=== PATIENT | female | born 1950 | race Caucasian/White ===

== ENCOUNTER 2017-08-11 19:15 | Inpatient (IN) | payer MEDICARE, OTHER ==
[2017-08-11 20:11] LABS: BILIRUBIN,URINE NEGATIVE (NEG); CLARITY,URINE CLOUDY; GLUCOSE,URINE >=1000 mg/dL (NEG); NITRITE,URINE NEGATIVE (NEG); PROTEIN,URINE 100 mg/dL (NEG-TRACE); UROBILINOGEN,URINE 0.2 mg/dL (0.2 mg/dL)
[2017-08-11 20:22] LABS: COLOR,URINE STRAW
[2017-08-11 20:25] LABS: BACTERIA,URINE MANY /HPF (0-FEW); RBC,URINE RARE /HPF (0-2); SQUAMOUS EPITHELIAL CELL,UR MANY /LPF; WBC,URINE OCC /HPF (0-4); YEAST,URINE PRESENT /HPF
[2017-08-11 21:41] LABS: ADD MAN DIFF? NO
[2017-08-11 21:43] LABS: BASO # 0.1 x10^3/uL (0.0-0.2); BASO % 1 % (0-3); EOS % 0 % (0-3); HEMATOCRIT 42.4 % (36.0-47.0); HEMOGLOBIN 13.3 g/dL (12.0-15.5); LYMPH # 2.4 x10^3/uL (1.0-4.8); LYMPH % 17 % (24-48); MEAN CORPUSCULAR HEMOGLOBIN 26 pg (25-35); MEAN CORPUSCULAR HGB CONC 31 g/dL (31-37); MEAN CORPUSCULAR VOLUME 84 fL (79-100); MONO # 1.2 x10^3/uL (0.0-1.1); MONO % 8 % (0-9); NEUT # 10.5 x10^3uL (1.8-7.7); NEUT % 74 % (31-73); PLATELET COUNT 398 x10^3/uL (140-400); RED BLOOD COUNT 5.07 x10^6/uL (3.50-5.40); RED CELL DISTRIBUTION WIDTH 17.2 % (11.5-14.5); WHITE BLOOD COUNT 14.2 x10^3/uL (4.0-11.0)
[2017-08-11 21:52] LABS: INR 1.1 (0.8-1.1); PARTIAL THROMBOPLASTIN TIME 29 SEC (24-38); PROTHROMBIN TIME PATIENT 13.3 SEC (11.7-14.0)
[2017-08-11] MEDS: NYSTATIN 100,000 UNIT/GM TOPICAL OINTMENT 15GM TUBE. TP (21:56)
[2017-08-11] MEDS ORDERED: ONDANSETRON PF 4 MG/2 ML VIAL. IV (22:00)
[2017-08-11] MEDS ORDERED: DEXTROSE 50% 25 GM / 50ML DISP.SYRIN. IV (22:00)
[2017-08-11] MEDS ORDERED: ACETAMINOPHEN 325 MG TABLET. PO (22:00)
[2017-08-11] MEDS ORDERED: MORPHINE SULFATE 2 MG/ML DISP.SYRIN. IV (22:00)
[2017-08-11 22:02] LABS: ANION GAP 16 (6-14); BLOOD UREA NITROGEN 23 mg/dL (7-20); BUN/CREATININE RATIO 23 (6-20); CALCIUM 10.2 mg/dL (8.5-10.1); CARBON DIOXIDE 23 mmol/L (21-32); CHLORIDE 101 mmol/L (98-107); GFR 55.5; GLUCOSE 389 mg/dL (70-99); POTASSIUM 3.7 mmol/L (3.5-5.1); SODIUM 140 mmol/L (136-145)
[2017-08-11 22:07] LABS: ALBUMIN 3.3 g/dL (3.4-5.0); ALBUMIN/GLOBULIN RATIO 0.6 (1.0-1.7); ALK PHOS 136 U/L (46-116); ALT (SGPT) 26 U/L (14-59); AST (SGOT) 21 U/L (15-37); MAGNESIUM 2.2 mg/dL (1.8-2.4); TOTAL BILIRUBIN 0.6 mg/dL (0.2-1.0); TOTAL PROTEIN 8.6 g/dL (6.4-8.2)
[2017-08-11 22:09] LABS: TROPONINI 0.558 ng/mL (0.000-0.055)
[2017-08-11 22:10] LABS: NT-PRO BNP 1517 pg/mL (0-124)
[2017-08-11] MEDS: ERYTHROMYCIN 0.5% OPHTH OINTMENT 1GM TUBE. OU (22:15)
[2017-08-11] MEDS: IV NORMAL SALINE 1000ML BAG 1,000 ML IV (22:19)
[2017-08-12] MEDS: ASPIRIN ENTERIC COATED 325 MG TABLET.DR. PO (02:19)
[2017-08-12 05:55] LABS: ADD MAN DIFF? NO
[2017-08-12 06:02] LABS: BASO # 0.2 x10^3/uL (0.0-0.2); BASO % 1 % (0-3); EOS % 0 % (0-3); LYMPH # 2.2 x10^3/uL (1.0-4.8); LYMPH % 19 % (24-48); MEAN CORPUSCULAR HEMOGLOBIN 26 pg (25-35); MEAN CORPUSCULAR HGB CONC 32 g/dL (31-37); MEAN CORPUSCULAR VOLUME 83 fL (79-100); MONO # 1.2 x10^3/uL (0.0-1.1); MONO % 10 % (0-9); NEUT # 8.5 x10^3uL (1.8-7.7); NEUT % 70 % (31-73); PLATELET COUNT 343 x10^3/uL (140-400); RED BLOOD COUNT 4.56 x10^6/uL (3.50-5.40); RED CELL DISTRIBUTION WIDTH 16.3 % (11.5-14.5); WHITE BLOOD COUNT 12.1 x10^3/uL (4.0-11.0)
[2017-08-12 06:34] LABS: TROPONINI 0.582 ng/mL (0.000-0.055)
[2017-08-12 06:43] LABS: ANION GAP 14 (6-14); BLOOD UREA NITROGEN 18 mg/dL (7-20); CARBON DIOXIDE 21 mmol/L (21-32); CHLORIDE 103 mmol/L (98-107); CREATININE 0.8 mg/dL (0.6-1.0); GFR 71.8; GLUCOSE 323 mg/dL (70-99); POTASSIUM 3.9 mmol/L (3.5-5.1); SODIUM 138 mmol/L (136-145)
[2017-08-12] MEDS ORDERED: HYDROcodone/APAP 5/325MG 1 TAB TABLET PO (08:00)
[2017-08-12] MEDS ORDERED: DEXTROSE 50% 25 GM / 50ML DISP.SYRIN. IV (08:00)
[2017-08-12] MEDS: INSULIN ASPART 300 UNITS/3 ML INSULN.PEN SQ ×7 (08:00→18:14)
[2017-08-12] MEDS ORDERED: INSULIN ASPART 300 UNITS/3 ML INSULN.PEN SQ (08:00)
[2017-08-12] MEDS ORDERED: CALCIUM CARBONATE 500 MG TAB.CHEW PO (08:00)
[2017-08-12] MEDS ORDERED: ONDANSETRON PF 4 MG/2 ML VIAL. IV (08:00)
[2017-08-12 08:28] LABS: POC GLUCOSE 295 mg/dL (70-99)
[2017-08-12] MEDS: INSULIN DETEMIR 300 UNITS/3 ML INSULN.PEN. SQ (09:00)
[2017-08-12] MEDS: NYSTATIN 100,000 UNIT/GM TOPICAL OINTMENT 15GM TUBE. TP (09:00)
[2017-08-12] MEDS: LISINOPRIL 10 MG TABLET PO (09:30)
[2017-08-12] MEDS: METOPROLOL TART IMMED RELEASE 25 MG TABLET. PO ×2 (09:30→21:05)
[2017-08-12] MEDS: EYE-STREAM OPHTH SOLUTION 120 ML BOTTLE. OU (09:30)
[2017-08-12] MEDS: CITALOPRAM 20 MG TABLET. PO (09:30)
[2017-08-12 11:58] LABS: POC GLUCOSE 239 mg/dL (70-99)
[2017-08-12 12:00] LABS: TROPONINI 0.408 ng/mL (0.000-0.055)
[2017-08-12 13:02] LABS: CREATINE KINASE 256 U/L (26-192)
[2017-08-12 13:02] LABS: CHOLESTEROL 227 mg/dL (0-200); HDLC 67 mg/dL (40-60); LDLC 135 mg/dL (0-100); NON-HDL CHOLESTEROL 160 mg/dL (0-129); TRIGLYCERIDES 123 mg/dL (0-150); VLDLC 25 mg/dL (0-40)
[2017-08-12 13:05] LABS: CHOLESTEROL/HDL RATIO 3.4
[2017-08-12 13:10] LABS: THYROID STIM HORMONE (TSH) 0.881 uIU/mL (0.358-3.74)
[2017-08-12 16:49] LABS: POC GLUCOSE 345 mg/dL (70-99)
[2017-08-12 20:28] LABS: POC GLUCOSE 199 mg/dL (70-99)
[2017-08-12] MEDS: ATORVASTATIN CALCIUM 20 MG TABLET PO (21:04)
[2017-08-12] MEDS: NYSTATIN TOPICAL POWDER 15GM BOTTLE. TP (21:05)
[2017-08-13] MEDS: LABETALOL 20 MG/4 ML DISP.SYRIN. IVP ×3 (03:21→23:43)
[2017-08-13 07:57] LABS: POC GLUCOSE 256 mg/dL (70-99)
[2017-08-13] MEDS: INSULIN ASPART 300 UNITS/3 ML INSULN.PEN SQ ×5 (08:00→17:37)
[2017-08-13] MEDS: INSULIN DETEMIR 300 UNITS/3 ML INSULN.PEN. SQ (09:00)
[2017-08-13] MEDS: ASPIRIN ENTERIC COATED 81 MG TABLET.DR. PO (09:49)
[2017-08-13] MEDS: METOPROLOL TART IMMED RELEASE 25 MG TABLET. PO ×3 (09:50→21:16)
[2017-08-13] MEDS: NYSTATIN TOPICAL POWDER 15GM BOTTLE. TP ×3 (09:50→21:20)
[2017-08-13] MEDS: CITALOPRAM 20 MG TABLET. PO (09:50)
[2017-08-13] MEDS: LISINOPRIL 10 MG TABLET PO (09:50)
[2017-08-13 12:16] LABS: POC GLUCOSE 327 mg/dL (70-99)
[2017-08-13] MEDS: UREA 40% TOPICAL CREAM 28.3GM TUBE. TP (12:44)
[2017-08-13 17:13] LABS: POC GLUCOSE 237 mg/dL (70-99)
[2017-08-13] MEDS: ATORVASTATIN CALCIUM 20 MG TABLET PO (21:14)
[2017-08-13 21:22] LABS: POC GLUCOSE 224 mg/dL (70-99)
[2017-08-14 08:19] LABS: POC GLUCOSE 261 mg/dL (70-99)
[2017-08-14] MEDS: CITALOPRAM 20 MG TABLET. PO (09:29)
[2017-08-14] MEDS: ASPIRIN ENTERIC COATED 81 MG TABLET.DR. PO (09:29)
[2017-08-14] MEDS: METOPROLOL TART IMMED RELEASE 25 MG TABLET. PO (09:29)
[2017-08-14] MEDS: NYSTATIN TOPICAL POWDER 15GM BOTTLE. TP (09:30)
[2017-08-14] MEDS: LISINOPRIL 10 MG TABLET PO (09:30)
[2017-08-14] MEDS: UREA 40% TOPICAL CREAM 28.3GM TUBE. TP (09:31)
[2017-08-14] MEDS: INSULIN ASPART 300 UNITS/3 ML INSULN.PEN SQ ×4 (10:47→12:10)
[2017-08-14] MEDS: INSULIN DETEMIR 300 UNITS/3 ML INSULN.PEN. SQ (10:47)
[2017-08-14 11:54] LABS: POC GLUCOSE 393 mg/dL (70-99)
== END 2017-08-14 13:00 | DRG 280 ==
LOC: ER 19:15 → 2 SOUTH 20:33
DX: I21.4 Non-ST elevation (NSTEMI) myocardial infarction (principal); E43 Unspecified severe protein-calorie malnutrition; E11.22 Type 2 diabetes mellitus with diabetic chronic kidney disease; E11.42 Type 2 diabetes mellitus with diabetic polyneuropathy; E11.65 Type 2 diabetes mellitus with hyperglycemia; I48.91 Unspecified atrial fibrillation; Q21.1 Atrial septal defect; B35.1 Tinea unguium; S02.2XXA Fracture of nasal bones, initial encounter for closed fracture; D72.828 Other elevated white blood cell count; E86.0 Dehydration; B30.9 Viral conjunctivitis, unspecified; B37.9 Candidiasis, unspecified; I16.0 Hypertensive urgency; E66.9 Obesity, unspecified; E78.5 Hyperlipidemia, unspecified; F20.9 Schizophrenia, unspecified; F31.9 Bipolar disorder, unspecified; H93.19 Tinnitus, unspecified ear; M20.40 Other hammer toe(s) (acquired), unspecified foot; I12.9 Hypertensive chronic kidney disease with stage 1 through stage 4 chronic kidney disease, or unspecified chronic kidney disease; N18.9 Chronic kidney disease, unspecified; W19.XXXA Unspecified fall, initial encounter; F41.9 Anxiety disorder, unspecified; M19.90 Unspecified osteoarthritis, unspecified site; I89.0 Lymphedema, not elsewhere classified; Z68.32 Body mass index [BMI] 32.0-32.9, adult; Z86.73 Personal history of transient ischemic attack (TIA), and cerebral infarction without residual deficits; Z90.710 Acquired absence of both cervix and uterus; Z91.81 History of falling; Y93.89 Activity, other specified; Y92.098 Other place in other non-institutional residence as the place of occurrence of the external cause; Z90.49 Acquired absence of other specified parts of digestive tract; Y99.8 Other external cause status
CPT/HCPCS: 36415; 70450; 70486; 72125; 80048; 80053; 80061; 81001; 82550; 82962; 83036; 83735; 83880; 84443; 84484; 85025; 85610; 85730; 87086; 93005; 93306; 93880; 96360; 97110-GP; 97116-GP; 97162-GP; 97530-GP; 99285; 99285-25; J0690; J1815; J3490; J7030

== ENCOUNTER 2019-10-21 12:10 | Emergency (ER) | payer MEDICARE, MEDICAID ==
[~2019-10-21 12:10] MED LIST: AMLO10TA4 PO; AMLO5TAB10 PO; ASPI325T8 PO; ATOR20TA PO; ATOR20TA58 PO; BUME2TAB3 PO; CEPH-263 PO; CETI10TA24 PO; CITA20TA9 PO; DIVA250T PO; ENOX40DI SQ; HYDR-2868 PO; HYDR12.58 PO; INSU100I17 SQ; INSU100I27 SQ; INSU100V13 SQ; LEXAPRO10 MG PO; LISI10TA2 PO; LORA10TA68 PO; METO-239 PO; METO25TA4 PO; NYST15PO9 TP; SIMV20TA PO
[2019-10-21 13:00] VITALS: BP 148/69
--- NOTE | 2019-10-21 13:49 | RAD ---
EXAM: CT Head without IV contrast CLINICAL HISTORY: Trauma, head injury COMPARISON: CT head 10/03/2019 TECHNIQUE: Routine CT of the head without contrast. Soft tissues and bone windows were reviewed. RS compliance statement - One or more of the following individualized dose reduction techniques were utilized for this study: 1. Automated exposure control 2. Adjustment of the mA and/or kV according to patient size 3. Use of iterative reconstruction technique FINDINGS: The previously described left parafalcine hematoma is less conspicuous on today's examination. There is no evidence of new hemorrhage, mass or extra-axial fluid collection. Vila-white differentiation is maintained with no evidence of edema. Encephalomalacia left occipital and bilateral frontal regions are essentially unchanged. Subcortical, periventricular and deep white matter hypoattenuation likely changes of chronic white matter disease. There is no mass effect or shift of the intracranial structures. The ventricles, basilar cisterns and cortical sulci are normal in size and configuration for the patients stated age. The cerebellum and brainstem are unremarkable. The calvarium demonstrates no evidence of fracture or focal lesion. There is normal aeration of the visualized paranasal sinuses and mastoid air cells. The visualized portions of the orbits are normal. Prominent subcutaneous soft tissue swelling overlying the right frontal region with scalp hematoma. IMPRESSION: 1. Patency described left parafalcine subdural hematoma is less conspicuous on today's examination. 2. White matter hypoattenuation likely changes of chronic small vessel disease. 3. 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 4. Subcutaneous soft tissue swelling and scalp hematoma right frontal region. Electronically signed by: Carrington Molina MD (10/21/2019 1:46 PM) [email or web address]
--- NOTE | 2019-10-21 13:49 | RAD ---
EXAM: Right knee, 3 views. HISTORY: Fall. Pain. COMPARISON: None. FINDINGS: 3 views of the right knee are obtained. There is no fracture, dislocation or subluxation. There is no joint effusion. There is a small bone island within the proximal tibial metaphysis. There may be an infrapatellar soft tissue contusion. IMPRESSION: No acute osseous finding. Electronically signed by: Julianna Caro MD (10/21/2019 1:46 PM) [email or web address]
[2019-10-21 14:57] LABS: BILIRUBIN,URINE NEGATIVE (NEG); CLARITY,URINE CLEAR; COLOR,URINE YELLOW; NITRITE,URINE NEGATIVE (NEG); PROTEIN,URINE NEGATIVE (NEG-TRACE); UROBILINOGEN,URINE 0.2 mg/dL (0.2 mg/dL)
[2019-10-21 15:08] LABS: RBC,URINE OCC /HPF (0-2)
[2019-10-21 15:09] LABS: BACTERIA,URINE MANY /HPF (0-FEW); HYALINE CASTS, URINE OCCASIONAL /HPF; SQUAMOUS EPITHELIAL CELL,UR MANY /LPF
--- NOTE | 2019-10-21 15:10 | PHYS DOC ---
Past Medical History Past Medical History: Bipolar, Diabetes-Type II, Hypertension, Stroke Additional Past Medical Histor: MULTIPLE FALLS, EDEMA, COGNITIVE COMMUNICATION DEFICIT Past Surgical History: Other Additional Past Surgical Histo: UNKNOWN Smoking Status: Former Smoker Alcohol Use: None Drug Use: None Adult General Chief Complaint Chief Complaint: MECHANICAL FALL HPI HPI Patient is a 69 year old f with cc of fall [facility] she had a subdural to earlier in this month she tripped she was carrying 2 cups of water she could not catch her self she landed on her right knee and the top of her head denies any neck pain at all no numbness or tingling. No loss of consciousness symptoms are moderate in nature Review of Systems Review of Systems Constitutional: Denies fever or chills [] Eyes: Denies change in visual acuity, redness, or eye pain [] HENT: Denies nasal congestion or sore throat [] Respiratory: Denies cough or shortness of breath [] Cardiovascular: No additional information not addressed in HPI [] GI: Denies abdominal pain, nausea, vomiting, bloody stools or diarrhea [] All other systems were reviewed and found to be within normal limits, except as documented in this note. Allergies Allergies Allergies Coded Allergies Type Severity Reaction Last Updated Verified No Known Drug Allergies 07/04/14 No Physical Exam Physical Exam Constitutional: Well developed, well nourished, no acute distress, non-toxic appearance. [] HENT: Normocephalic, there is a contusion to the forehead there is no laceration there is no neck tenderness full range of motion of the neck specifically detailed neurologic examination of the hands revealed normal sensation normal strength no numbness or tingling Eyes: PERRLA, EOMI, conjunctiva normal, no discharge. [] Neck: Normal range of motion, no tenderness, supple, no stridor. [] Cardiovascular:Heart rate regular rhythm, no murmur [] Lungs & Thorax: Bilateral breath sounds clear to auscultation [] Abdomen: Bowel sounds normal, soft, no tenderness, no masses, no pulsatile masses. [] Skin: Warm, dry, no erythema, no rash. [] Back: No tenderness, no CVA tenderness. [] Extremities: There is a contusion to the right knee mild swelling mild ecchymosis Neurologic: Alert and oriented X 3, normal motor function, normal sensory functi on, no focal deficits noted. [] Psychologic: Affect normal, judgement normal, mood normal. [] EKG EKG [] Radiology/Procedures Radiology/Procedures []IMPRESSION: 1. Patency described left parafalcine subdural hematoma is less conspicuous on today's examination. 2. White matter hypoattenuation likely changes of chronic small vessel disease. 3. 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 4. Subcutaneous soft tissue swelling and scalp hematoma right frontal region. Electronically signed by: Carrington Molina MD (10/21/2019 1:46 PM) [email or web address] Impressions: FINDINGS: 3 views of the right knee are obtained. There is no fracture, dislocation or subluxation. There is no joint effusion. There is a small bone island within the proximal tibial metaphysis. There may be an infrapatellar soft tissue contusion. IMPRESSION: No acute osseous finding. Electronically signed by: Julianna Caro MD (10/21/2019 1:46 PM) [email or web address] DICTATED and SIGNED BY: JULIANNA CARO MD DATE: 10/21/19 134 Course & Med Decision Making Course & Med Decision Making Pertinent Labs and Imaging studies reviewed. (See chart for details) [] 69-year-old female presenting with mechanical fall she did have a subdural earlier this month noted the imaging above she is alert and oriented I think she is safe for discharge back to facility. Reassurance was provided Dragon Disclaimer Dragon Disclaimer This electronic medical record was generated, in whole or in part, using a voice recognition dictation system. Departure Departure Impression: Primary Impression: Fall Disposition: 01 HOME, SELF-CARE Condition: STABLE Patient Instructions: Fall Prevention and Home Safety, [id number] STUART ERAZO MD Oct 21, 2019 15:10
== END 2019-10-21 17:40 | disposition home or self-care (01) ==
LOC: ER 12:10
DX: S00.83XA Contusion of other part of head, initial encounter (principal); S80.01XA Contusion of right knee, initial encounter; E11.9 Type 2 diabetes mellitus without complications; I10 Essential (primary) hypertension; F31.9 Bipolar disorder, unspecified; Z86.73 Personal history of transient ischemic attack (TIA), and cerebral infarction without residual deficits; Z87.891 Personal history of nicotine dependence; W18.39XA Other fall on same level, initial encounter; Y93.89 Activity, other specified; Y92.89 Other specified places as the place of occurrence of the external cause; Y99.8 Other external cause status
CPT/HCPCS: 70450; 73562; 81001; 87086; 99285-25

== ENCOUNTER → 2019-10-27 | Outpatient (CLI) | payer MEDICARE, MEDICAID ==
[2019-10-05 11:09] VITALS: BP_DIAS 69
[2019-10-21 13:00] VITALS: BP_SYST 148
--- NOTE | 2019-10-27 09:25 | RAD ---
CT scan of the head without contrast 10/27/2019 Clinical History: History of subdural hematoma. Technique: Unenhanced, contiguous, 5 mm axial sections were obtained through the head. One or more of the following individualized dose reduction techniques were utilized for this study: 1. Automated exposure control. 2. Adjustment of the mA and/or kV according to patient size. 3. Use of iterative reconstruction technique. Findings: Comparison study is dated 10/21/2019. There is generalized parenchymal atrophy. Areas of decreased attenuation are seen within the periventricular and subcortical white matter of both cerebral hemispheres consistent with areas of small vessel ischemic disease. An area of encephalomalacia is seen involving the left occipital lobe, unchanged. The small subdural hematoma seen within the interhemispheric fissure on the previous study has resolved. No acute parenchymal abnormality is seen. No extra-axial fluid collection is noted. No skull fracture is seen. Impression: The small subdural hematoma within the interhemispheric fissure seen on the previous examination has resolved. No acute intracranial abnormality is seen. Electronically signed by: Elias Cool MD (10/27/2019 9:22 AM) [id number]
== END | disposition home or self-care (01) ==
LOC: CT 09:15
PROVIDERS: ATTEND Family Medicine
DX: G93.89 Other specified disorders of brain (principal)
CPT/HCPCS: 70450

== ENCOUNTER 2020-02-12 09:13 | Inpatient (IN) | payer MEDICARE, MEDICAID ==
[~2020-02-12] VITALS: Ht 152.4 cm; Wt 81.0 kg
[~2020-02-12 09:13] MED LIST changes: -CETI10TA24 PO; +CETI10TA74 PO
[2020-02-12] MEDS ORDERED: IV NORMAL SALINE 1000ML BAG 1,000 ML IV ONE ×2 (09:30→12:00)
[2020-02-12] MEDS ORDERED: DEXAMETHASONE SOD PHOS 4 MG/ML VIAL IVP ONE (10:15)
[2020-02-12] MEDS ORDERED: PIPERACILLIN/TAZOBACTAM 4.5 GM in IV NORMAL SALINE 100ML 100 ML IV ONE (10:15)
[2020-02-12] MEDS ORDERED: ONDANSETRON PF 4 MG/2 ML VIAL. IVP ONE (10:15)
[2020-02-12 10:23] LABS: CALCIUM 9.5 mg/dL (8.5-10.1); CREATININE 1.8 mg/dL (0.6-1.0); GFR 27.9; POTASSIUM 3.5 mmol/L (3.5-5.1)
[2020-02-12 10:29] LABS: ALBUMIN 2.8 g/dL (3.4-5.0); ALBUMIN/GLOBULIN RATIO 0.6 (1.0-1.7); MAGNESIUM 2.3 mg/dL (1.8-2.4); TOTAL BILIRUBIN 0.2 mg/dL (0.2-1.0); TOTAL PROTEIN 7.5 g/dL (6.4-8.2)
[2020-02-12 10:40] LABS: PROTHROMBIN TIME PATIENT 12.5 SEC (11.7-14.0)
--- NOTE | 2020-02-12 10:41 | RAD ---
EXAM: PORTABLE CHEST 1V INDICATION: Reason: weakness, fall / Spl. Instructions: / History: . TECHNIQUE: Single view COMPARISON: 10/03/2019 chest x-ray FINDINGS: Stable borderline enlargement of the cardiac silhouette. Calcification and tortuosity of the thoracic aorta is redemonstrated. There is no hilar or mediastinal mass. The lungs are mildly hypoventilatory but otherwise clear. There is no pleural effusion or pneumothorax. There are no significant osseous abnormalities. IMPRESSION: No active cardiopulmonary disease. Electronically signed by: Ra Leach MD (02/12/2020 10:38 AM) [id number]
--- NOTE | 2020-02-12 10:54 | RAD ---
EXAM: CT Head without IV contrast INDICATION: Reason: syncope, pain s/p fall,ALSO CXR GILLES ROONEY IN ROOM, IV, LABS 10:10AM. NC / Spl. Instructions: / History: TECHNIQUE: Multi-detector row CT images were obtained of the head without the use of IV contrast. All CT scans performed at this facility utilize dose optimization techniques as appropriate to the exam, including the following: Automated exposure control and adjustment of the mA and/or KV according to patient size (this includes techniques or standardized protocols for targeted exams where dose is indication/reason for exam). COMPARISON: 10/27/[address] FINDINGS: BRAIN PARENCHYMA: No evidence of acute intraparenchymal hemorrhage or infarct. There is chronic septal malacia in the left occipital lobe similar to prior and generalized parenchymal volume loss with white matter low density compatible chronic ischemic microvascular change. VENTRICLES & EXTRA-AXIAL SPACES: Ventricles are within normal limits. Basilar cisterns are patent. No pathologic extra-axial fluid collection or mass. ORBITS: Orbital contents are unremarkable. SINUSES: Visualized paranasal sinuses and mastoid air cells are clear. OSSEOUS & SOFT TISSUES: Calvarium and skull base are intact. IMPRESSION: No acute intracranial pathology. Atrophy and chronic ischemic microvascular change with a chronic infarct in the left occipital lobe. EXAM: CT Cervical Spine without IV contrast INDICATION: Reason: syncope, pain s/p fall,ALSO CXR GILLES ROONEY IN ROOM, IV, LABS 10:10AM. NC / Spl. Instructions: / History: TECHNIQUE: Multi-detector row CT images were obtained through the cervical spine without the use of IV contrast. Post-processing sagittal and coronal reconstructed images were obtained for interpretation. All CT scans performed at this facility utilize dose optimization techniques as appropriate to the exam, including the following: Automated exposure control and adjustment of the mA and/or KV according to patient size (this includes techniques or standardized protocols for targeted exams where dose is indication/reason for exam). COMPARISON: MRI C-spine 05/28/2014 FINDINGS: CRANIOCERVICAL JUNCTION: Unremarkable. ALIGNMENT: Alignment is within normal limits. OSSEOUS: Generalized osteopenia. No acute fracture or aggressive appearing osseous lesions noted. DISC SPACES: Also mild degenerative changes in the cervical spine, notably at C6-C7 where disc space narrowing and minimal endplate ossific spurring is most conspicuous. FACET JOINTS: Unremarkable SPINAL CANAL: Unremarkable. NEUROFORAMINA: Unremarkable. SOFT TISSUES: Unremarkable. IMPRESSION: No acute findings in the cervical spine. No acute fracture or traumatic malalignment shown. Electronically signed by: Ra Leach MD (02/12/2020 10:51 AM) [id number]
[2020-02-12 10:57] LABS: VAL ACID 47 mcg/mL (50-100)
--- NOTE | 2020-02-12 10:59 | RAD ---
PROCEDURE: HUMERUS RIGHT, FOREARM RIGHT STUDY DATE: 02/12/2020 CLINICAL INDICATION / HISTORY: Reason: Right forearm pain s/p fall / Spl. Instructions: / History: . TECHNIQUE: Right forearm 2 views. AP and lateral views. COMPARISON: None FINDINGS: No fracture or dislocation is identified. The bone density appears normal. The wrist and elbow joints are approximated. No soft tissue abnormality is seen. IMPRESSION: No abnormality identified. PROCEDURE: HUMERUS RIGHT, FOREARM RIGHT STUDY DATE: 02/12/2020 CLINICAL INDICATION / HISTORY: Reason: Right arm pain s/p fall / Spl. Instructions: / History: . TECHNIQUE: Two views of the right humerus were obtained COMPARISON: Right forearm x-rays same day FINDINGS: The osseous structures are normally mineralized. There is normal bony alignment present. There is no evidence of acute fracture or dislocation identified. The overlying soft tissues are grossly unremarkable. IMPRESSION: Unremarkable examination of the right humerus. Electronically signed by: Ra Leach MD (02/12/2020 10:56 AM) [id number]
[2020-02-12] MEDS ORDERED: fentaNYL PF VIAL 100 MCG/2 ML VIAL IV ONE (11:15)
--- NOTE | 2020-02-12 11:33 | PHYS DOC ---
Past Medical History Past Medical History: Bipolar, Diabetes-Type II, Hypertension, Stroke Additional Past Medical Histor: MULTIPLE FALLS, EDEMA, COGNITIVE COMMUNICATION DEFICIT Past Medical History Limited due to patient's baseline mentation. Past Surgical History: Other Additional Past Surgical Histo: UNKNOWN Past Surgical History Limited due to patient's baseline mentation. Smoking Status: Former Smoker Alcohol Use: None Drug Use: None Social History Limited due to patient's baseline mentation. General Adult EDM: Chief Complaint: MECHANICAL FALL HPI: HPI: Patient is a 69 year old female with history of prior stroke with cognitive delay presents after being found "face down" by nursing staff at 0745 after unwitnessed fall. Patient reports some right arm pain. Denies other injury. Reports history of nausea and vomiting. Denies known fever. Denies COVID-19 exposure. History of present illness limited due to patient's baseline mentation. Review of Systems: Review of Systems: Constitutional: Denies fever or chills HENT: Denies epistaxis GI: Reports nausea and vomiting : Denies dysuria Musculoskeletal: Reports right arm pain; denies neck pain Integument: Denies laceration Neurologic: Denies headache Review of systems limited due to patient's baseline mentation. Current Medications: Current Medications Medications (Trade) Dose Ordered Sig/Glory Start Time Stop Time Status Last Admin Dose Admin Dexamethasone Sodium Phosphate (Decadron) 10 mg 1X ONCE 02/12/20 10:15 02/12/20 10:16 DC 02/12/20 10:25 10 MG Fentanyl Citrate (Fentanyl 2ml Vial) 50 mcg 1X ONCE 02/12/20 11:15 02/12/20 11:17 DC 02/12/20 11:20 50 MCG Ondansetron HCl (Zofran) 4 mg 1X ONCE 02/12/20 10:15 02/12/20 10:16 DC 02/12/20 10:24 4 MG Piperacillin Sod/ Tazobactam Sod 4.5 gm/Sodium Chloride 100 ml @ 200 mls/hr 1X ONCE 02/12/20 10:15 02/12/20 10:44 DC 02/12/20 11:11 200 MLS/HR Sodium Chloride 1,000 ml @ 1,000 mls/hr 1X ONCE 02/12/20 09:30 02/12/20 10:29 DC 02/12/20 09:30 1,000 MLS/HR Allergies: Allergies: Allergies Coded Allergies Type Severity Reaction Last Updated Verified No Known Drug Allergies 07/04/14 No Physical Exam: PE: Constitutional: Well developed, well nourished, no acute distress, non-toxic appearance HENT: Normocephalic, atraumatic, no epistaxis noted Eyes: PERRL, EOMI, conjunctiva normal, no discharge Neck: C-collar in place, no midline tenderness, supple Lungs & Thorax: Increased work of breathing, tachypnea Abdomen: Soft, no tenderness, no guarding; pelvis stable and nontender Skin: Warm, dry, no erythema, no rash Back: No midline tenderness, no CVA tenderness Extremities:Right humeral and forearm tenderness with ROM, no deformity, right radial pulse +2, sensation intact Neurologic: Alert and oriented X name, confused, GCS 14, no focal deficits noted Psychologic: Affect normal, judgment abnormal Current Patient Data: Labs: Laboratory Tests Test 02/12/20 09:50 02/12/20 10:22 Prothrombin Time 12.5 SEC (11.7-14.0) Prothrombin Time INR 1.0 (0.8-1.1) Activated Partial Thromboplast Time 25 SEC (24-38) Sodium Level 141 mmol/L (136-145) Potassium Level 3.5 mmol/L (3.5-5.1) Chloride Level 100 mmol/L (98-107) Carbon Dioxide Level 27 mmol/L (21-32) Anion Gap 14 (6-14) Blood Urea Nitrogen 34 mg/dL (7-20) H Creatinine 1.8 mg/dL (0.6-1.0) H Estimated GFR (Cockcroft-Gault) 27.9 BUN/Creatinine Ratio 19 (6-20) Glucose Level 242 mg/dL (70-99) H Lactic Acid Level 3.6 mmol/L (0.4-2.0) H Calcium Level 9.5 mg/dL (8.5-10.1) Magnesium Level 2.3 mg/dL (1.8-2.4) Total Bilirubin 0.2 mg/dL (0.2-1.0) Aspartate Amino Transferase (AST) 30 U/L (15-37) Alanine Aminotransferase (ALT) 29 U/L (14-59) Alkaline Phosphatase 98 U/L (46-116) Creatine Kinase 109 U/L (26-192) Creatine Kinase MB (Mass) 0.9 ng/mL (0.0-3.6) Creatine Kinase MB Relative Index 0.8 % (0-4) Troponin I Quantitative < 0.017 ng/mL (0.000-0.055) Total Protein 7.5 g/dL (6.4-8.2) Albumin 2.8 g/dL (3.4-5.0) L Albumin/Globulin Ratio 0.6 (1.0-1.7) L Valproic Acid Level 47 mcg/mL (50-100) L Valproic Acid Last Dose Date Unknown Valproic Acid Last Dose Time Unknown Laboratory Tests 02/12/20 09:50 Vital Signs: Vital Signs Date Time Temp Pulse Resp B/P (MAP) Pulse Ox O2 Delivery O2 Flow Rate FiO2 02/12/20 10:10 97.7 61 25 167/79 (108) 90 Nasal Cannula 5.0 97.7 EKG: EKG: @0941 NSR at 68bpm, wandering baseline in V3, NO ST elevation, QRS 90ms, QT/QTc 502/534ms Radiology/Procedures: Radiology/Procedures: PROCEDURE: CT HEAD AND CERVICAL SPINE WO EXAM: CT Head without IV contrast INDICATION: Reason: syncope, pain s/p fall,ALSO CXR GILLES ROONEY IN ROOM, IV, LABS 10:10AM. NC / Spl. Instructions: / History: TECHNIQUE: Multi-detector row CT images were obtained of the head without the use of IV contrast. All CT scans performed at this facility utilize dose optimization techniques as appropriate to the exam, including the following: Automated exposure control and adjustment of the mA and/or KV according to patient size (this includes techniques or standardized protocols for targeted exams where dose is indication/reason for exam). COMPARISON: 10/27/[address] FINDINGS: BRAIN PARENCHYMA: No evidence of acute intraparenchymal hemorrhage or infarct. There is chronic septal malacia in the left occipital lobe similar to prior and generalized parenchymal volume loss with white matter low density compatible chronic ischemic microvascular change. VENTRICLES & EXTRA-AXIAL SPACES: Ventricles are within normal limits. Basilar cisterns are patent. No pathologic extra-axial fluid collection or mass. ORBITS: Orbital contents are unremarkable. SINUSES: Visualized paranasal sinuses and mastoid air cells are clear. OSSEOUS & SOFT TISSUES: Calvarium and skull base are intact. IMPRESSION: No acute intracranial pathology. Atrophy and chronic ischemic microvascular change with a chronic infarct in the left occipital lobe. EXAM: CT Cervical Spine without IV contrast INDICATION: Reason: syncope, pain s/p fall,ALSO CXR GILLES ROONEY IN ROOM, IV, LABS 10:10AM. NC / Spl. Instructions: / History: TECHNIQUE: Multi-detector row CT images were obtained through the cervical spine without the use of IV contrast. Post-processing sagittal and coronal reconstructed images were obtained for interpretation. All CT scans performed at this facility utilize dose optimization techniques as appropriate to the exam, including the following: Automated exposure control and adjustment of the mA and/or KV according to patient size (this includes techniques or standardized protocols for targeted exams where dose is indication/reason for exam). COMPARISON: MRI C-spine 05/28/2014 FINDINGS: CRANIOCERVICAL JUNCTION: Unremarkable. ALIGNMENT: Alignment is within normal limits. OSSEOUS: Generalized osteopenia. No acute fracture or aggressive appearing osseous lesions noted. DISC SPACES: Also mild degenerative changes in the cervical spine, notably at C6-C7 where disc space narrowing and minimal endplate ossific spurring is most conspicuous. FACET JOINTS: Unremarkable SPINAL CANAL: Unremarkable. NEUROFORAMINA: Unremarkable. SOFT TISSUES: Unremarkable. IMPRESSION: No acute findings in the cervical spine. No acute fracture or traumatic malalignment shown. Electronically signed by: Ra Leach MD (02/12/2020 10:51 AM) [id number] PROCEDURE: PORTABLE CHEST 1V EXAM: PORTABLE CHEST 1V INDICATION: Reason: weakness, fall / Spl. Instructions: / History: . TECHNIQUE: Single view COMPARISON: 10/03/2019 chest x-ray FINDINGS: Stable borderline enlargement of the cardiac silhouette. Calcification and tortuosity of the thoracic aorta is redemonstrated. There is no hilar or mediastinal mass. The lungs are mildly hypoventilatory but otherwise clear. There is no pleural effusion or pneumothorax. There are no significant osseous abnormalities. IMPRESSION: No active cardiopulmonary disease. Electronically signed by: Ra Leach MD (02/12/2020 10:38 AM) [id number] PROCEDURE: HUMERUS RIGHT, FOREARM RIGHT STUDY DATE: 02/12/2020 CLINICAL INDICATION / HISTORY: Reason: Right forearm pain s/p fall / Spl. Instructions: / History: . TECHNIQUE: Right forearm 2 views. AP and lateral views. COMPARISON: None FINDINGS: No fracture or dislocation is identified. The bone density appears normal. The wrist and elbow joints are approximated. No soft tissue abnormality is seen. IMPRESSION: No abnormality identified. PROCEDURE: HUMERUS RIGHT, FOREARM RIGHT STUDY DATE: 02/12/2020 CLINICAL INDICATION / HISTORY: Reason: Right arm pain s/p fall / Spl. Instructions: / History: . TECHNIQUE: Two views of the right humerus were obtained COMPARISON: Right forearm x-rays same day FINDINGS: The osseous structures are normally mineralized. There is normal bony alignment present. There is no evidence of acute fracture or dislocation identified. The overlying soft tissues are grossly unremarkable. IMPRESSION: Unremarkable examination of the right humerus. Electronically signed by: Ra Leach MD (02/12/2020 10:56 AM) [id number] Course & Med Decision Making: Course & Med Decision Making Pertinent Labs and Imaging studies reviewed. (See chart for details) Patient presents with history of unwitnessed fall at longterm. Reports patient found face down. Patient with history of cognitive delay and poor historian. Patient with SOA and hypoxia down to 88% on RA. Improved with supplemental O2. SIRS criteria met. Cannot exclude COVID19. COVID precautions in place. CT head/cervical spine without acute process. Labs obtained and pos db to chart. COVID testing pending. Lactic acidosis noted. CXR without acute process. Patient also c/o on right arm pain on exam. XR humerus and forearm without acute process. UA without signs of infection. Patient requiring admission for further evaluation and treatment. Discussed with Dr. Olvera ( hospitalist) who is in agreement with admission. COVID-19 CRITERIA: The patient was evaluated during the global COVID-19 pandemic, and that diagnosis was suspected/considered upon their initial presentation. Their evaluation, treatment and testing was consistent with current guidelines for patients who present with complaints or symptoms that may be related to COVID-19. Ralf Disclaimer: Ralf Disclaimer: This electronic medical record was generated, in whole or in part, using a voice recognition dictation system. Departure Departure Impression: Primary Impression: Weakness Additional Impressions: Suspected 2019 novel coronavirus infection Lactic acidosis SIRS (systemic inflammatory response syndrome) Elevated d-dimer Disposition: ADMITTED INPATIENT Admitting Physician: VINAY Ames) Condition: GUARDED Referrals: NON,STAFF (PCP) Justicifation of Admission Dx: Justifications for Admission: Justification of Admission Dx: Yes Comments: Weakness, lactic acidosis, SIRS COVID-19 Assessment: COVID-19 Patient Risks: Age 65 or older: Yes Sign of co-morbidity: Yes Exp to person + for COVID: No Exp to PUI: Yes ([facility] has + patients) Travel from affected area: No Lower respiratory symptoms: Yes Fever: No PPE Use: Full PPE with N95 mask or PAPR: Yes Critical Care Time Critical care time was 30 minutes which includes time at bedside, spent in discussion of patient's care with specialists and/or family members, with interpretation of laboratory and/or radiological studies and is exclusive of procedures. ALEM LINDSAY DO Feb 12, 2020 11:33
[2020-02-12 11:40] LABS: BASO # 0.1 x10^3/uL (0.0-0.2); BASO % 1 % (0-3); EOS % 0 % (0-3); HEMATOCRIT 33.7 % (36.0-47.0); HEMOGLOBIN 10.8 g/dL (12.0-15.5); LYMPH # 0.9 x10^3/uL (1.0-4.8); LYMPH % 7 % (24-48); MEAN CORPUSCULAR HEMOGLOBIN 26 pg (25-35); MEAN CORPUSCULAR HGB CONC 32 g/dL (31-37); MEAN CORPUSCULAR VOLUME 80 fL (79-100); MONO # 0.8 x10^3/uL (0.0-1.1); MONO % 6 % (0-9); NEUT # 11.6 x10^3/uL (1.8-7.7); NEUT % 87 % (31-73); PLATELET COUNT 365 x10^3/uL (140-400); RED BLOOD COUNT 4.19 x10^6/uL (3.50-5.40); RED CELL DISTRIBUTION WIDTH 17.4 % (11.5-14.5); WHITE BLOOD COUNT 13.4 x10^3/uL (4.0-11.0)
[2020-02-12 11:47] LABS: BILIRUBIN,URINE NEGATIVE (NEG); CLARITY,URINE CLEAR; COLOR,URINE YELLOW; NITRITE,URINE NEGATIVE (NEG); PH,URINE 5.5 (<5.0-8.0); PROTEIN,URINE NEGATIVE (NEG-TRACE); UROBILINOGEN,URINE 0.2 mg/dL (0.2 mg/dL)
[2020-02-12 11:54] LABS: AMORPHOUS SEDIMENT,UR PRESENT /HPF; BACTERIA,URINE 0 /HPF (0-FEW); HYALINE CASTS, URINE OCCASIONAL /HPF; RBC,URINE OCC /HPF (0-2); SQUAMOUS EPITHELIAL CELL,UR FEW /LPF
[2020-02-12] MEDS ORDERED: IV NORMAL SALINE 500ML BAG 500 ML IV ONE (12:00)
[2020-02-12 12:43] LABS: % BASOS 2 % (0-3); % LYMPHS 7 % (24-48); % MONOS 4 % (0-10); % SEGS 87 % (35-66); PLT ESTIMATE ADEQUATE (ADEQUATE)
[2020-02-12 12:44] LABS: ANISOCYTOSIS SLIGHT
[2020-02-12] MEDS ORDERED: fentaNYL PF VIAL 100 MCG/2 ML VIAL IV PRN (14:30)
[2020-02-12] MEDS ORDERED: ACETAMINOPHEN 325 MG TABLET. PO PRN (14:30)
[2020-02-12] MEDS ORDERED: ONDANSETRON PF 4 MG/2 ML VIAL. IV PRN (14:30)
[2020-02-12] MEDS ORDERED: DEXTROSE 50% 25 GM / 50ML DISP.SYRIN. IV PRN (14:30)
[2020-02-12 16:30] VITALS: BP 138/66
[2020-02-12] MEDS: INSULIN LISPRO 300 UNITS/3 ML VIAL. SQ SCH (17:00)
[2020-02-12 19:00] VITALS: BP 157/70
[2020-02-12] MEDS ORDERED: INSU100I13 SQ (19:58)
[2020-02-12 23:00] VITALS: BP 144/67
[2020-02-13] VITALS (7 sets, daily range): BP systolic 132–175; BP diastolic 60–79
[2020-02-13] MEDS: INSULIN LISPRO 300 UNITS/3 ML VIAL. SQ SCH ×3 (08:00→17:00)
--- NOTE | 2020-02-13 14:55 | NUR ---
SW following. KARLA reviewed chart and spoke with RN. Pt resides in LTC at [facility], , (fax) and plans to return to SNU when stable. KARLA spoke with Tiago from [facility] and pt's insurance does not require 3 overnights for SNU. Pt on 4l 02 and COVID results are pending. SW reviewed humerus and forearm x-ray and there are no fractures. PT/OT to evaluate this pt. SW to continue following.
[2020-02-13] MEDS: hydrALAZINE 25 MG TABLET PO SCH ×2 (16:10→21:55)
[2020-02-13] MEDS: METOPROLOL TART IMMED RELEASE 25 MG TABLET. PO SCH ×2 (16:10→21:57)
[2020-02-13] MEDS: VALPROIC ACID (AS SODIUM SALT) 250 MG in IV DEXTROSE 5% 50 ML IV SCH ×4 (17:00→23:00)
--- NOTE | 2020-02-13 19:07 | PDOC1 ---
History and Physical Date of Admission: Date of Admission DATE: 02/13/20 TIME: 18:53 Chief Complaint: Problems: (1) Falls frequently (2) Bipolar 1 disorder (3) Dementia (4) Anemia (5) Fall at assisted (6) Diabetes Chief Complain: fall from standing History of Present Illness: HPI: Patient is a 69-year-old female with past medical history of diabetes, hypertension, history of stroke, bipolar disorder. Comes to the ED after an unwitnessed fall at [facility] this morning at 745. Patient was found on the floor face down to her room and nurse states that she was able to walk back to her bed the patient was able to ambulate at this time. On arrival patient's O2 saturation on room air was 88% she was placed on nasal cannula 2 L and she was satting at 90%. Patient seen at bedside this morning and she is alert and awake and oriented x1. She is somewhat agitated on upon questioning Allergies: Allergies: Coded Allergies: No Known Drug Allergies (Unverified , 07/04/14) Family History: Family History: None Social History: Social History: Smoking Status: Former Smoker Alcohol Use: None Drug Use: None Current Medications: Current Medications Current Medications Sodium Chloride 1,000 ml @ 1,000 mls/hr 1X ONCE IV Last administered on 02/12/20at 09:30; Start 02/12/20 at 09:30; Stop 02/12/20 at 10:29; Status DC Ondansetron HCl (Zofran) 4 mg 1X ONCE IVP Last administered on 02/12/20at 10:24; Start 02/12/20 at 10:15; Stop 02/12/20 at 10:16; Status DC Dexamethasone Sodium Phosphate (Decadron) 10 mg 1X ONCE IVP Last administered on 02/12/20at 10:25; Start 02/12/20 at 10:15; Stop 02/12/20 at 10:16; Status DC Piperacillin Sod/ Tazobactam Sod 4.5 gm/Sodium Chloride 100 ml @ 200 mls/hr 1X ONCE IV Last administered on 02/12/20at 11:11; Start 02/12/20 at 10:15; Stop 02/12/20 at 10:44; Status DC Fentanyl Citrate (Fentanyl 2ml Vial) 50 mcg 1X ONCE IV Last administered on 02/12/20at 11:20; Start 02/12/20 at 11:15; Stop 02/12/20 at 11:17; Status DC Sodium Chloride 1,000 ml @ 1,000 mls/hr 1X ONCE IV Last administered on 02/12/20at 12:38; Start 02/12/20 at 12:00; Stop 02/12/20 at 12:59; Status DC Sodium Chloride 500 ml @ 500 mls/hr 1X ONCE IV Last administered on 02/12/20at 12:00; Start 02/12/20 at 12:00; Stop 02/12/20 at 12:59; Status DC Ondansetron HCl (Zofran) 4 mg PRN Q8HRS PRN IV NAUSEA/VOMITING; Start 02/12/20 at 14:30; Stop 02/13/20 at 14:29; Status DC Fentanyl Citrate (Fentanyl 2ml Vial) 25 mcg PRN Q2HRS PRN IV PAIN; Start 02/12/20 at 14:30 Acetaminophen (Tylenol) 650 mg PRN Q4HRS PRN PO FEVER > 100.3'F; Start 02/12/20 at 14:30; Stop 02/13/20 at 14:29; Status DC Insulin Human Lispro (HumaLOG) 0-5 UNITS TIDWMEALS SQ Last administered on 02/13/20at 12:32; Start 02/12/20 at 17:00 Dextrose (Dextrose 50%-Water Syringe) 12.5 gm PRN Q15MIN PRN IV SEE COMMENTS; Start 02/12/20 at 14:30 Atorvastatin Calcium (Lipitor) 20 mg HS PO ; Start 02/13/20 at 21:00 Divalproex Sodium (Depakote Er) 750 mg QHS PO ; Start 02/13/20 at 21:00; Stop 02/13/20 at 16:44; Status DC Hydralazine HCl (Apresoline) 25 mg BID PO Last administered on 02/13/20at 16:10; Start 02/13/20 at 15:30 Metoprolol Tartrate (Lopressor) 25 mg BID PO Last administered on 02/13/20at 16:10; Start 02/13/20 at 15:30 Nystatin (Nystop) 1 misbah BID TP ; Start 02/13/20 at 21:00 Valproic Acid 250 mg/Dextrose 52.5 ml @ 52.5 mls/hr Q8HRS IV ; Start 02/13/20 at 17:00 Active Scripts Active Reported Lantus Solostar (Insulin Glargine,Hum.rec.anlog) 100 Unit/1 Ml Insuln.pen 34 Unit SQ QHS Nystatin 15 Gm Powder 15 Gm TP BID Zyrtec (Cetirizine Hcl) 10 Mg Tablet 10 Mg PO DAILY Metoprolol Tartrate 25 Mg Tablet 25 Mg PO BID Lipitor (Atorvastatin Calcium) 20 Mg Tablet 20 Mg PO HS Hydralazine Hcl 25 Mg Tablet 25 Mg PO BID Depakote Er (Divalproex Sodium) 250 Mg Tab.er.24h 750 Mg PO QHS Celexa (Citalopram Hydrobromide) 20 Mg Tablet 20 Mg PO DAILY Bumetanide 2 Mg Tablet 2 Mg PO DAILY Novolog Flexpen (Insulin Aspart) 100 Unit/1 Ml Insuln.pen 16 Unit SQ TIDWMEALS ROS: Review of Systems Review of System Unable to obtain due to confusion Physical Exam: Vital Signs: Vital Signs Date Time Temp Pulse Resp B/P (MAP) Pulse Ox O2 Delivery O2 Flow Rate FiO2 02/13/20 16:10 76 132/60 02/13/20 15:00 97.9 18 94 Nasal Cannula 97.9 02/13/20 08:00 3.5 Physcial Exam: GEN: No apparent distress. Alert and oriented HEENT: Normal cephalic, atraumatic, external auditory canals are patent EYES: Extraocular muscles are intact, pupil are equally round and reactive to light and accommodation MUSCULOSKELETAL: Well developed , well nourished, good range of motion ENDOCRINE: No thyromegaly was palpated LYMPHATICS: No cervical chain or axillary nodes were noted HEMATOPOIETIC: No bruising NECK: Supple, no JVD, no thyromegaly was noted LUNGS: Clear to auscultation in all lung alarcon without rhonchi or wheezing HEART: RRR, S!, S2 present. Peripheral pulses intact, no obvious murmurs noted ABDOMEN: Soft, nontender. Positive bowel sounds, no organomegaly, normal bowel sounds EXTREMITIES: Minimal bilateral edema. No signs of cellulitis pedal pulses intact. Negative Homans sign NEUROLOGIC: Normal speech and tone. A&O x 3, moves all extremities, no obvious focal deficits PSYCHIATRIC: Normal affect, normal mood. Stable SKIN: No ulcerations or rashes, good skin turgor, no jaundice VASCULAR: Good capillary refill, neurovascular bundle appears to be intact Labs: Labs: Laboratory Tests Test 02/12/20 09:50 02/12/20 10:22 02/12/20 11:08 02/12/20 11:35 Prothrombin Time 12.5 SEC (11.7-14.0) Prothromb Time International Ratio 1.0 (0.8-1.1) Activated Partial Thromboplast Time 25 SEC (24-38) D-Dimer (Katherine) 9.42 ug/mlFEU (0.00-0.50) Sodium Level 141 mmol/L (136-145) Potassium Level 3.5 mmol/L (3.5-5.1) Chloride Level 100 mmol/L (98-107) Carbon Dioxide Level 27 mmol/L (21-32) Anion Gap 14 (6-14) Blood Urea Nitrogen 34 mg/dL (7-20) Creatinine 1.8 mg/dL (0.6-1.0) Estimated GFR (Cockcroft-Gault) 27.9 BUN/Creatinine Ratio 19 (6-20) Glucose Level 242 mg/dL (70-99) Lactic Acid Level 3.6 mmol/L (0.4-2.0) Calcium Level 9.5 mg/dL (8.5-10.1) Magnesium Level 2.3 mg/dL (1.8-2.4) Total Bilirubin 0.2 mg/dL (0.2-1.0) Aspartate Amino Transf (AST/SGOT) 30 U/L (15-37) Alanine Aminotransferase (ALT/SGPT) 29 U/L (14-59) Alkaline Phosphatase 98 U/L (46-116) Creatine Kinase 109 U/L (26-192) Creatine Kinase MB (Mass) 0.9 ng/mL (0.0-3.6) Creatine Kinase MB Relative Index 0.8 % (0-4) Troponin I Quantitative < 0.017 ng/mL (0.000-0.055) VD-Fdd-R-Type Natriuretic Peptide 362 pg/mL (0-124) Total Protein 7.5 g/dL (6.4-8.2) Albumin 2.8 g/dL (3.4-5.0) Albumin/Globulin Ratio 0.6 (1.0-1.7) Valproic Acid (Depakene) Level 47 mcg/mL (50-100) Valproic Acid Last Dose Date Unknown Valproic Acid Last Dose Time Unknown White Blood Count 13.4 x10^3/uL (4.0-11.0) Red Blood Count 4.19 x10^6/uL (3.50-5.40) Hemoglobin 10.8 g/dL (12.0-15.5) Hematocrit 33.7 % (36.0-47.0) Mean Corpuscular Volume 80 fL (79-100) Mean Corpuscular Hemoglobin 26 pg (25-35) Mean Corpuscular Hemoglobin Concent 32 g/dL (31-37) Red Cell Distribution Width 17.4 % (11.5-14.5) Platelet Count 365 x10^3/uL (140-400) Neutrophils (%) (Auto) 87 % (31-73) Lymphocytes (%) (Auto) 7 % (24-48) Monocytes (%) (Auto) 6 % (0-9) Eosinophils (%) (Auto) 0 % (0-3) Basophils (%) (Auto) 1 % (0-3) Neutrophils # (Auto) 11.6 x10^3/uL (1.8-7.7) Lymphocytes # (Auto) 0.9 x10^3/uL (1.0-4.8) Monocytes # (Auto) 0.8 x10^3/uL (0.0-1.1) Eosinophils # (Auto) 0.0 x10^3/uL (0.0-0.7) Basophils # (Auto) 0.1 x10^3/uL (0.0-0.2) Segmented Neutrophils % 87 % (35-66) Lymphocytes % 7 % (24-48) Monocytes % 4 % (0-10) Basophils % 2 % (0-3) Platelet Estimate Adequate (ADEQUATE) Large Platelets Few Anisocytosis Slight Urine Collection Type U cath Urine Color Yellow Urine Clarity Clear Urine pH 5.5 (<5.0-8.0) Urine Specific [place] 1.020 (1.000-1.030) Urine Protein Negative mg/dL (NEG-TRACE) Urine Glucose (UA) Negative mg/dL (NEG) Urine Ketones (Stick) Negative mg/dL (NEG) Urine Blood Negative (NEG) Urine Nitrite Negative (NEG) Urine Bilirubin Negative (NEG) Urine Urobilinogen Dipstick 0.2 mg/dL (0.2 mg/dL) Urine Leukocyte Esterase Negative (NEG) Urine RBC Occ /HPF (0-2) Urine WBC 1-4 /HPF (0-4) Urine Squamous Epithelial Cells Few /LPF Urine Amorphous Sediment Present /HPF Urine Bacteria 0 /HPF (0-FEW) Urine Hyaline Casts Occasional /HPF Urine Mucus Slight /LPF Test 02/12/20 13:40 02/12/20 18:00 02/12/20 19:14 02/12/20 20:35 Lactic Acid Level 3.3 mmol/L (0.4-2.0) Troponin I Quantitative < 0.017 ng/mL (0.000-0.055) < 0.017 ng/mL (0.000-0.055) Glucose (Fingerstick) 170 mg/dL (70-99) Test 02/12/20 21:34 02/13/20 08:35 02/13/20 10:32 02/13/20 17:10 Glucose (Fingerstick) 155 mg/dL (70-99) 126 mg/dL (70-99) 173 mg/dL (70-99) 153 mg/dL (70-99) Laboratory Tests Test 02/12/20 19:14 02/12/20 20:35 02/12/20 21:34 02/13/20 08:35 Glucose (Fingerstick) 170 mg/dL (70-99) 155 mg/dL (70-99) 126 mg/dL (70-99) Troponin I Quantitative < 0.017 ng/mL (0.000-0.055) Test 02/13/20 10:32 02/13/20 17:10 Glucose (Fingerstick) 173 mg/dL (70-99) 153 mg/dL (70-99) Assessment/Plan Assessment/Plan Patient admitted for fall Hold all centrally acting medications Orthostatic vital signs PT OT evaluation Resume home meds except for bumetanide that is treating her edema. This may be the cause of her fall. Unknown loss of consciousness Justicifation of Admission Dx: Justifications for Admission: Justification of Admission Dx: N/A ELINOR VALENZUELA MD Feb 13, 2020 19:07
[2020-02-13] MEDS ORDERED: DIVALPROEX EXTENDED RELEASE 250 MG TAB.ER.24H. PO SCH (21:00)
--- NOTE | 2020-02-13 21:34 | RAD ---
Exam: Bilateral lower extremity venous duplex study INDICATION: Leg swelling TECHNIQUE: Using a combination of real-time ultrasound imaging and color-flow and pulse Doppler imaging techniques along with graded compression and augmentation, duplex evaluation of the deep venous systems of bilateral lower extremity was performed. Multiple images were obtained. Findings: There is no sonographic evidence for deep venous thrombosis involving the visualized deep venous structures of the left lower extremity. Occlusive thrombus is noted within the right superficial femoral vein and popliteal vein which extends to the common femoral vein where it is partially occlusive. IMPRESSION: 1. Occlusive thrombus in the right superficial femoral vein and popliteal vein 2. No acute DVT in the left lower extremities. Electronically signed by: Yvonne Molina MD (02/13/2020 9:31 PM) [id number]
[2020-02-13] MEDS: ATORVASTATIN CALCIUM 20 MG TABLET PO SCH (21:56)
[2020-02-13] MEDS: NYSTATIN TOPICAL POWDER 15GM BOTTLE. TP SCH (21:57)
[2020-02-14] MEDS: ENOXAPARIN 40 MG/0.4 ML SYRINGE. SQ SCH ×2 (00:21→10:09)
[2020-02-14] MEDS: VALPROIC ACID (AS SODIUM SALT) 250 MG in IV DEXTROSE 5% 50 ML IV SCH ×3 (06:00→21:12)
[2020-02-14 07:20] VITALS: BP 145/64
--- NOTE | 2020-02-14 07:55 | EKG ---
[facility] [address] [place] [address] Test Date: 2020-02-12 Test Time: 09:41:26 Pat Name: CRISTHIAN MATHEWS Department: Room: Gender: F [employer]: : 1950 Requested By: ALEM LINDSAY Order Number: [id number] Reading MD: Measurements Intervals Victor Rate: 68 P: 52 SC: 174 QRS: 6 QRSD: 90 T: 39 QT: 502 QTc: 534 Interpretive Statements SINUS RHYTHM QRS(T) CONTOUR ABNORMALITY CONSISTENT WITH ANTEROSEPTAL INFARCT AGE UNDETERMINED ABNORMAL ECG RI6.01 No previous ECG available for comparison
[2020-02-14] MEDS: INSULIN LISPRO 300 UNITS/3 ML VIAL. SQ SCH ×3 (08:00→17:00)
[2020-02-14 08:41] LABS: BASO % 0 % (0-3); EOS # 0.1 x10^3/uL (0.0-0.7); EOS % 1 % (0-3); HEMATOCRIT 30.8 % (36.0-47.0); HEMOGLOBIN 9.7 g/dL (12.0-15.5); LYMPH # 3.8 x10^3/uL (1.0-4.8); LYMPH % 33 % (24-48); MEAN CORPUSCULAR HEMOGLOBIN 26 pg (25-35); MEAN CORPUSCULAR HGB CONC 32 g/dL (31-37); MEAN CORPUSCULAR VOLUME 82 fL (79-100); MONO % 9 % (0-9); NEUT # 6.8 x10^3/uL (1.8-7.7); NEUT % 58 % (31-73); PLATELET COUNT 370 x10^3/uL (140-400); RED BLOOD COUNT 3.75 x10^6/uL (3.50-5.40); RED CELL DISTRIBUTION WIDTH 18.1 % (11.5-14.5); WHITE BLOOD COUNT 11.7 x10^3/uL (4.0-11.0)
[2020-02-14] MEDS: METOPROLOL TART IMMED RELEASE 25 MG TABLET. PO SCH ×3 (09:00→21:11)
[2020-02-14] MEDS: hydrALAZINE 25 MG TABLET PO SCH ×3 (09:00→21:11)
[2020-02-14 10:18] LABS: CALCIUM 9.7 mg/dL (8.5-10.1); CREATININE 1.4 mg/dL (0.6-1.0); GFR 37.3; MAGNESIUM 2.9 mg/dL (1.8-2.4); PHOSPHORUS 2.5 mg/dL (2.6-4.7); POTASSIUM 4.3 mmol/L (3.5-5.1)
[2020-02-14] MEDS: NYSTATIN TOPICAL POWDER 15GM BOTTLE. TP SCH ×2 (10:23→21:00)
[2020-02-14 11:05] VITALS: BP 159/65
--- NOTE | 2020-02-14 14:44 | NUR ---
SW following. Reviewed chart and spoke with RN and CM. Spoke with Dr. Campos who stated he does not want to discharge pt today as he wants to consult hematology. KARLA spoke with Tiago from [facility] to update. Pt to discharge SNU to [facility], , (fax) when stable. SW to continue following.
[2020-02-14 15:04] VITALS: BP 140/67
--- NOTE | 2020-02-14 16:12 | PDOC2 ---
CONSULT Date of Consult Date of Consult DATE: 02/14/20 TIME: 16:11 Reason for Consult Reason for Consult: DVT, history of stroke and ? DVT Referring Physician Referring Physician: Gene Campos MD Identification/Chief Complaint Chief Complaint DVT Problems: (1) Deep vein thrombosis (DVT) of right lower extremity Source Source: Chart review, Patient History of Present Illness Reason for Visit: Tina Magana is 69-year-old female with history of bipolar disorder, CVA and frequent falls who has been admitted to the hospital after being found down at snf. She has been admitted for further evaluation. She received additional radiologic testing which did not show fractures. She also received ultrasound Doppler of both lower extremities due to lower extremity edema. This showed an occlusive thrombus in the right superficial femoral vein and popliteal vein. She reports no prior history of thrombosis. Hematology consultation was requested due to report of prior blood clots by her daughter. I spoke with her daughter Lindsay (phone #[phone]) who resides in [place] who stated that the patient had a prior stroke which was attributed to a patent foramen ovale. No record of deep venous thrombosis was noted at that time. The patient was not on anticoagulation at the time. Both the patient and the daughter report that she is had several falls over the past 6 months. Patient reports at least one episode of falling per month. She reports no chest pain or shortness of breath at this time. History is limited due to the patient's unwillingness to participate. Past Medical History Cardiovascular: AFIB, HTN, Hyperlipidemia, Other Pulmonary: Other CENTRAL NERVOUS SYSTEM: CVA, Other GI: No pertinent hx Heme/Onc: No pertinent hx Hepatobiliary: No pertinent hx Psych: Bipolar, Schizophrenia Musculoskeletal: low back pain Rheumatologic: Gout Infectious disease: No pertinent hx Renal/: Chronic renal insuff Endocrine: Diabetes Past Surgical History Past Surgical History: Appendectomy, Cholecystectomy, Hysterectomy Family History Family History: Family History Unknown Social History No ALCOHOL: none Drugs: None Lives: Alone Domestic Violence: Neg Current Problem List Problem List Problems Medical Problems: (1) Lactic acidosis Status: Acute (2) SIRS (systemic inflammatory response syndrome) Status: Acute (3) Suspected 2019 novel coronavirus infection Status: Acute (4) Weakness Status: Acute Current Medications Current Medications Current Medications Sodium Chloride 1,000 ml @ 1,000 mls/hr 1X ONCE IV Last administered on 02/12/20at 09:30; Start 02/12/20 at 09:30; Stop 02/12/20 at 10:29; Status DC Ondansetron HCl (Zofran) 4 mg 1X ONCE IVP Last administered on 02/12/20at 10:2 4; Start 02/12/20 at 10:15; Stop 02/12/20 at 10:16; Status DC Dexamethasone Sodium Phosphate (Decadron) 10 mg 1X ONCE IVP Last administered on 02/12/20at 10:25; Start 02/12/20 at 10:15; Stop 02/12/20 at 10:16; Status DC Piperacillin Sod/ Tazobactam Sod 4.5 gm/Sodium Chloride 100 ml @ 200 mls/hr 1X ONCE IV Last administered on 02/12/20at 11:11; Start 02/12/20 at 10:15; Stop 07/22 at 10:44; Status DC Fentanyl Citrate (Fentanyl 2ml Vial) 50 mcg 1X ONCE IV Last administered on 02/12/20at 11:20; Start 02/12/20 at 11:15; Stop 02/12/20 at 11:17; Status DC Sodium Chloride 1,000 ml @ 1,000 mls/hr 1X ONCE IV Last administered on 02/12/20at 12:38; Start 02/12/20 at 12:00; Stop 02/12/20 at 12:59; Status DC Sodium Chloride 500 ml @ 500 mls/hr 1X ONCE IV Last administered on 02/12/20at 12:00; Start 02/12/20 at 12:00; Stop 02/12/20 at 12:59; Status DC Ondansetron HCl (Zofran) 4 mg PRN Q8HRS PRN IV NAUSEA/VOMITING; Start 02/12/20 at 14:30; Stop 02/13/20 at 14:29; Status DC Fentanyl Citrate (Fentanyl 2ml Vial) 25 mcg PRN Q2HRS PRN IV PAIN; Start 02/12/20 at 14:30 Acetaminophen (Tylenol) 650 mg PRN Q4HRS PRN PO FEVER > 100.3'F; Start 02/12/20 at 14:30; Stop 02/13/20 at 14:29; Status DC Insulin Human Lispro (HumaLOG) 0-5 UNITS TIDWMEALS SQ Last administered on 02/13/20at 12:32; Start 02/12/20 at 17:00 Dextrose (Dextrose 50%-Water Syringe) 12.5 gm PRN Q15MIN PRN IV SEE COMMENTS; Start 02/12/20 at 14:30 Atorvastatin Calcium (Lipitor) 20 mg HS PO Last administered on 02/13/20at 21:56; Start 02/13/20 at 21:00 Divalproex Sodium (Depakote Er) 750 mg QHS PO ; Start 02/13/20 at 21:00; Stop 02/13/20 at 16:44; Status DC Hydralazine HCl (Apresoline) 25 mg BID PO Last administered on 02/13/20at 21:55; Start 02/13/20 at 15:30 Metoprolol Tartrate (Lopressor) 25 mg BID PO Last administered on 02/13/20at 21:57; Start 02/13/20 at 15:30 Nystatin (Nystop) 1 misbah BID TP Last administered on 02/14/20at 10:23; Start 02/13/20 at 21:00 Valproic Acid 250 mg/Dextrose 52.5 ml @ 52.5 mls/hr Q8HRS IV Last administered on 02/14/20at 15:50; Start 02/13/20 at 17:00 Enoxaparin Sodium (Lovenox 40mg Syringe) 40 mg Q12HR SQ Last administered on 02/14/20at 10:09; Start 02/13/20 at 23:30; Stop 02/14/20 at 13:38; Status DC Enoxaparin Sodium (Lovenox 80mg Syringe) 80 mg Q12HR SQ ; Start 02/14/20 at 21:00 Active Scripts Active Reported Lantus Solostar (Insulin Glargine,Hum.rec.anlog) 100 Unit/1 Ml Insuln.pen 34 Unit SQ QHS Nystatin 15 Gm Powder 15 Gm TP BID Zyrtec (Cetirizine Hcl) 10 Mg Tablet 10 Mg PO DAILY Metoprolol Tartrate 25 Mg Tablet 25 Mg PO BID Lipitor (Atorvastatin Calcium) 20 Mg Tablet 20 Mg PO HS Hydralazine Hcl 25 Mg Tablet 25 Mg PO BID Depakote Er (Divalproex Sodium) 250 Mg Tab.er.24h 750 Mg PO QHS Celexa (Citalopram Hydrobromide) 20 Mg Tablet 20 Mg PO DAILY Bumetanide 2 Mg Tablet 2 Mg PO DAILY Novolog Flexpen (Insulin Aspart) 100 Unit/1 Ml Insuln.pen 16 Unit SQ TIDWMEALS Allergies Allergies: Coded Allergies: No Known Drug Allergies (Unverified , 07/04/14) ROS PSYCHOLOGICAL ROS: YES: Mood Swings HEENT: No: Heacaches Hematological and Lymphatic: YES: Blood Clots; No: Bleeding Problems, Brusing, Swollen Lymph Nodes Respiratory: No: Cough, Pleuritic Pain, Shortness of breath Cardiovascular: yes Edema; No Chest Pain Gastrointestinal: No Nausea, No Vomiting, No Abdominal Pain, No Melena, No Hematochezia Genitourinary: No Dysuria Skin: No Dry Skin Physical Exam General: Alert, Oriented X3, No acute distress HEENT: Atraumatic Lungs: Clear to auscultation Heart: Regular rate, No murmurs Abdomen: Normal bowel sounds, Soft, No tenderness Extremities: Other (Bilateral lower extremity pitting edema noted.) Skin: No rashes Neuro: Other (Unable to complete neurologic exam. Patient was in bed.) Psych/Mental Status: Mental status NL MUSCULOSKELETAL: No joint tenderness Vitals VITALS Vital Signs Date Time Temp Pulse Resp B/P (MAP) Pulse Ox O2 Delivery O2 Flow Rate FiO2 02/14/20 15:04 97.3 62 18 140/67 (91) 94 Nasal Cannula 2.0 97.3 Labs Labs Laboratory Tests Test 02/12/20 18:00 02/12/20 19:14 02/12/20 20:35 02/12/20 21:34 Troponin I Quantitative < 0.017 ng/mL (0.000-0.055) < 0.017 ng/mL (0.000-0.055) Glucose (Fingerstick) 170 mg/dL (70-99) 155 mg/dL (70-99) Test 02/13/20 08:35 02/13/20 10:32 02/13/20 17:10 02/13/20 22:03 Glucose (Fingerstick) 126 mg/dL (70-99) 173 mg/dL (70-99) 153 mg/dL (70-99) 143 mg/dL (70-99) Test 02/14/20 03:43 02/14/20 07:28 02/14/20 11:00 02/14/20 16:03 White Blood Count 11.7 x10^3/uL (4.0-11.0) Red Blood Count 3.75 x10^6/uL (3.50-5.40) Hemoglobin 9.7 g/dL (12.0-15.5) Hematocrit 30.8 % (36.0-47.0) Mean Corpuscular Volume 82 fL (79-100) Mean Corpuscular Hemoglobin 26 pg (25-35) Mean Corpuscular Hemoglobin Concent 32 g/dL (31-37) Red Cell Distribution Width 18.1 % (11.5-14.5) Platelet Count 370 x10^3/uL (140-400) Neutrophils (%) (Auto) 58 % (31-73) Lymphocytes (%) (Auto) 33 % (24-48) Monocytes (%) (Auto) 9 % (0-9) Eosinophils (%) (Auto) 1 % (0-3) Basophils (%) (Auto) 0 % (0-3) Neutrophils # (Auto) 6.8 x10^3/uL (1.8-7.7) Lymphocytes # (Auto) 3.8 x10^3/uL (1.0-4.8) Monocytes # (Auto) 1.0 x10^3/uL (0.0-1.1) Eosinophils # (Auto) 0.1 x10^3/uL (0.0-0.7) Basophils # (Auto) 0.0 x10^3/uL (0.0-0.2) Sodium Level 147 mmol/L (136-145) Potassium Level 4.3 mmol/L (3.5-5.1) Chloride Level 108 mmol/L (98-107) Carbon Dioxide Level 25 mmol/L (21-32) Anion Gap 14 (6-14) Blood Urea Nitrogen 29 mg/dL (7-20) Creatinine 1.4 mg/dL (0.6-1.0) Estimated GFR (Cockcroft-Gault) 37.3 Glucose Level 132 mg/dL (70-99) Calcium Level 9.7 mg/dL (8.5-10.1) Phosphorus Level 2.5 mg/dL (2.6-4.7) Magnesium Level 2.9 mg/dL (1.8-2.4) Glucose (Fingerstick) 145 mg/dL (70-99) 139 mg/dL (70-99) 129 mg/dL (70-99) Laboratory Tests Test 02/13/20 17:10 02/13/20 22:03 02/14/20 03:43 02/14/20 07:28 Glucose (Fingerstick) 153 mg/dL (70-99) 143 mg/dL (70-99) 145 mg/dL (70-99) White Blood Count 11.7 x10^3/uL (4.0-11.0) Red Blood Count 3.75 x10^6/uL (3.50-5.40) Hemoglobin 9.7 g/dL (12.0-15.5) Hematocrit 30.8 % (36.0-47.0) Mean Corpuscular Volume 82 fL (79-100) Mean Corpuscular Hemoglobin 26 pg (25-35) Mean Corpuscular Hemoglobin Concent 32 g/dL (31-37) Red Cell Distribution Width 18.1 % (11.5-14.5) Platelet Count 370 x10^3/uL (140-400) Neutrophils (%) (Auto) 58 % (31-73) Lymphocytes (%) (Auto) 33 % (24-48) Monocytes (%) (Auto) 9 % (0-9) Eosinophils (%) (Auto) 1 % (0-3) Basophils (%) (Auto) 0 % (0-3) Neutrophils # (Auto) 6.8 x10^3/uL (1.8-7.7) Lymphocytes # (Auto) 3.8 x10^3/uL (1.0-4.8) Monocytes # (Auto) 1.0 x10^3/uL (0.0-1.1) Eosinophils # (Auto) 0.1 x10^3/uL (0.0-0.7) Basophils # (Auto) 0.0 x10^3/uL (0.0-0.2) Sodium Level 147 mmol/L (136-145) Potassium Level 4.3 mmol/L (3.5-5.1) Chloride Level 108 mmol/L (98-107) Carbon Dioxide Level 25 mmol/L (21-32) Anion Gap 14 (6-14) Blood Urea Nitrogen 29 mg/dL (7-20) Creatinine 1.4 mg/dL (0.6-1.0) Estimated GFR (Cockcroft-Gault) 37.3 Glucose Level 132 mg/dL (70-99) Calcium Level 9.7 mg/dL (8.5-10.1) Phosphorus Level 2.5 mg/dL (2.6-4.7) Magnesium Level 2.9 mg/dL (1.8-2.4) Test 02/14/20 11:00 02/14/20 16:03 Glucose (Fingerstick) 139 mg/dL (70-99) 129 mg/dL (70-99) Images Images Ultrasound Doppler both lower extremities: IMPRESSION: 1. Occlusive thrombus in the right superficial femoral vein and popliteal vein 2. No acute DVT in the left lower extremities. Assessment/Plan Assessment/Plan Tina Gutiérrez is a 69-year-old female with history of CVA and bipolar disorder who is been admitted after a fall and found to have a new right lower extremity DVT. Assessment: Acute right lower extremity deep venous thrombosis History of stroke with residual gait impairment Frequent falls Bipolar disorder Debility Obesity Recommendation: - Given the patient's immobility secondary to her history of stroke, I would consider her episode of deep venous thrombosis provoked due to immobility. - I discussed with the patient that the management of a provoked DVT typically constitutes a finite duration (3 to 6 months) of therapeutic anticoagulation. - In discussion with her daughter, as well as review of records, it appears that she has not had a prior episode of DVT. - I discussed with the patient the benefits and potential risks of therapeutic anticoagulation including the risk for life-threatening bleeding. Given her frequent falls including immediately preceding this hospitalization, she would be at high risk for bleeding complications secondary to fall if she were to be anticoagulated. I counseled the patient and her daughter that the potential risks from therapeutic anticoagulation with therefore outweigh any potential benefits. - Can consider IVC filter placement vs reconsidering anticoagulation at outpatient follow-up if she remains free from falling at that time Thank you for the consult Beni Gonzales MD Medical Oncology/Hematology Ph: [phone] TERENCE GONZALES MD Feb 14, 2020 16:12
--- NOTE | 2020-02-14 16:38 | PDOC ---
[facility] PROGRESS NOTE Chief Complaint Chief Complaint Fall History of Present Illness History of Present Illness 69-year-old female with past medical history of diabetes, hypertension, history of stroke, bipolar disorder. Comes to the ED after an unwitnessed fall at [facility] this morning at 745. Patient was found on the floor face down to her room and nurse states that she was able to walk back to her bed the patient was able to ambulate at this time. On arrival patient's O2 saturation on room air was 88% she was placed on nasal cannula 2 L and she was satting at 90% 02/14/2020 Patient seen and examined bedside today patient is actually sitting on a recliner and responding appropriately. Patient appears to still have cognitive impairment, but not as agitated as yesterday. Patient has been working with physical therapy on transfers and has been doing well. There was a late finding last night done on ultrasound after patient was found to be COVID negative and the superficial femoral vein found to have occlusive thrombus. Vitals/I&O Vitals/I&O: Vital Signs Date Time Temp Pulse Resp B/P (MAP) Pulse Ox O2 Delivery O2 Flow Rate FiO2 02/14/20 15:04 97.3 62 18 140/67 (91) 94 Nasal Cannula 2.0 97.3 I & O 02/13/20 02/13/20 02/14/20 15:00 23:00 07:00 Intake Total 120 ml Balance 120 ml Physical Exam Physical Exam: GENERAL: Patient is alert and awake. NAD HEENT: Moist mucous membranes. No scleral icterus or obvious cervical lymphadenopathy CV: RRR. No murmurs rubs or gallops. Unable to appreciate S3 or S4 PULM: Bilaterally clear to auscultation. Chest expanding equally bilaterally without use of accessory muscles. ABD: Soft and nondistended on visualization and palpation. Normoactive bowel sounds heard. EXTREMITIES: No pedal edema seen. No warmth or tenderness upon touch. NEURO: Full ROM in all extremities. normal strength on upper extremities. General: Alert, Oriented X3, No acute distress Heart: Regular rate, No murmurs Lungs: Clear Abdomen: Normal bowel sounds, Soft, No tenderness Extremities: Other (Bilateral lower extremity pitting edema noted.) Skin: No rashes Labs Labs: Laboratory Tests Test 02/13/20 17:10 02/13/20 22:03 02/14/20 03:43 02/14/20 07:28 Glucose (Fingerstick) 153 mg/dL (70-99) 143 mg/dL (70-99) 145 mg/dL (70-99) White Blood Count 11.7 x10^3/uL (4.0-11.0) Red Blood Count 3.75 x10^6/uL (3.50-5.40) Hemoglobin 9.7 g/dL (12.0-15.5) Hematocrit 30.8 % (36.0-47.0) Mean Corpuscular Volume 82 fL (79-100) Mean Corpuscular Hemoglobin 26 pg (25-35) Mean Corpuscular Hemoglobin Concent 32 g/dL (31-37) Red Cell Distribution Width 18.1 % (11.5-14.5) Platelet Count 370 x10^3/uL (140-400) Neutrophils (%) (Auto) 58 % (31-73) Lymphocytes (%) (Auto) 33 % (24-48) Monocytes (%) (Auto) 9 % (0-9) Eosinophils (%) (Auto) 1 % (0-3) Basophils (%) (Auto) 0 % (0-3) Neutrophils # (Auto) 6.8 x10^3/uL (1.8-7.7) Lymphocytes # (Auto) 3.8 x10^3/uL (1.0-4.8) Monocytes # (Auto) 1.0 x10^3/uL (0.0-1.1) Eosinophils # (Auto) 0.1 x10^3/uL (0.0-0.7) Basophils # (Auto) 0.0 x10^3/uL (0.0-0.2) Sodium Level 147 mmol/L (136-145) Potassium Level 4.3 mmol/L (3.5-5.1) Chloride Level 108 mmol/L (98-107) Carbon Dioxide Level 25 mmol/L (21-32) Anion Gap 14 (6-14) Blood Urea Nitrogen 29 mg/dL (7-20) Creatinine 1.4 mg/dL (0.6-1.0) Estimated GFR (Cockcroft-Gault) 37.3 Glucose Level 132 mg/dL (70-99) Calcium Level 9.7 mg/dL (8.5-10.1) Phosphorus Level 2.5 mg/dL (2.6-4.7) Magnesium Level 2.9 mg/dL (1.8-2.4) Test 02/14/20 11:00 02/14/20 16:03 Glucose (Fingerstick) 139 mg/dL (70-99) 129 mg/dL (70-99) Review of Systems Review of Systems: CONSTITUIONAL: Denies weight loss, fever and chills. HEENT: Denies changes in vision and hearing. RESPIRATORY: Denies SOB and cough. CV: Denies palpitations and CP. GI: Denies abdominal pain, nausea, vomiting and diarrhea. : Denies dysuria and urinary frequency. MSK: Denies myalgia and joint pain. SKIN: Denies rash and pruritus. NEUROLOGICAL: Denies headache and syncope. PSYCHIATRIC: Denies recent changes in mood. Denies anxiety and depression. Assessment and Plan Assessmemt and Plan Multiple falls Acute hypoxic respiratory failure Acute electrolyte derangements Acute renal failureATN Acute right DVT PT OT Orthostatic vital signs per protocol Continue IV fluids Avoid nephrotoxic agents Pending hematology evaluation Continue full dose Lovenox Patient will be discharged to SNF when ready Comment Review of Relevant I have reviewed the following items venita (where applicable) has been applied. Medications: Current Medications Medications (Trade) Dose Ordered Sig/Glory Route PRN Reason Start Time Stop Time Status Last Admin Dose Admin Atorvastatin Calcium (Lipitor) 20 mg HS PO 02/13/20 21:00 02/13/20 21:56 Nystatin (Nystop) 1 misbah BID TP 02/13/20 21:00 02/14/20 10:23 Valproic Acid 250 mg/Dextrose 52.5 ml @ 52.5 mls/hr Q8HRS IV 02/13/20 17:00 02/14/20 15:50 Enoxaparin Sodium (Lovenox 40mg Syringe) 40 mg Q12HR SQ 02/13/20 23:30 02/14/20 13:38 DC 02/14/20 10:09 Justicifation of Admission Dx: Justifications for Admission: Justification of Admission Dx: N/A ELINOR VALENZUELA MD Feb 14, 2020 16:38
[2020-02-14 19:18] VITALS: BP 147/59
[2020-02-14] MEDS: ATORVASTATIN CALCIUM 20 MG TABLET PO SCH (21:11)
[2020-02-14 22:48] VITALS: BP 153/66
[2020-02-15 03:06] VITALS: BP 171/50
[2020-02-15 04:42] LABS: BASO # 0.1 x10^3/uL (0.0-0.2); BASO % 1 % (0-3); EOS # 0.2 x10^3/uL (0.0-0.7); EOS % 2 % (0-3); HEMATOCRIT 30.8 % (36.0-47.0); LYMPH # 4.5 x10^3/uL (1.0-4.8); LYMPH % 44 % (24-48); MEAN CORPUSCULAR HEMOGLOBIN 26 pg (25-35); MEAN CORPUSCULAR HGB CONC 33 g/dL (31-37); MEAN CORPUSCULAR VOLUME 80 fL (79-100); MONO # 0.9 x10^3/uL (0.0-1.1); MONO % 9 % (0-9); NEUT # 4.5 x10^3/uL (1.8-7.7); NEUT % 44 % (31-73); PLATELET COUNT 375 x10^3/uL (140-400); RED BLOOD COUNT 3.83 x10^6/uL (3.50-5.40); RED CELL DISTRIBUTION WIDTH 17.4 % (11.5-14.5); WHITE BLOOD COUNT 10.2 x10^3/uL (4.0-11.0)
[2020-02-15 04:59] LABS: CALCIUM 9.2 mg/dL (8.5-10.1); CREATININE 1.2 mg/dL (0.6-1.0); GFR 44.5; POTASSIUM 4.2 mmol/L (3.5-5.1)
[2020-02-15] MEDS: VALPROIC ACID (AS SODIUM SALT) 250 MG in IV DEXTROSE 5% 50 ML IV SCH (05:40)
[2020-02-15 07:29] VITALS: BP 143/72
[2020-02-15] MEDS: INSULIN LISPRO 300 UNITS/3 ML VIAL. SQ SCH ×2 (08:00→12:00)
[2020-02-15] MEDS: hydrALAZINE 25 MG TABLET PO SCH ×2 (09:00→09:16)
[2020-02-15] MEDS: METOPROLOL TART IMMED RELEASE 25 MG TABLET. PO SCH ×2 (09:00→09:16)
[2020-02-15] MEDS: NYSTATIN TOPICAL POWDER 15GM BOTTLE. TP SCH ×2 (09:00→09:16)
--- NOTE | 2020-02-15 09:20 | NUR ---
AM meds: pt refused am meds. Stated "leave me alone" when trying to sit pt's bed up to safely take meds. Pt did allow nurse to do assessment on pt. Pt is alert to self. Will continue to monitor.
[2020-02-15 11:35] VITALS: BP 127/60
[2020-02-15 15:11] VITALS: BP 136/63
--- NOTE | 2020-02-15 15:43 | SNU/HH DC ---
DISCHARGE ORDERS DISCHARGE INFORMATION: FINAL DIAGNOSIS Problems Medical Problems: (1) Lactic acidosis Status: Acute (2) SIRS (systemic inflammatory response syndrome) Status: Acute (3) Suspected 2019 novel coronavirus infection Status: Acute (4) Weakness Status: Acute CONDITION ON DISCHARGE: Guarded CODE STATUS: Code Status: DNR/DNI JAIL: SNF STAY <30 DAYS: Yes POST DISCHARGE ORDERS: ACTIVITY ORDERS: Activity as tolerated, Other, see below (Patient is at high risk for falls and will need to have assistance with ambulation with physical therapist, walker or wheelchair) WEIGHT BEARING STATUS: As tolerated DIET AFTER DISCHARGE: Cardiac WOUND/INCISION CARE: Change dressing CHECKS AFTER DISCHARGE: CHECKS AFTER DISCHARGE: Check blood press - daily, Check blood sugar, ac/hs, Check your Temp as needed, Weigh Yourself Daily TREATMENT/EQUIPMENT ORDERS: ADAPTIVE EQUIPMENT NEEDED: None Physical Therapy For: Safety Occupational Therapy For: ADL's Speech Language Pathology For: Swallow Cognition DISCHARGE MEDICATIONS: Home Meds Reported Medications Insulin Glargine,Hum.rec.anlog (LANTUS SOLOSTAR) 100 Unit/1 Ml Insuln.pen, 34 UNIT SQ QHS for DM II, #15 ML 3 Refills 02/12/20 Nystatin (NYSTATIN) 15 Gm Powder, 15 GM TP BID for Breast, groin, abdoman, MISC 10/02/19 Cetirizine Hcl (ZYRTEC) 10 Mg Tablet, 10 MG PO DAILY for allergies, TAB 10/02/19 Metoprolol Tartrate (METOPROLOL TARTRATE) 25 Mg Tablet, 25 MG PO BID for FOR HYPERTENSION, #60 TAB 0 Refills 10/02/19 Atorvastatin Calcium (LIPITOR) 20 Mg Tablet, 20 MG PO HS for FOR CHOLESTEROL, #30 TAB 0 Refills 10/02/19 Hydralazine Hcl (HYDRALAZINE HCL) 25 Mg Tablet, 25 MG PO BID for hypertension, TAB 10/02/19 Divalproex Sodium (DEPAKOTE ER) 250 Mg Tab.er.24h, 750 MG PO QHS for syncope, TAB.SR 10/02/19 Citalopram Hydrobromide (CELEXA) 20 Mg Tablet, 20 MG PO DAILY for depression, TAB 10/02/19 Bumetanide (BUMETANIDE) 2 Mg Tablet, 2 MG PO DAILY for edema, TAB 10/02/19 Insulin Aspart (NOVOLOG FLEXPEN) 100 Unit/1 Ml Insuln.pen, 16 UNIT SQ TIDWMEALS, SYR 03/13/15 Discontinued Reported Medications Amlodipine Besylate (NORVASC) 10 Mg Tablet, 10 MG PO DAILY for hypertension, TAB 10/02/19 Insulin Detemir (Levemir Flextouch) 100 Unit/1 Ml Insuln.pen, 34 UNIT SQ DAILY, SYR 03/13/15 ELINOR VALENZUELA MD Feb 15, 2020 15:43
--- NOTE | 2020-02-15 16:38 | NUR ---
SW following. Reviewed chart and spoke with RN and CM. Spoke with Dr. Campos and pt will discharge today to SNU at [facility], , (fax). SW phoned and faxed discharge orders. Pt's packet of clinicals copied and ready to be sent with pt. Pt on 3l 02 and transport was arranged by the facility for 1630. RN to call report. No further SW needs at this time.
--- NOTE | 2020-02-15 16:47 | PDOC3 ---
[facility]-Discharge Summary Date of Admission: Date of Admission: Feb 12, 2020 Date of Discharge: Date of Discharge: Feb 15, 2020 Admission Diagnosis: Admitting Diagnosis: Multiple falls Acute hypoxic respiratory failure Acute electrolyte derangements Acute renal failureATN Acute right DVT Discharge Diagnosis: Discharge Diagnosis: Multiple falls Acute hypoxic respiratory failure Acute electrolyte derangements Acute renal failureATN Acute right DVT [facility] Course: Hospital Course: 69-year-old female with past medical history of diabetes, hypertension, history of stroke, bipolar disorder. Comes to the ED after an unwitnessed fall at [facility] this morning at 745. Patient was found on the floor face down to her room and nurse states that she was able to walk back to her bed the patient was able to ambulate at this time. On arrival patient's O2 saturation on room air was 88% she was placed on nasal cannula 2 L and she was satting at 90%. Patient seen at bedside this morning and she is alert and awake and oriented x1. She is somewhat agitated on upon questioning. Patient worked with PT OT during admission and was doing well on transfers. Apparently family says that patient has had multiple falls in the past couple months. Orthostatic vit al signs were done and this was negative. Patient did not have any falls during her hospital stay at this time. She was COVID tested and was tested negative. She did undergo lower extremity ultrasound which a right lower extremity DVT was found. At this point, hematology was consulted and they recommended to remain off of anticoagulation at this time due to her high risk for falls. Consideration was discussed in great detail with the family for IVC filter placement. However, due to her comorbidities and risk for the filter itself becoming a risk for thrombosis as well, the family decided to not undergo the procedure at this time. It was recommended to the family that the patient did have a reevaluation of her thrombus at least 3 to 6 months later. And at this point they will decide whether to start her on anticoagulation. Patient was tolerating diet. Patient had no acute aggressive episodes. Rest of her hospital course was uneventful. Activity: Activity: Resume previous activity Medications: Home Meds Reported Medications Insulin Glargine,Hum.rec.anlog (LANTUS SOLOSTAR) 100 Unit/1 Ml Insuln.pen, 34 UNIT SQ QHS for DM II, #15 ML 3 Refills 02/12/20 Nystatin (NYSTATIN) 15 Gm Powder, 15 GM TP BID for Breast, groin, abdoman, MISC 10/02/19 Metoprolol Tartrate (METOPROLOL TARTRATE) 25 Mg Tablet, 25 MG PO BID for FOR HYPERTENSION, #60 TAB 0 Refills 10/02/19 Atorvastatin Calcium (LIPITOR) 20 Mg Tablet, 20 MG PO HS for FOR CHOLESTEROL, #30 TAB 0 Refills 10/02/19 Divalproex Sodium (DEPAKOTE ER) 250 Mg Tab.er.24h, 750 MG PO QHS for syncope, TAB.SR 10/02/19 Citalopram Hydrobromide (CELEXA) 20 Mg Tablet, 20 MG PO DAILY for depression, TAB 10/02/19 Insulin Aspart (NOVOLOG FLEXPEN) 100 Unit/1 Ml Insuln.pen, 16 UNIT SQ TIDWMEALS, SYR 03/13/15 Discontinued Reported Medications Cetirizine Hcl (ZYRTEC) 10 Mg Tablet, 10 MG PO DAILY for allergies, TAB 10/02/19 Hydralazine Hcl (HYDRALAZINE HCL) 25 Mg Tablet, 25 MG PO BID for hypertension, TAB 10/02/19 Bumetanide (BUMETANIDE) 2 Mg Tablet, 2 MG PO DAILY for edema, TAB 10/02/19 Amlodipine Besylate (NORVASC) 10 Mg Tablet, 10 MG PO DAILY for hypertension, TAB 10/02/19 Insulin Detemir (Levemir Flextouch) 100 Unit/1 Ml Insuln.pen, 34 UNIT SQ DAILY, SYR 03/13/15 Scheduled Atorvastatin Calcium (Lipitor), 20 MG PO HS, (Reported) Citalopram Hydrobromide (Celexa), 20 MG PO DAILY, (Reported) Divalproex Sodium (Depakote Er), 750 MG PO QHS, (Reported) Insulin Aspart (Novolog Flexpen), 16 UNIT SQ TIDWMEALS, (Reported) Insulin Glargine,Hum.rec.anlog (Lantus Solostar), 34 UNIT SQ QHS, (Reported) Metoprolol Tartrate (Metoprolol Tartrate), 25 MG PO BID, (Reported) Nystatin (Nystatin), 15 GM TP BID, (Reported) Discontinued Medications Amlodipine Besylate (Norvasc), 10 MG PO DAILY, (Reported) Bumetanide (Bumetanide), 2 MG PO DAILY, (Reported) Cetirizine Hcl (Zyrtec), 10 MG PO DAILY, (Reported) Hydralazine Hcl (Hydralazine Hcl), 25 MG PO BID, (Reported) Insulin Detemir (Levemir Flextouch), 34 UNIT SQ DAILY, (Reported) Total Time: Total Time: Total time spent greater than 35 minutes Justicifation of Admission Dx: Justifications for Admission: Justification of Admission Dx: N/A ELINOR VALENZUELA MD Feb 15, 2020 16:47
--- NOTE | 2020-02-15 16:54 | NUR ---
Discharge Note: CRISTHIAN MATHEWS [address] Discharge instructions and discharge home medications reviewed with Other facility and a copy given. All questions have been answered and understanding verbalized. The following instructions and handouts were given: patient visit report, medication information, education. Discontinued lines and drains: peripheral IV, tip intact. Patient discharged to facility with nursing services via tranportation service. Report called to GILLES Kim at [facility].
== END 2020-02-15 17:09 | DRG 299 ==
LOC: ER 09:13 → 6 SOUTH 14:25
PROVIDERS: ADMIT Preventive Medicine Public Health & General Preventive Medicine; ATTEND Preventive Medicine Public Health & General Preventive Medicine
DX: I82.411 Acute embolism and thrombosis of right femoral vein (principal); N17.0 Acute kidney failure with tubular necrosis; J96.01 Acute respiratory failure with hypoxia; E87.2 Acidosis; R65.10 Systemic inflammatory response syndrome (SIRS) of non-infectious origin without acute organ dysfunction; I82.401 Acute embolism and thrombosis of unspecified deep veins of right lower extremity; Z20.828 Contact with and (suspected) exposure to other viral communicable diseases; D64.9 Anemia, unspecified; E11.22 Type 2 diabetes mellitus with diabetic chronic kidney disease; E66.9 Obesity, unspecified; E78.5 Hyperlipidemia, unspecified; F03.90 Unspecified dementia, unspecified severity, without behavioral disturbance, psychotic disturbance, mood disturbance, and anxiety; F20.9 Schizophrenia, unspecified; F31.9 Bipolar disorder, unspecified; I12.9 Hypertensive chronic kidney disease with stage 1 through stage 4 chronic kidney disease, or unspecified chronic kidney disease; I48.91 Unspecified atrial fibrillation; N18.9 Chronic kidney disease, unspecified; R29.6 Repeated falls; W18.30XA Fall on same level, unspecified, initial encounter; Y92.129 Unspecified place in nursing home as the place of occurrence of the external cause; Z86.718 Personal history of other venous thrombosis and embolism; Z86.73 Personal history of transient ischemic attack (TIA), and cerebral infarction without residual deficits; Z87.891 Personal history of nicotine dependence; Z90.710 Acquired absence of both cervix and uterus; Z91.81 History of falling; M10.9 Gout, unspecified
CPT/HCPCS: 36415; 70450; 71045; 72125; 73060; 73090; 80048; 80053; 80164; 81001; 82553; 82962; 83605; 83735; 83880; 84100; 84484; 85007; 85025; 85379; 85610; 85730; 87040; 93005; 93970; 96361; 96365; 96375; 99291; J1100; J1650; J1815; J2405; J2543; J3010; J3490; J7030; J7040; J7060; 92610-GN; 97110-GP; 97530-GP; G0378; U0003-CS

== ENCOUNTER 2021-05-26 18:06 | Inpatient (IN) | payer OTHER, MEDICAID ==
[~2021-05-26] VITALS: Ht 157.5 cm; Wt 92.5 kg
[~2021-05-26 18:06] MED LIST changes: +ACET325T21 PO; +ALLO100T PO; +AMLO-186 PO; -AMLO5TAB10 PO; +AMOX250S20 PO; +APIX5TAB PO; +ASCO100019 PO; +ASPI-630 PO; +CHOL10004 PO; +DIVA500T4 PO; +DOCU-109 PO; +INSU100I13 SQ; +INSU100V35 SQ; +LACT1CAP19 PO; +LISI10TA16 PO; -LISI10TA2 PO; +ONDA-84 PO; +PANT40TA77 PO; +POLY10DR OS; +POLY2500 PO; +POTA-121 PO; +THIA100T22 PO; +ZINC220C5 PO
--- NOTE | 2021-05-26 18:28 | PHYS DOC ---
Past Medical History Past Medical History: Bipolar, Diabetes-Type II, Hypertension, Stroke Additional Past Medical Histor: MULTIPLE FALLS, EDEMA, COGNITIVE COMMUNICATION DEFICIT Past Surgical History: Other Additional Past Surgical Histo: UNKNOWN Smoking Status: Never Smoker Alcohol Use: None Drug Use: None General Adult EDM: Chief Complaint: Mental status change HPI: HPI: 70-year-old female who is a [facility] and is baseline nonverbal from previous stroke patient presents to the emergency department with mental status change at her [facility]. Reportedly she was seen staring off into space for more time than usual and had twitching movements of her face. She was then sent to the ER for further evaluation. She apparently had a urinalysis done at the nursing facility which showed infection but she was not treated for this infection yet. Blood sugar in the field was 120. The patient is unable to provide any history secondary to her baseline mental status. There is no concrete seizure-like activity seen at the nursing facility. Review of Systems: Review of Systems: Review of systems is unable to be obtained from the patient secondary to her baseline mental status Heart Score: C/O Chest Pain: No Allergies: Allergies: Allergies Coded Allergies Type Severity Reaction Last Updated Verified No Known Drug Allergies 07/04/14 No Physical Exam: PE: Constitutional: Chronically ill-appearing female, baseline nonverbal. HENT: Atraumatic, bilateral external ears normal, nose normal. Eyes: PERRLA, EOMI, conjunctiva normal, no discharge. Neck: Normal range of motion, supple, no stridor. Cardiovascular: Heart rate regular rhythm. 2+ radial pulses Lungs & Thorax: No respiratory distress, symmetrical expansion. Bilateral breath sounds clear to auscultation Abdomen: Soft, no tenderness obese abdomen. Skin: Warm, dry. Extremities: No tenderness, no cyanosis, ROM intact, no edema. Current Patient Data: Labs: Laboratory Tests Test 05/26/21 18:25 05/26/21 18:45 White Blood Count 13.4 x10^3/uL (4.0-11.0) Red Blood Count 4.41 x10^6/uL (3.50-5.40) Hemoglobin 11.9 g/dL (12.0-15.5) Hematocrit 37.3 % (36.0-47.0) Mean Corpuscular Volume 85 fL (79-100) Mean Corpuscular Hemoglobin 27 pg (25-35) Mean Corpuscular Hemoglobin Concent 32 g/dL (31-37) Red Cell Distribution Width 17.8 % (11.5-14.5) Platelet Count 272 x10^3/uL (140-400) Neutrophils (%) (Auto) 82 % (31-73) Lymphocytes (%) (Auto) 13 % (24-48) Monocytes (%) (Auto) 4 % (0-9) Eosinophils (%) (Auto) 0 % (0-3) Basophils (%) (Auto) 1 % (0-3) Neutrophils # (Auto) 11.0 x10^3/uL (1.8-7.7) Lymphocytes # (Auto) 1.8 x10^3/uL (1.0-4.8) Monocytes # (Auto) 0.6 x10^3/uL (0.0-1.1) Eosinophils # (Auto) 0.0 x10^3/uL (0.0-0.7) Basophils # (Auto) 0.1 x10^3/uL (0.0-0.2) Sodium Level 144 mmol/L (136-145) Potassium Level 3.9 mmol/L (3.5-5.1) Chloride Level 106 mmol/L (98-107) Carbon Dioxide Level 28 mmol/L (21-32) Anion Gap 10 (6-14) Blood Urea Nitrogen 16 mg/dL (7-20) Creatinine 1.0 mg/dL (0.6-1.0) Estimated GFR (Cockcroft-Gault) 54.8 BUN/Creatinine Ratio 16 (6-20) Glucose Level 126 mg/dL (70-99) Lactic Acid Level 1.7 mmol/L (0.4-2.0) Calcium Level 9.7 mg/dL (8.5-10.1) Total Bilirubin 0.3 mg/dL (0.2-1.0) Aspartate Amino Transf (AST/SGOT) 17 U/L (15-37) Alanine Aminotransferase (ALT/SGPT) 21 U/L (14-59) Alkaline Phosphatase 98 U/L (46-116) Total Protein 7.2 g/dL (6.4-8.2) Albumin 2.9 g/dL (3.4-5.0) Albumin/Globulin Ratio 0.7 (1.0-1.7) Urine Collection Type U cath Urine Color Yellow Urine Clarity Clear Urine pH 5.5 (<5.0-8.0) Urine Specific [place] 1.025 (1.000-1.030) Urine Protein 100 mg/dL (NEG-TRACE) Urine Glucose (UA) Negative mg/dL (NEG) Urine Ketones (Stick) Trace mg/dL (NEG) Urine Blood Small (NEG) Urine Nitrite Positive (NEG) Urine Bilirubin Negative (NEG) Urine Urobilinogen Dipstick 1.0 mg/dL (0.2 mg/dL) Urine Leukocyte Esterase Moderate (NEG) Urine RBC 3-5 /HPF (0-2) Urine WBC 20-40 /HPF (0-4) Urine Squamous Epithelial Cells Mod /LPF Urine Bacteria Many /HPF (0-FEW) Urine Mucus Marked /LPF My Orders - STUART MAY DO Procedure Category Date Status Time Cbc W Autodiff LAB 05/26/21 Complete 18:21 Comprehensive LAB 05/26/21 Complete Metabolic Panel 18:21 Lactic Acid With LAB 05/26/21 Complete Reflex 18:21 Ua, Cult If Indicated LAB 05/26/21 Complete 18:21 Blood Culture TAHMINA 05/26/21 Logged 18:21 Chest Ap Only RAD 05/26/21 Resulted 18:21 Ct Head Wo Contrast CT 05/26/21 Resulted 18:21 Ondansetron Pf PHA 05/26/21 Complete (Zofran) 19:00 Urine Culture TAHMINA 05/26/21 In Process 19:03 Ceftriaxone Iv Push PHA 05/26/21 Complete (Rocephin) 19:30 Vital Signs: Vital Signs Date Time Temp Pulse Resp B/P (MAP) Pulse Ox O2 Delivery O2 Flow Rate FiO2 05/26/21 18:51 75 20 97 05/26/21 18:22 98.3 68 20 166/107 (126) 98 Room Air 98.3 Radiology/Procedures: Radiology/Procedures: EXAM: CT Head without IV contrast CLINICAL HISTORY: Reason: mental status change COMPARISON: 03/15/2021 TECHNIQUE: Routine CT of the head without contrast. PQRS compliance statement - One or more of the following individualized dose reduction techniques were utilized for this study: 1. Automated exposure control 2. Adjustment of the mA and/or kV according to patient size 3. Use of iterative reconstruction technique FINDINGS: Exam is limited by motion artifact and suboptimal positioning. Within these constraints: There is no evidence of hemorrhage, mass or extra-axial fluid collection. Encephalomalacia left occipital region. Subcortical and periventricular as well as deep white matter foci of hypoattenuation likely changes of chronic small vessel disease. Otherwise, Vila-white differentiation is maintained with no evidence of edema. There is no mass effect or shift of the intracranial structures. The ventricles and cerebral sulci are prominent for the patients stated age cons istent with generalized cerebral volume loss. The cerebellum and brainstem are unremarkable. The calvarium demonstrates no evidence of fracture or focal lesion. There is normal aeration of the visualized paranasal sinuses and mastoid air cells. The visualized portions of the orbits are normal. Atherosclerotic calcifications of the intracranial internal carotid and vertebral arteries is seen. IMPRESSION: 1. No evidence for acute intracranial process. 2. White matter changes likely chronic small vessel disease. 3. 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 Electronically signed by: Carrington Molina MD (05/26/2021 7:28 PM) PROCEDURE: CHEST AP ONLY XR CHEST 1V CLINICAL INDICATIONS: Reason: altered mental state / Spl. Instructions: / History: COMPARISON: March 20, 2021. Findings: No new lung infiltrate or pleural effusion or pulmonary edema or lung mass or pneumothorax is seen. The heart size, pulmonary vasculature, mediastinum and both jaskaran are unremarkable. IMPRESSION: No acute radiographic abnormality is seen. Electronically signed by: Lamin Hwang MD (05/26/2021 7:22 PM) Course & Med Decision Making: Course & Med Decision Making Will admit to the hospital for mental status change, UTI with leukocytosis. Ceftriaxone given in the ED, will admit to Dr. Henry for further care. CT head shows senescent changes. Departure Departure Impression: Primary Impression: UTI (urinary tract infection) Additional Impression: Altered mental state Disposition: 09 ADMITTED INPATIENT Admitting Physician: VINAY Wright) Referrals: TAWANA MONROY MD (PCP) STUART MAY DO May 26, 2021 18:28
[2021-05-26 18:42] LABS: BASO # 0.1 x10^3/uL (0.0-0.2); BASO % 1 % (0-3); EOS % 0 % (0-3); HEMATOCRIT 37.3 % (36.0-47.0); HEMOGLOBIN 11.9 g/dL (12.0-15.5); LYMPH # 1.8 x10^3/uL (1.0-4.8); LYMPH % 13 % (24-48); MEAN CORPUSCULAR HEMOGLOBIN 27 pg (25-35); MEAN CORPUSCULAR HGB CONC 32 g/dL (31-37); MEAN CORPUSCULAR VOLUME 85 fL (79-100); MONO # 0.6 x10^3/uL (0.0-1.1); MONO % 4 % (0-9); NEUT % 82 % (31-73); PLATELET COUNT 272 x10^3/uL (140-400); RED BLOOD COUNT 4.41 x10^6/uL (3.50-5.40); RED CELL DISTRIBUTION WIDTH 17.8 % (11.5-14.5); WHITE BLOOD COUNT 13.4 x10^3/uL (4.0-11.0)
[2021-05-26] MEDS ORDERED: ONDANSETRON PF 4 MG/2 ML VIAL. ONE (18:47)
[2021-05-26 18:53] LABS: CALCIUM 9.7 mg/dL (8.5-10.1); GFR 54.8; POTASSIUM 3.9 mmol/L (3.5-5.1)
[2021-05-26 18:55] LABS: BILIRUBIN,URINE NEGATIVE (NEG); CLARITY,URINE CLEAR; COLOR,URINE YELLOW; NITRITE,URINE POSITIVE (NEG); PH,URINE 5.5 (<5.0-8.0); PROTEIN,URINE 100 mg/dL (NEG-TRACE)
[2021-05-26 18:59] LABS: ALBUMIN 2.9 g/dL (3.4-5.0); ALBUMIN/GLOBULIN RATIO 0.7 (1.0-1.7); TOTAL BILIRUBIN 0.3 mg/dL (0.2-1.0); TOTAL PROTEIN 7.2 g/dL (6.4-8.2)
[2021-05-26] MEDS ORDERED: ONDANSETRON PF 4 MG/2 ML VIAL. IVP ONE (19:00)
[2021-05-26 19:02] LABS: BACTERIA,URINE MANY /HPF (0-FEW); WBC,URINE 20-40 /HPF (0-4)
--- NOTE | 2021-05-26 19:24 | RAD ---
XR CHEST 1V CLINICAL INDICATIONS: Reason: altered mental state / Spl. Instructions: / History: COMPARISON: March 20, 2021. Findings: No new lung infiltrate or pleural effusion or pulmonary edema or lung mass or pneumothorax is seen. The heart size, pulmonary vasculature, mediastinum and both jaskaran are unremarkable. IMPRESSION: No acute radiographic abnormality is seen. Electronically signed by: Lamin Hwang MD (05/26/2021 7:22 PM) [id number]
[2021-05-26] MEDS ORDERED: cefTRIAXone IV Push 1 GM VIAL. IVP ONE (19:30)
--- NOTE | 2021-05-26 19:30 | RAD ---
EXAM: CT Head without IV contrast CLINICAL HISTORY: Reason: mental status change COMPARISON: 03/15/2021 TECHNIQUE: Routine CT of the head without contrast. PQRS compliance statement - One or more of the following individualized dose reduction techniques wer e utilized for this study: 1. Automated exposure control 2. Adjustment of the mA and/or kV according to patient size 3. Use of iterative reconstruction technique FINDINGS: Exam is limited by motion artifact and suboptimal positioning. Within these constraints: There is no evidence of hemorrhage, mass or extra-axial fluid collection. Encephalomalacia left occipital region. Subcortical and periventricular as well as deep white matter foci of hypoattenuation likely changes of chronic small vessel disease. Otherwise, Vila-white differe ntiation is maintained with no evidence of edema. There is no mass effect or shift of the intracranial structures. The ventricles and cerebral sulci are prominent for the patients stated age consistent with generaliz ed cerebral volume loss. The cerebellum and brainstem are unremarkable. The calvarium demonstrates no evidence of fracture or focal lesion. There is normal aeration of the visualized paranasal sinuses and mastoid air cells. The visualized portions of the orbits are normal. Atherosclerotic calcifications of the intracranial internal carotid and vertebral arteries is seen. IMPRESSION: 1. No evidence for acute intracranial process. 2. White matter changes likely chronic small vessel disease. 3. 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 Electronically signed by: Carrington Molina MD (05/26/2021 7:28 PM) PRINCESS
--- NOTE | 2021-05-26 20:02 | PDOC1 ---
History and Physical Date of Service: DOS: DATE: 05/26/21 TIME: 20:02 Chief Complaint: Problems: (1) UTI (urinary tract infection) (2) Weakness (3) Altered mental state History of Present Illness: HPI: Patient unable to provide history history from emergency room 70-year-old female who is a care home resident and is baseline nonverbal from previous stroke patient presents to the emergency department with mental status change at her care home. Reportedly she was seen staring off into space for more time than usual and had twitching movements of her face. She was then sent to the ER for further evaluation. She apparently had a urinalysis done at the nursing facility which showed infection but she was not treated for this infection yet. Blood sugar in the field was 120. The patient is unable to provide any history secondary to her baseline mental status. There is no concrete seizure-like activity seen at the nursing facility. Past Medical/Surgical History: PMH/PSH: Bipolar, Diabetes-Type II, Hypertension, Stroke, cognitive impairment, aphasia Allergies: Allergies: Coded Allergies: No Known Drug Allergies (Unverified , 07/04/14) Family History: Family History: Chart review showed no known Social History: Social History: No alcohol tobacco or drug use Current Medications: Current Medications Current Medications Ondansetron HCl (Zofran) 4 mg STK-MED ONCE .ROUTE ; Start 05/26/21 at 18:47; Stop 05/26/21 at 18:47; Status DC Ondansetron HCl (Zofran) 4 mg 1X ONCE IVP Last administered on 05/26/21at 19:09; Start 05/26/21 at 19:00; Stop 05/26/21 at 19:01; Status DC Ceftriaxone Sodium (Rocephin) 1 gm 1X ONCE IVP ; Start 05/26/21 at 19:30; Stop 05/26/21 at 19:31; Status DC Active Scripts Active Augmentin 250-62.5 Mg/5 Ml (Amoxicillin/Potassium Clav) 250 Mg/5 Ml Susp.recon 10 Ml PO BID 7 Days Vitamin D3 (Vitamin D) 25 Mcg Tablet 1,000 Unit PO DAILY 30 Days Vitamin C (Ascorbic Acid) 1,000 Mg Tablet 1,000 Mg PO TID 30 Days Vitamin B-1 (Thiamine Mononitrate) 100 Mg Tablet 100 Mg PO DAILY 30 Days Admelog (Insulin Lispro) 100 Unit/1 Ml Vial 0 Units SQ TIDWMEALS 14 Days Culturelle (Lactobacillus Rhamnosus Gg) 1 Each Cap.sprink 1 Cap PO BID 30 Days Pantoprazole Sodium (Pantoprazole Sodium) 40 Mg Tablet.dr 40 Mg PO DAILYAC 30 Days Zinc Sulfate 50 Mg Capsule 220 Mg PO DAILY 30 Days Acetaminophen 325 Mg Tablet 650 Mg PO PRN Q4HRS PRN 30 Days Reported Zyrtec (Cetirizine Hcl) 10 Mg Tablet 10 Mg PO DAILY Ondansetron Hcl 4 Mg Tablet 4 Mg PO BID PRN Polyethylene Glycol 3350 2,500 Gm Powder 17 Gm PO DAILY Depakote Er (Divalproex Sodium) 500 Mg Tab.er.24h 500 Mg PO BID Colace (Docusate Sodium) 100 Mg Capsule 100 Mg PO BID Celexa (Citalopram Hydrobromide) 20 Mg Tablet 20 Mg PO DAILY Aspirin 81 Mg Tab.chew 81 Mg PO DAILY Eliquis (Apixaban) 5 Mg Tablet 5 Mg PO BID Lantus Solostar (Insulin Glargine,Hum.rec.anlog) 100 Unit/1 Ml Insuln.pen 25 Unit SQ QHS Nystatin 15 Gm Powder 15 Gm TP BID Lipitor (Atorvastatin Calcium) 20 Mg Tablet 20 Mg PO HS Novolog Flexpen (Insulin Aspart) 100 Unit/1 Ml Insuln.pen 16 Unit SQ TIDWMEALS ROS: Review of Systems Review of System Cannot obtain Physical Exam: Vital Signs: Vital Signs Date Time Temp Pulse Resp B/P (MAP) Pulse Ox O2 Delivery O2 Flow Rate FiO2 05/26/21 18:51 75 20 97 05/26/21 18:22 98.3 166/107 (126) Room Air 98.3 Physcial Exam: GEN: No apparent distress. HEENT: Normal cephalic, atraumatic, external auditory canals are patent EYES: Extraocular muscles are intact, pupil are equally round and reactive to light and accommodation MUSCULOSKELETAL: Limited range of motion ENDOCRINE: No thyromegaly was palpated LYMPHATICS: No cervical chain or axillary nodes were noted HEMATOPOIETIC: No bruising NECK: Supple, no JVD, no thyromegaly was noted LUNGS: Clear to auscultation in all lung alarcon without rhonchi or wheezing HEART: RRR, S1, S2 present. Peripheral pulses intact, no obvious murmurs noted ABDOMEN: Soft, nontender. Positive bowel sounds, no organomegaly, normal b owel sounds EXTREMITIES: Without clubbing, cyanosis, or edema. Pedal pulses intact. Negative Homans sign NEUROLOGIC: Aphasic PSYCHIATRIC: Cannot assess SKIN: No ulcerations or rashes, good skin turgor, no jaundice VASCULAR: Good capillary refill, neurovascular bundle appears to be intact Labs: Labs: Laboratory Tests Test 05/26/21 18:25 05/26/21 18:45 White Blood Count 13.4 x10^3/uL (4.0-11.0) Red Blood Count 4.41 x10^6/uL (3.50-5.40) Hemoglobin 11.9 g/dL (12.0-15.5) Hematocrit 37.3 % (36.0-47.0) Mean Corpuscular Volume 85 fL (79-100) Mean Corpuscular Hemoglobin 27 pg (25-35) Mean Corpuscular Hemoglobin Concent 32 g/dL (31-37) Red Cell Distribution Width 17.8 % (11.5-14.5) Platelet Count 272 x10^3/uL (140-400) Neutrophils (%) (Auto) 82 % (31-73) Lymphocytes (%) (Auto) 13 % (24-48) Monocytes (%) (Auto) 4 % (0-9) Eosinophils (%) (Auto) 0 % (0-3) Basophils (%) (Auto) 1 % (0-3) Neutrophils # (Auto) 11.0 x10^3/uL (1.8-7.7) Lymphocytes # (Auto) 1.8 x10^3/uL (1.0-4.8) Monocytes # (Auto) 0.6 x10^3/uL (0.0-1.1) Eosinophils # (Auto) 0.0 x10^3/uL (0.0-0.7) Basophils # (Auto) 0.1 x10^3/uL (0.0-0.2) Sodium Level 144 mmol/L (136-145) Potassium Level 3.9 mmol/L (3.5-5.1) Chloride Level 106 mmol/L (98-107) Carbon Dioxide Level 28 mmol/L (21-32) Anion Gap 10 (6-14) Blood Urea Nitrogen 16 mg/dL (7-20) Creatinine 1.0 mg/dL (0.6-1.0) Estimated GFR (Cockcroft-Gault) 54.8 BUN/Creatinine Ratio 16 (6-20) Glucose Level 126 mg/dL (70-99) Lactic Acid Level 1.7 mmol/L (0.4-2.0) Calcium Level 9.7 mg/dL (8.5-10.1) Total Bilirubin 0.3 mg/dL (0.2-1.0) Aspartate Amino Transf (AST/SGOT) 17 U/L (15-37) Alanine Aminotransferase (ALT/SGPT) 21 U/L (14-59) Alkaline Phosphatase 98 U/L (46-116) Total Protein 7.2 g/dL (6.4-8.2) Albumin 2.9 g/dL (3.4-5.0) Albumin/Globulin Ratio 0.7 (1.0-1.7) Urine Collection Type U cath Urine Color Yellow Urine Clarity Clear Urine pH 5.5 (<5.0-8.0) Urine Specific [place] 1.025 (1.000-1.030) Urine Protein 100 mg/dL (NEG-TRACE) Urine Glucose (UA) Negative mg/dL (NEG) Urine Ketones (Stick) Trace mg/dL (NEG) Urine Blood Small (NEG) Urine Nitrite Positive (NEG) Urine Bilirubin Negative (NEG) Urine Urobilinogen Dipstick 1.0 mg/dL (0.2 mg/dL) Urine Leukocyte Esterase Moderate (NEG) Urine RBC 3-5 /HPF (0-2) Urine WBC 20-40 /HPF (0-4) Urine Squamous Epithelial Cells Mod /LPF Urine Bacteria Many /HPF (0-FEW) Urine Mucus Marked /LPF Laboratory Tests Test 05/26/21 18:25 05/26/21 18:45 White Blood Count 13.4 x10^3/uL (4.0-11.0) Red Blood Count 4.41 x10^6/uL (3.50-5.40) Hemoglobin 11.9 g/dL (12.0-15.5) Hematocrit 37.3 % (36.0-47.0) Mean Corpuscular Volume 85 fL (79-100) Mean Corpuscular Hemoglobin 27 pg (25-35) Mean Corpuscular Hemoglobin Concent 32 g/dL (31-37) Red Cell Distribution Width 17.8 % (11.5-14.5) Platelet Count 272 x10^3/uL (140-400) Neutrophils (%) (Auto) 82 % (31-73) Lymphocytes (%) (Auto) 13 % (24-48) Monocytes (%) (Auto) 4 % (0-9) Eosinophils (%) (Auto) 0 % (0-3) Basophils (%) (Auto) 1 % (0-3) Neutrophils # (Auto) 11.0 x10^3/uL (1.8-7.7) Lymphocytes # (Auto) 1.8 x10^3/uL (1.0-4.8) Monocytes # (Auto) 0.6 x10^3/uL (0.0-1.1) Eosinophils # (Auto) 0.0 x10^3/uL (0.0-0.7) Basophils # (Auto) 0.1 x10^3/uL (0.0-0.2) Sodium Level 144 mmol/L (136-145) Potassium Level 3.9 mmol/L (3.5-5.1) Chloride Level 106 mmol/L (98-107) Carbon Dioxide Level 28 mmol/L (21-32) Anion Gap 10 (6-14) Blood Urea Nitrogen 16 mg/dL (7-20) Creatinine 1.0 mg/dL (0.6-1.0) Estimated GFR (Cockcroft-Gault) 54.8 BUN/Creatinine Ratio 16 (6-20) Glucose Level 126 mg/dL (70-99) Lactic Acid Level 1.7 mmol/L (0.4-2.0) Calcium Level 9.7 mg/dL (8.5-10.1) Total Bilirubin 0.3 mg/dL (0.2-1.0) Aspartate Amino Transf (AST/SGOT) 17 U/L (15-37) Alanine Aminotransferase (ALT/SGPT) 21 U/L (14-59) Alkaline Phosphatase 98 U/L (46-116) Total Protein 7.2 g/dL (6.4-8.2) Albumin 2.9 g/dL (3.4-5.0) Albumin/Globulin Ratio 0.7 (1.0-1.7) Urine Collection Type U cath Urine Color Yellow Urine Clarity Clear Urine pH 5.5 (<5.0-8.0) Urine Specific [place] 1.025 (1.000-1.030) Urine Protein 100 mg/dL (NEG-TRACE) Urine Glucose (UA) Negative mg/dL (NEG) Urine Ketones (Stick) Trace mg/dL (NEG) Urine Blood Small (NEG) Urine Nitrite Positive (NEG) Urine Bilirubin Negative (NEG) Urine Urobilinogen Dipstick 1.0 mg/dL (0.2 mg/dL) Urine Leukocyte Esterase Moderate (NEG) Urine RBC 3-5 /HPF (0-2) Urine WBC 20-40 /HPF (0-4) Urine Squamous Epithelial Cells Mod /LPF Urine Bacteria Many /HPF (0-FEW) Urine Mucus Marked /LPF Assessment/Plan Assessment/Plan UTI, weakness, baseline altered mental status and history of type 2 diabetes hypertension and bipolar -Altered mental status at living facility -Found to have UTI. Received Rocephin emergency room will continue this for now -DVT prophylaxis -PT OT ordered -Home meds resumed as indicated -We will start sliding scale for blood sugar adjust as needed -Diet as tolerated Justifications for Admission Other Justification Altered mental status and acute UTI WENDY LE MD May 26, 2021 20:02
[2021-05-26 21:15] VITALS: BP 170/77
[2021-05-26] MEDS ORDERED: ANTI-COAG MONITOR BY PHARMACY. MC PRN (22:00)
[2021-05-26] MEDS ORDERED: ACETAMINOPHEN 325 MG TABLET. PO PRN ×2 (22:00→22:15)
[2021-05-26] MEDS ORDERED: CALCIUM CARBONATE 500 MG TAB.CHEW PO PRN (22:15)
[2021-05-26] MEDS ORDERED: ELECTROLYTE (NON-ICU) PROTOCOL. MC PRN (22:15)
[2021-05-26] MEDS ORDERED: ONDANSETRON PF 4 MG/2 ML VIAL. IVP PRN (22:15)
[2021-05-26] MEDS: ATORVASTATIN CALCIUM 20 MG TABLET PO SCH (22:30)
[2021-05-26 23:00] VITALS: BP 138/79
[2021-05-26] MEDS: SENNOSIDES/DOCUSATE 8.6/50MG TABLET. PO SCH (23:00)
[2021-05-26] MEDS: NYSTATIN TOPICAL POWDER 15GM BOTTLE. TP SCH (23:00)
[2021-05-26] MEDS: APIXABAN 5 MG TABLET. PO SCH (23:00)
[2021-05-26] MEDS: DIVALPROEX DELAYED RELEASE 500 MG TABLET.DR. PO SCH (23:00)
[2021-05-27] VITALS (7 sets, daily range): BP systolic 112–165; BP diastolic 63–94
[2021-05-27 03:16] LABS: BASE EXCESS ABG -1 mmol/L (-3-3); HCO3 ABG 24 mmol/L (21-28); PCO2 ABG 41 mmHg (35-46); PO2 ABG 60 mmHg (65-108); SAT O2 ABG 90 % (92-99)
--- NOTE | 2021-05-27 05:45 | NUR ---
Dr. Henry called to inform patient status: Respiratory distress, SPO2 fluctuating 88%-94% n 3L NC inititally, RR 20-22 , Vomiting green possible bile fluid x2 moderate amounts, Ausc crackles through out. RT paged blood gases drawn, pO2 60 oxygen increased 6L, NRB flush. will continue to monitor.
[2021-05-27] MEDS ORDERED: HEPARIN for SUB-Q USE 5,000 UNIT/ML VIAL. SQ SCH (06:00)
[2021-05-27] MEDS: PANTOPRAZOLE 40 MG TABLET.DR. PO SCH (07:30)
--- NOTE | 2021-05-27 08:36 | RAD ---
EXAM: Chest, single view. HISTORY: Aspiration. COMPARISON: 05/26/2021 FINDINGS: A frontal view of the chest is obtained. There is no infiltrate, pleural effusion or pneumo thorax. The heart is normal in size. IMPRESSION: No acute pulmonary finding. Electronically signed by: Julianna Caro MD (05/27/2021 8:34 AM) [id number]
[2021-05-27] MEDS: CETIRIZINE HCL 10 MG TABLET. PO SCH (09:00)
[2021-05-27] MEDS: APIXABAN 5 MG TABLET. PO SCH ×2 (09:00→21:38)
[2021-05-27] MEDS: DIVALPROEX DELAYED RELEASE 500 MG TABLET.DR. PO SCH (09:00)
[2021-05-27] MEDS: CITALOPRAM 20 MG TABLET. PO SCH (09:00)
[2021-05-27] MEDS: POLYETHYLENE GLYCOL 3350 17 GM PACKET. PO SCH (09:00)
[2021-05-27] MEDS: ASPIRIN CHEWABLE 81 MG TABLET. PO SCH (09:00)
[2021-05-27] MEDS: SENNOSIDES/DOCUSATE 8.6/50MG TABLET. PO SCH ×2 (09:00→21:38)
--- NOTE | 2021-05-27 10:24 | PDOC ---
[facility] PROGRESS NOTE Date of Service DOS: DATE: 05/27/21 TIME: 10:16 Chief Complaint Chief Complaint UTI Weakness Baseline altered mental status History of type 2 diabetes Hypertension History of Bipolar -Altered mental status at living facility -Found to have UTI. Received Rocephin emergency room will continue this for now -DVT prophylaxis -PT OT ordered -Home meds resumed as indicated -We will start sliding scale for blood sugar adjust as needed -Diet as tolerated History of Present Illness History of Present Illness Patient unable to provide history history from emergency room. 70-year-old female who is a [place] [facility] resident and is baseline nonverbal from previous stroke patient presents to the emergency department with mental status change at her [place] [facility]. Reportedly she was seen staring off into space for more time than usual and had twitching movements of her face. She was then sent to the ER for further evaluation. She apparently had a urinalysis done at the nursing facility which showed infection but she was not treated for this infection yet. Blood sugar in the field was 120. The patient is unable to provide any history secondary to her baseline mental status. There is no concrete seizure-like activity seen at the nursing facility. 05/27: Low-grade fever overnight (T-max 99.9 F), breathing on 3 L nasal cannula. Continue Rocephin 1 g daily. Will continue to follow urine culture. Unknown baseline mental status, but once we have results of urine culture she can be discharged to complete her antibiotic course as outpatient. If no improvement in her mental status after completion of antibiotic treatment with appropriate sensitivities, will consult neurology. Vitals/I&O Vitals/I&O: Vital Signs Date Time Temp Pulse Resp B/P (MAP) Pulse Ox O2 Delivery O2 Flow Rate FiO2 05/27/21 07:00 99.9 99 20 119/94 (102) 99 Nasal Cannula 3.0 99.9 I & O 05/26/21 05/26/21 05/27/21 15:00 23:00 07:00 Intake Total 0 ml Output Total 1 ml Balance -1 ml Physical Exam General: Alert, Cooperative Heart: Regular rate Lungs: Clear Abdomen: Soft, No tenderness Extremities: No clubbing, No cyanosis Skin: No rashes, No breakdown Labs Labs: Laboratory Tests Test 05/26/21 18:25 05/26/21 18:45 05/27/21 03:00 White Blood Count 13.4 x10^3/uL (4.0-11.0) Red Blood Count 4.41 x10^6/uL (3.50-5.40) Hemoglobin 11.9 g/dL (12.0-15.5) Hematocrit 37.3 % (36.0-47.0) Mean Corpuscular Volume 85 fL (79-100) Mean Corpuscular Hemoglobin 27 pg (25-35) Mean Corpuscular Hemoglobin Concent 32 g/dL (31-37) Red Cell Distribution Width 17.8 % (11.5-14.5) Platelet Count 272 x10^3/uL (140-400) Neutrophils (%) (Auto) 82 % (31-73) Lymphocytes (%) (Auto) 13 % (24-48) Monocytes (%) (Auto) 4 % (0-9) Eosinophils (%) (Auto) 0 % (0-3) Basophils (%) (Auto) 1 % (0-3) Neutrophils # (Auto) 11.0 x10^3/uL (1.8-7.7) Lymphocytes # (Auto) 1.8 x10^3/uL (1.0-4.8) Monocytes # (Auto) 0.6 x10^3/uL (0.0-1.1) Eosinophils # (Auto) 0.0 x10^3/uL (0.0-0.7) Basophils # (Auto) 0.1 x10^3/uL (0.0-0.2) Sodium Level 144 mmol/L (136-145) Potassium Level 3.9 mmol/L (3.5-5.1) Chloride Level 106 mmol/L (98-107) Carbon Dioxide Level 28 mmol/L (21-32) Anion Gap 10 (6-14) Blood Urea Nitrogen 16 mg/dL (7-20) Creatinine 1.0 mg/dL (0.6-1.0) Estimated GFR (Cockcroft-Gault) 54.8 BUN/Creatinine Ratio 16 (6-20) Glucose Level 126 mg/dL (70-99) Lactic Acid Level 1.7 mmol/L (0.4-2.0) Calcium Level 9.7 mg/dL (8.5-10.1) Total Bilirubin 0.3 mg/dL (0.2-1.0) Aspartate Amino Transf (AST/SGOT) 17 U/L (15-37) Alanine Aminotransferase (ALT/SGPT) 21 U/L (14-59) Alkaline Phosphatase 98 U/L (46-116) Total Protein 7.2 g/dL (6.4-8.2) Albumin 2.9 g/dL (3.4-5.0) Albumin/Globulin Ratio 0.7 (1.0-1.7) Urine Collection Type U cath Urine Color Yellow Urine Clarity Clear Urine pH 5.5 (<5.0-8.0) Urine Specific [place] 1.025 (1.000-1.030) Urine Protein 100 mg/dL (NEG-TRACE) Urine Glucose (UA) Negative mg/dL (NEG) Urine Ketones (Stick) Trace mg/dL (NEG) Urine Blood Small (NEG) Urine Nitrite Positive (NEG) Urine Bilirubin Negative (NEG) Urine Urobilinogen Dipstick 1.0 mg/dL (0.2 mg/dL) Urine Leukocyte Esterase Moderate (NEG) Urine RBC 3-5 /HPF (0-2) Urine WBC 20-40 /HPF (0-4) Urine Squamous Epithelial Cells Mod /LPF Urine Bacteria Many /HPF (0-FEW) Urine Mucus Marked /LPF O2 Saturation 90 % (92-99) Arterial Blood pH 7.38 (7.35-7.45) Arterial Blood pCO2 at Patient Temp 41 mmHg (35-46) Arterial Blood pO2 at Patient Temp 60 mmHg (65-108) Arterial Blood HCO3 24 mmol/L (21-28) Arterial Blood Base Excess -1 mmol/L (-3-3) FiO2 Assessment and Plan Assessmemt and Plan Problems Medical Problems: (1) Altered mental state Status: Acute (2) UTI (urinary tract infection) Status: Acute Comment Review of Relevant I have reviewed the following items venita (where applicable) has been applied. Medications: Current Medications Medications (Trade) Dose Ordered Sig/Glory Route PRN Reason Start Time Stop Time Status Last Admin Dose Admin Ondansetron HCl (Zofran) 4 mg 1X ONCE IVP 05/26/21 19:00 05/26/21 19:01 DC 05/26/21 19:09 Ceftriaxone Sodium (Rocephin) 1 gm 1X ONCE IVP 05/26/21 19:30 05/26/21 19:31 DC 05/26/21 20:04 Ondansetron HCl (Zofran) 4 mg PRN Q6HRS PRN IVP NAUSEA/VOMITING 1ST CHOICE 05/26/21 22:15 05/27/21 02:29 Justifications for Admission Other Justification Altered mental status and acute UTI AMOL DE LA VEGA MD May 27, 2021 10:24
[2021-05-27] MEDS: NYSTATIN TOPICAL POWDER 15GM BOTTLE. TP SCH ×2 (11:00→21:38)
[2021-05-27] MEDS ORDERED: DEXTROSE 50% 25 GM / 50ML DISP.SYRIN. IV PRN ×2 (12:45)
[2021-05-27] MEDS: IV NORMAL SALINE 1000ML BAG 1,000 ML IV SCH ×2 (12:50→23:55)
--- NOTE | 2021-05-27 13:00 | NUR ---
Dr. Banegas notified of positive blood cx, 08/06 with gram positive cocci, possibly staph. He wants to cont with current plan of tx at this time. He was also asked if neurology needs to be consulted d/t her symptoms that she is having; head continuously stays to the right, eyes are to the right, trembling in the mouth and arm noted. He does not want to do any other consults at this time.
[2021-05-27] MEDS: INSULIN LISPRO 300 UNITS/3 ML VIAL. SQ SCH (17:00)
--- NOTE | 2021-05-27 17:37 | NUR ---
Spoke to Dr. Wright in regards to pt behavior and neck/eye spasms. Pt unable to take her medications PO d/t not alert enough to swallow. Pt has an order for depakote but has not taken it, order for IV depakote being order per Dr. rWight
[2021-05-27] MEDS: VALPROIC ACID (AS SODIUM SALT) 500 MG in IV DEXTROSE 5% 50 ML IV SCH (18:02)
[2021-05-27] MEDS ORDERED: cefTRIAXone IV Push 1 GM VIAL. IVP SCH (20:00)
[2021-05-27] MEDS: ATORVASTATIN CALCIUM 20 MG TABLET PO SCH (21:38)
[2021-05-28] MEDS: ACETAMINOPHEN 650 MG SUPP.RECT. PR PRN ×2 (01:50→06:05)
[2021-05-28 03:31] VITALS: BP 161/71
[2021-05-28 04:50] LABS: BASO # 0.1 x10^3/uL (0.0-0.2); BASO % 0 % (0-3); EOS % 0 % (0-3); HEMATOCRIT 33.1 % (36.0-47.0); HEMOGLOBIN 10.2 g/dL (12.0-15.5); LYMPH # 2.2 x10^3/uL (1.0-4.8); LYMPH % 13 % (24-48); MEAN CORPUSCULAR HEMOGLOBIN 26 pg (25-35); MEAN CORPUSCULAR HGB CONC 31 g/dL (31-37); MEAN CORPUSCULAR VOLUME 86 fL (79-100); MONO # 2.1 x10^3/uL (0.0-1.1); MONO % 13 % (0-9); NEUT # 12.4 x10^3/uL (1.8-7.7); NEUT % 74 % (31-73); PLATELET COUNT 217 x10^3/uL (140-400); RED BLOOD COUNT 3.86 x10^6/uL (3.50-5.40); RED CELL DISTRIBUTION WIDTH 18.3 % (11.5-14.5); WHITE BLOOD COUNT 16.9 x10^3/uL (4.0-11.0)
[2021-05-28 05:35] LABS: % BANDS 1 % (0-9); % LYMPHS 15 % (24-48); % MONOS 11 % (0-10); % SEGS 73 % (35-66); HYPOCHROMIA SLIGHT; PLT ESTIMATE ADEQUATE (ADEQUATE)
[2021-05-28 05:36] LABS: ANISOCYTOSIS SLIGHT
[2021-05-28 07:00] VITALS: BP 132/59
[2021-05-28] MEDS: PANTOPRAZOLE 40 MG TABLET.DR. PO SCH (07:30)
[2021-05-28] MEDS: INSULIN LISPRO 300 UNITS/3 ML VIAL. SQ SCH ×3 (08:00→17:00)
[2021-05-28] MEDS: POLYETHYLENE GLYCOL 3350 17 GM PACKET. PO SCH (08:37)
[2021-05-28] MEDS: ASPIRIN CHEWABLE 81 MG TABLET. PO SCH (08:37)
[2021-05-28] MEDS: APIXABAN 5 MG TABLET. PO SCH (08:37)
[2021-05-28] MEDS: CITALOPRAM 20 MG TABLET. PO SCH (08:37)
[2021-05-28] MEDS: SENNOSIDES/DOCUSATE 8.6/50MG TABLET. PO SCH ×2 (08:38→21:03)
[2021-05-28] MEDS: CETIRIZINE HCL 10 MG TABLET. PO SCH (08:38)
[2021-05-28] MEDS: VALPROIC ACID (AS SODIUM SALT) 500 MG in IV DEXTROSE 5% 50 ML IV SCH ×2 (09:43→21:02)
[2021-05-28] MEDS: IV NORMAL SALINE 1000ML BAG 1,000 ML IV SCH ×2 (09:43→19:13)
[2021-05-28] MEDS: NYSTATIN TOPICAL POWDER 15GM BOTTLE. TP SCH ×2 (09:50→21:02)
[2021-05-28 11:00] VITALS: BP 141/59
--- NOTE | 2021-05-28 11:17 | PDOC ---
[employer] [facility] PROGRESS NOTE Date of Service DOS: DATE: 05/28/21 TIME: 11:10 Chief Complaint Chief Complaint UTI Weakness Baseline altered mental status History of type 2 diabetes Hypertension History of Bipolar -Altered mental status at living facility -Found to have UTI. Received Rocephin emergency room will continue this for now -DVT prophylaxis -PT OT ordered -Home meds resumed as indicated -We will start sliding scale for blood sugar adjust as needed -Diet as tolerated History of Present Illness History of Present Illness Patient unable to provide history history from emergency room. 70-year-old female who is a snf resident and is baseline nonverbal from previous stroke patient presents to the emergency department with mental status change at her snf. Reportedly she was seen staring off into space for more time than usual and had twitching movements of her face. She was then sent to the ER for further evaluation. She apparently had a urinalysis done at the nursing facility which showed infection but she was not treated for this infection yet. Blood sugar in the field was 120. The patient is unable to provide any history secondary to her baseline mental status. There is no concrete seizure-like activity seen at the nursing facility. 05/27: Low-grade fever overnight (T-max 99.9 F), breathing on 3 L nasal cannula. Continue Rocephin 1 g daily. Will continue to follow urine culture. Unknown baseline mental status, but once we have results of urine culture she can be discharged to complete her antibiotic course as outpatient. If no improvement in her mental status after completion of antibiotic treatment with appropriate sensitivities, will consult neurology. 05/28: Febrile overnight, T-max 102.5 F. Currently on 14 L nonrebreather. No urine cultures to date. Today should be her third dose of Rocephin. Will obtain repeat UA with culture, however concerned that she has been on antibiotics for the past 2 days. Chest x-ray yesterday showed no acute pulmonary finding. Blood cultures yesterday showed gram-positive cocci in clusters, suggestive of staph in 1 of 4 bottles. Initially thought blood cultures may be contaminants, but due to fever and worsening WBC. After consultation with ID, next likely source could be CSF. Discussed with daughter and she is agreeable to lumbar puncture. Will place LP orders; she will need to hold her Eliquis likely for 2 days prior to this procedure. Critical care time 30 minutes spent reviewing charts, reviewing labs, reviewing imaging, discussion with daughter, and discussion with Dr. Elkins. Vitals/I&O Vitals/I&O: Vital Signs Date Time Temp Pulse Resp B/P (MAP) Pulse Ox O2 Delivery O2 Flow Rate FiO2 05/28/21 08:00 Non-Rebreather 14.0 05/28/21 07:00 98.0 66 18 132/59 (83) 94 98.0 I & O 05/27/21 05/27/21 05/28/21 15:00 23:00 07:00 Intake Total 0 ml 486 ml 0 ml Output Total 1 ml Balance 0 ml 485 ml 0 ml Physical Exam General: Alert, Cooperative Heart: Regular rate Lungs: Clear Abdomen: Soft, No tenderness Extremities: No clubbing, No cyanosis Skin: No rashes, No breakdown Labs Labs: Laboratory Tests Test 05/27/21 12:37 05/27/21 16:58 05/27/21 20:35 05/28/21 03:35 Glucose (Fingerstick) 166 mg/dL (70-99) 149 mg/dL (70-99) 169 mg/dL (70-99) White Blood Count 16.9 x10^3/uL (4.0-11.0) Red Blood Count 3.86 x10^6/uL (3.50-5.40) Hemoglobin 10.2 g/dL (12.0-15.5) Hematocrit 33.1 % (36.0-47.0) Mean Corpuscular Volume 86 fL (79-100) Mean Corpuscular Hemoglobin 26 pg (25-35) Mean Corpuscular Hemoglobin Concent 31 g/dL (31-37) Red Cell Distribution Width 18.3 % (11.5-14.5) Platelet Count 217 x10^3/uL (140-400) Neutrophils (%) (Auto) 74 % (31-73) Lymphocytes (%) (Auto) 13 % (24-48) Monocytes (%) (Auto) 13 % (0-9) Eosinophils (%) (Auto) 0 % (0-3) Basophils (%) (Auto) 0 % (0-3) Neutrophils # (Auto) 12.4 x10^3/uL (1.8-7.7) Lymphocytes # (Auto) 2.2 x10^3/uL (1.0-4.8) Monocytes # (Auto) 2.1 x10^3/uL (0.0-1.1) Eosinophils # (Auto) 0.0 x10^3/uL (0.0-0.7) Basophils # (Auto) 0.1 x10^3/uL (0.0-0.2) Segmented Neutrophils % 73 % (35-66) Band Neutrophils % 1 % (0-9) Lymphocytes % 15 % (24-48) Monocytes % 11 % (0-10) Platelet Estimate Adequate (ADEQUATE) Hypochromasia Slight Anisocytosis Slight Test 05/28/21 07:25 05/28/21 10:42 Glucose (Fingerstick) 165 mg/dL (70-99) 154 mg/dL (70-99) Assessment and Plan Assessmemt and Plan Problems Medical Problems: (1) Altered mental state Status: Acute (2) UTI (urinary tract infection) Status: Acute Comment Review of Relevant I have reviewed the following items venita (where applicable) has been applied. Medications: Current Medications Medications (Trade) Dose Ordered Sig/Glory Route PRN Reason Start Time Stop Time Status Last Admin Dose Admin Ceftriaxone Sodium (Rocephin) 1 gm Q24H IVP 05/27/21 20:00 05/27/21 19:50 Sodium Chloride 1,000 ml @ 100 mls/hr Q10H IV 05/27/21 12:45 05/28/21 09:43 Acetaminophen (Tylenol Supp) 650 mg PRN Q6HRS PRN IA MILD PAIN / TEMP > 100.3'F 05/27/21 16:45 05/28/21 06:05 Valproic Acid 500 mg/Dextrose 55 ml @ 55 mls/hr Q12HR IV 05/27/21 18:30 05/28/21 09:43 Justifications for Admission Other Justification Altered mental status and acute UTI AMOL DE LA VEGA MD May 28, 2021 11:17
--- NOTE | 2021-05-28 11:44 | PDOC ---
Infectious Disease Note Vital Signs: Vital Signs Vital Signs Date Time Temp Pulse Resp B/P (MAP) Pulse Ox O2 Delivery O2 Flow Rate FiO2 05/28/21 08:00 Non-Rebreather 14.0 05/28/21 07:00 98.0 66 18 132/59 (83) 94 98.0 Medications: Inpatient Meds: Medications reviewed. Labs: Lab Laboratory Tests Test 05/27/21 12:37 05/27/21 16:58 05/27/21 20:35 05/28/21 03:35 Glucose (Fingerstick) 166 mg/dL (70-99) 149 mg/dL (70-99) 169 mg/dL (70-99) White Blood Count 16.9 x10^3/uL (4.0-11.0) Red Blood Count 3.86 x10^6/uL (3.50-5.40) Hemoglobin 10.2 g/dL (12.0-15.5) Hematocrit 33.1 % (36.0-47.0) Mean Corpuscular Volume 86 fL (79-100) Mean Corpuscular Hemoglobin 26 pg (25-35) Mean Corpuscular Hemoglobin Concent 31 g/dL (31-37) Red Cell Distribution Width 18.3 % (11.5-14.5) Platelet Count 217 x10^3/uL (140-400) Neutrophils (%) (Auto) 74 % (31-73) Lymphocytes (%) (Auto) 13 % (24-48) Monocytes (%) (Auto) 13 % (0-9) Eosinophils (%) (Auto) 0 % (0-3) Basophils (%) (Auto) 0 % (0-3) Neutrophils # (Auto) 12.4 x10^3/uL (1.8-7.7) Lymphocytes # (Auto) 2.2 x10^3/uL (1.0-4.8) Monocytes # (Auto) 2.1 x10^3/uL (0.0-1.1) Eosinophils # (Auto) 0.0 x10^3/uL (0.0-0.7) Basophils # (Auto) 0.1 x10^3/uL (0.0-0.2) Segmented Neutrophils % 73 % (35-66) Band Neutrophils % 1 % (0-9) Lymphocytes % 15 % (24-48) Monocytes % 11 % (0-10) Platelet Estimate Adequate (ADEQUATE) Hypochromasia Slight Anisocytosis Slight Test 05/28/21 07:25 05/28/21 10:42 Glucose (Fingerstick) 165 mg/dL (70-99) 154 mg/dL (70-99) Objective: Assessment: Patient seen and examined \ ID consult to follow Impression Encephalopathy Sepsis Bacteremia 1 out of 4 bottles present on admission could be a contaminant Fever Leukocytosis Altered mental status, baseline ?? History of CVA [facility] resident UTI Acute hypoxic respiratory failure Diabetes mellitus History of bipolar disorder Plan: Plan of Care Change antibiotics to daptomycin and cefepime Patient may need LP depending on final goals of treatment Maintain aspiration precaution Repeat blood cultures Follow-up labs and cultures Continue supportive care Prognosis guarded Discussed with Dr. Banegas Thank you for this consult Discussed with nursing staff ELZBIETA WARREN MD May 28, 2021 11:44
--- NOTE | 2021-05-28 11:52 | NUR ---
Order per Dr. Banegas to straight cath pt for urine to send down for cx and sensitivity
--- NOTE | 2021-05-28 12:23 | NUR ---
UA obtained via straight cath at 1210 and sent to lab
[2021-05-28] MEDS ORDERED: LIDOCAINE 1% Multi-Dose 20 ML VIAL. ONE (12:51)
--- NOTE | 2021-05-28 13:55 | RAD ---
EXAM: Fluoroscopic guided lumbar puncture. HISTORY: Mental status changes. Suspected meningitis. TECHNIQUE: The risks of the procedure were discussed with the patient and written and verbal consent was obtained from the patient's daughter. A timeout was performed. The patient was placed in a prone position on the fluoroscopic table and a suitable entry site into the central canal through the L3-L4 interlaminar space was identified with fluoroscopic guidance. This site was prepped and draped in sterile fashion. 1% lidocaine solution without epinephrine was i nfiltrated into the skin and deep soft tissues along the expected needle track. A 22-gauge spinal ne edle was advanced into the thecal sac with intermittent fluoroscopic guidance. No fluid was obtained. Therefore, using the same technique, the needle was placed at the L5-S1 interlaminar space. A total of 14 mL CSF was collected and sent to the laboratory for requested analysis. The needle was removed and a sterile bandage was placed. The patient tolerated the procedure without complication. A single fluoroscopic image is obtained. The total fluoroscopy time was 0.7 minutes. IMPRESSION: Successful fluoroscopically guided lumbar puncture with a yield of 14 cc CSF for laboratory analysis. Electronically signed by: Julianna Caro MD (05/28/2021 1:53 PM) [id number]
[2021-05-28 14:14] LABS: BILIRUBIN,URINE NEGATIVE (NEG); CLARITY,URINE CLEAR; NITRITE,URINE NEGATIVE (NEG); PH,URINE 5.5 (<5.0-8.0); PROTEIN,URINE 100 mg/dL (NEG-TRACE); UROBILINOGEN,URINE 0.2 mg/dL (0.2 mg/dL)
[2021-05-28 14:18] LABS: CSF PROTEIN 42.7 mg/dL (15.0-45.0)
[2021-05-28] MEDS: DAPTOmycin (GENERIC) IVPB 400 MG in IV NORMAL SALINE 50ML 50 ML IV SCH (14:19)
[2021-05-28] MEDS: CEFEPIME HCL IV Push 2 GM VIAL. IVP SCH ×2 (14:19→22:12)
[2021-05-28 14:48] LABS: BACTERIA,URINE 0 /HPF (0-FEW); COLOR,URINE YELLOW; RBC,URINE 0 /HPF (0-2); WBC,URINE OCC /HPF (0-4)
[2021-05-28 14:49] LABS: CSF CLARITY CLEAR; CSF COLOR COLORLESS; CSF RBC COUNT 6 /cmm (Not Established); CSF WBC COUNT 5 /cmm (Not Established)
[2021-05-28 15:00] VITALS: BP 113/46
[2021-05-28 19:00] VITALS: BP 136/59
[2021-05-28] MEDS: ATORVASTATIN CALCIUM 20 MG TABLET PO SCH (21:03)
--- NOTE | 2021-05-28 22:26 | CONS ---
DATE OF CONSULTATION: 05/28/2021 REFERRING PHYSICIAN: Dr. Banegas. REASON FOR CONSULTATION: Gram-positive bacteremia, 1/4 bottles HISTORY OF PRESENT ILLNESS: A 70-year-old female with history of CVA, nonverbal at baseline per chart who was unable to give any history, was brought to the ER with mental status changes and staring off into space for more time than usual with twitching abnormality of the face. The patient is unable to give history, history obtained from chart and medical staff. UA showed pyuria. The patient was started on Rocephin. She was febrile. White count was elevated. Lactate was 1.7. The patient underwent a chest x-ray which showed no acute abnormality. Head CT showed no evidence of acute intracranial process. 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 Patient is febrile today. White count has gone up to 16,000. Blood cultures showed 1/4 bottles positive for GPC. Repeat chest x-ray today was negative for cardiopulmonary process. The patient remains unresponsive, requiring 14 liters by nonrebreather. ID consultation has been requested for further evaluation and treatment. Today, the patient remains febrile at 102.5, yesterday does not respond to verbal or painful stimuli. REVIEW OF SYSTEMS: Unable to obtain. PAST MEDICAL HISTORY: History of cerebrovascular accident, nonverbal. Baseline unknown at this time. History of stroke, [facility] resident, diabetes mellitus, bipolar disorder, hypertension, cognitive impairment, aphasia. ALLERGIES: No known drug allergies. FAMILY HISTORY: As per HPI. SOCIAL HISTORY: No smoking, no alcohol. care home resident. CURRENT MEDICATIONS: Ceftriaxone. PHYSICAL EXAMINATION: VITAL SIGNS: T-max 102.5, noted GENERAL: Well-developed, well-nourished female, obtunded, does not respond to painful or verbal stimuli. HEENT: Eyes closed, unable to open mouth, on nonrebreather. NECK: Supple. LUNGS: Clear anteriorly. HEART: S1, S2. No murmurs. ABDOMEN: Soft, nontender, bowel sounds present. EXTREMITIES: No edema, no clubbing, no cyanosis. DERM: No generalized rash, some chronic venous stasis changes present over both the lower extremities, mild redness present. No open wounds noted. CENTRAL NERVOUS SYSTEM: Unable to assess. PSYCHIATRIC: Unable to assess. LABORATORY DATA: WBC 16.9, hemoglobin 10.0, hematocrit 33.1, platelets 217, bands 1, glucose 137, sodium 144, potassium 3.9, chloride 106, bicarb 28, BUN 16, creatinine 1.0, glucose 126. Lactate 1.7. UA shows moderate leukocyte esterase, 20-40 wbc's. INR 1.1. Repeat UA negative. Urine micro blood culture 1/4 bottles, GPC now 2/4 bottles. Urine culture, Klebsiella pneumoniae greater than 100,000. IMAGING: CT head as above. Chest x-ray as above. Repeat chest x-ray as above. IMPRESSION: 1. Encephalopathy with history of cerebrovascular accident, aphasia at baseline present on admission. CT head negative for acute changes on admission 2. Sepsis. 3. Gram-positive bacteremia in 1/4 bottles present on admission, could be a contaminant. 4. Fever, T-max 102.5 on Rocephin. 5. Leukocytosis. 6. care home resident. 7. Urinary tract infection. Urine culture positive for Klebsiella pneumoniae. 8. Acute hypoxic respiratory failure requiring nonrebreather. 9. Diabetes mellitus. 10. History of bipolar disorder. RECOMMENDATIONS: 1. Due to fever and unknown baseline mental status would recommend LP . Dr. Banegas will discuss with her daughter regarding the same. 2. Change Rocephin to daptomycin and cefepime ,may need renal dosing. 3. Maintain aspiration precaution. 4. Repeat blood cultures. 5. Follow up labs and cultures. 6. Continue supportive care. 7. Prognosis is guarded. 8. DNR Discussed with Dr. Banegas. Discussed with nursing staff. Thank you for allowing me to participate in this patient's care. If you have any questions, do not hesitate to contact me. CARLOS/HEMAL SONG: Hany TID: [id number] MTDD
[2021-05-28 23:07] VITALS: BP 165/67
[2021-05-29 03:10] VITALS: BP 148/70
[2021-05-29] MEDS: IV NORMAL SALINE 1000ML BAG 1,000 ML IV SCH (04:32)
[2021-05-29] MEDS: CEFEPIME HCL IV Push 2 GM VIAL. IVP SCH ×3 (05:38→21:34)
[2021-05-29 07:00] VITALS: BP 145/68
[2021-05-29] MEDS: PANTOPRAZOLE 40 MG TABLET.DR. PO SCH (07:30)
--- NOTE | 2021-05-29 07:59 | PDOC ---
Infectious Disease Note Subjective: Subjective Pt not responsive, winces today with painful stimuli No acute issues per d/w RN Vital Signs: Vital Signs Vital Signs Date Time Temp Pulse Resp B/P (MAP) Pulse Ox O2 Delivery O2 Flow Rate FiO2 05/29/21 03:10 98.1 72 18 148/70 (96) 96 NonRebreather Mask 14.0 98.1 Physical Exam: PHYSICAL EXAM GENERAL: Well-developed, well-nourished female, obtunded, does not respond to painful or verbal stimuli. HEENT: Eyes closed, unable to open mouth, on nonrebreather. NECK: Supple. LUNGS: Clear anteriorly. HEART: S1, S2. No murmurs. ABDOMEN: Soft, nontender, bowel sounds present. EXTREMITIES: No edema, no clubbing, no cyanosis. DERM: No generalized rash, some chronic venous stasis changes present over both the lower extremities, mild redness present. No open wounds noted. CENTRAL NERVOUS SYSTEM: Unable to assess. PSYCHIATRIC: Unable to assess. Medications: Inpatient Meds: Medications reviewed. Labs: Lab Laboratory Tests Test 05/28/21 10:26 05/28/21 10:42 05/28/21 13:00 05/28/21 13:35 Urine Collection Type Unknown Urine Color Yellow Urine Clarity Clear Urine pH 5.5 (<5.0-8.0) Urine Specific [place] >=1.030 (1.000-1.030) Urine Protein 100 mg/dL (NEG-TRACE) Urine Glucose (UA) Negative mg/dL (NEG) Urine Ketones (Stick) Trace mg/dL (NEG) Urine Blood Negative (NEG) Urine Nitrite Negative (NEG) Urine Bilirubin Negative (NEG) Urine Urobilinogen Dipstick 0.2 mg/dL (0.2 mg/dL) Urine Leukocyte Esterase Negative (NEG) Urine RBC 0 /HPF (0-2) Urine WBC Occ /HPF (0-4) Urine Squamous Epithelial Cells Few /LPF Urine Bacteria 0 /HPF (0-FEW) Urine Mucus Slight /LPF Glucose (Fingerstick) 154 mg/dL (70-99) Prothrombin Time 14.0 SEC (11.7-14.0) Prothromb Time International Ratio 1.1 (0.8-1.1) Activated Partial Thromboplast Time 34 SEC (24-38) CSF Tube Number 3 CSF Volume 3.0 CSF Color Colorless CSF Clarity Clear CSF WBC 5 /cmm (Not Established) CSF RBC 6 /cmm (Not Established) CSF Glucose 89 mg/dL (37-70) CSF Total Protein 42.7 mg/dL (15.0-45.0) Test 05/28/21 16:58 05/28/21 19:21 05/29/21 07:19 Glucose (Fingerstick) 141 mg/dL (70-99) 137 mg/dL (70-99) 114 mg/dL (70-99) Objective: Assessment: 1. Encephalopathy with history of cerebrovascular accident, aphasia at baseline, unclear. Lumbar puncture noted 2. Sepsis. 3. Gram-positive bacteremia in 1/4 bottles present on admission, could be a contaminant. 4. Fever, T-max 102.5. Fever pattern improving 5. Leukocytosis. 6. prison resident. 7. Urinary tract infection. Urine culture positive for Klebsiella pneumoniae. 8. Acute hypoxic respiratory failure requiring nonrebreather. 9. Diabetes mellitus. 10. History of bipolar disorder. Plan: Plan of Care Labs from this morning is pending at this time Lumbar puncture noted. Consider Neurology consult. Dr Banegas is planning to d/w daughter about baseline mental status Continue daptomycin and cefepime Maintain aspiration precaution Repeat blood cultures Follow-up labs and cultures Continue supportive care Prognosis guarded Discussed with Dr. Banegas Discussed with nursing staff ELZBIETA WARREN MD May 29, 2021 07:59
[2021-05-29] MEDS: INSULIN LISPRO 300 UNITS/3 ML VIAL. SQ SCH ×3 (08:00→17:00)
[2021-05-29 08:22] LABS: BASO # 0.1 x10^3/uL (0.0-0.2); BASO % 1 % (0-3); EOS % 0 % (0-3); HEMATOCRIT 30.5 % (36.0-47.0); HEMOGLOBIN 9.3 g/dL (12.0-15.5); LYMPH # 1.7 x10^3/uL (1.0-4.8); LYMPH % 13 % (24-48); MEAN CORPUSCULAR HEMOGLOBIN 27 pg (25-35); MEAN CORPUSCULAR HGB CONC 31 g/dL (31-37); MEAN CORPUSCULAR VOLUME 88 fL (79-100); MONO # 1.5 x10^3/uL (0.0-1.1); MONO % 11 % (0-9); NEUT # 10.3 x10^3/uL (1.8-7.7); NEUT % 75 % (31-73); PLATELET COUNT 183 x10^3/uL (140-400); RED BLOOD COUNT 3.47 x10^6/uL (3.50-5.40); WHITE BLOOD COUNT 13.6 x10^3/uL (4.0-11.0)
[2021-05-29 08:55] LABS: CALCIUM 10.1 mg/dL (8.5-10.1); CREATININE 0.8 mg/dL (0.6-1.0); GFR 70.9; POTASSIUM 3.7 mmol/L (3.5-5.1)
--- NOTE | 2021-05-29 08:59 | PDOC ---
[facility] PROGRESS NOTE Date of Service DOS: DATE: 05/29/21 TIME: 08:51 Chief Complaint Chief Complaint UTI Weakness Baseline altered mental status History of type 2 diabetes Hypertension History of Bipolar -Altered mental status at living facility -Found to have UTI. Received Rocephin emergency room will continue this for now -DVT prophylaxis -PT OT ordered -Home meds resumed as indicated -We will start sliding scale for blood sugar adjust as needed -Diet as tolerated History of Present Illness History of Present Illness Patient unable to provide history history from emergency room. 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 Reportedly she was seen staring off into space for more time than usual and had twitching movements of her face. She was then sent to the ER for further evaluation. She apparently had a urinalysis done at the nursing facility which showed infection but she was not treated for this infection yet. Blood sugar in the field was 120. The patient is unable to provide any history secondary to her baseline mental status. There is no concrete seizure-like activity seen at the nursing facility. 05/27: Low-grade fever overnight (T-max 99.9 F), breathing on 3 L nasal cannula. Continue Rocephin 1 g daily. Will continue to follow urine culture. Unknown baseline mental status, but once we have results of urine culture she can be discharged to complete her antibiotic course as outpatient. If no improvement in her mental status after completion of antibiotic treatment with appropriate sensitivities, will consult neurology. 05/28: Febrile overnight, T-max 102.5 F. Currently on 14 L nonrebreather. No urine cultures to date. Today should be her third dose of Rocephin. Will obtain repeat UA with culture, however concerned that she has been on antibiotics for the past 2 days. Chest x-ray yesterday showed no acute pulmonary finding. Blood cultures yesterday showed gram-positive cocci in clusters, suggestive of staph in 1 of 4 bottles. Initially thought blood cultures may be contaminants, but due to fever and worsening WBC. After consultation with ID, next likely source could be CSF. Discussed with daughter and she is agreeable to lumbar puncture. Will place LP orders; she will need to hold her Eliquis likely for 2 days prior to this procedure. Critical care time 30 minutes spent reviewing charts, reviewing labs, reviewing imaging, discussion with daughter, and discussion with Dr. Elkins. 05/29/2021: Afebrile overnight, on 15 L nonrebreather. No significant improveme nt in mentation. Urine culture growing Klebsiella pneumonia; will continue to follow urine culture for sensitivities. Currently on daptomycin and cefepime. Final blood culture showing Staph capitis; repeat blood cultures pending. CSF results showed no organisms on Gram stain. Vitals/I&O Vitals/I&O: Vital Signs Date Time Temp Pulse Resp B/P (MAP) Pulse Ox O2 Delivery O2 Flow Rate FiO2 05/29/21 07:00 98.9 75 18 145/68 (93) 93 NonRebreather Mask 14.0 98.9 I & O 05/28/21 05/28/21 05/29/21 15:00 23:00 07:00 Intake Total 50 ml 850 ml 0 ml Balance 50 ml 850 ml 0 ml Physical Exam Physical Exam: GENERAL: Well-developed, well-nourished female, obtunded, does not respond to painful or verbal stimuli. HEENT: Eyes closed, unable to open mouth, on nonrebreather. NECK: Supple. LUNGS: Clear anteriorly. HEART: S1, S2. No murmurs. ABDOMEN: Soft, nontender, bowel sounds present. EXTREMITIES: No edema, no clubbing, no cyanosis. DERM: No generalized rash, some chronic venous stasis changes present over both the lower extremities, mild redness present. No open wounds noted. CENTRAL NERVOUS SYSTEM: Unable to assess. PSYCHIATRIC: Unable to assess. General: Alert, Cooperative Heart: Regular rate Lungs: Clear Abdomen: Soft, No tenderness Extremities: No clubbing, No cyanosis Skin: No rashes, No breakdown Labs Labs: Laboratory Tests Test 05/28/21 10:26 05/28/21 10:42 05/28/21 13:00 05/28/21 13:35 Urine Collection Type Unknown Urine Color Yellow Urine Clarity Clear Urine pH 5.5 (<5.0-8.0) Urine Specific [place] >=1.030 (1.000-1.030) Urine Protein 100 mg/dL (NEG-TRACE) Urine Glucose (UA) Negative mg/dL (NEG) Urine Ketones (Stick) Trace mg/dL (NEG) Urine Blood Negative (NEG) Urine Nitrite Negative (NEG) Urine Bilirubin Negative (NEG) Urine Urobilinogen Dipstick 0.2 mg/dL (0.2 mg/dL) Urine Leukocyte Esterase Negative (NEG) Urine RBC 0 /HPF (0-2) Urine WBC Occ /HPF (0-4) Urine Squamous Epithelial Cells Few /LPF Urine Bacteria 0 /HPF (0-FEW) Urine Mucus Slight /LPF Glucose (Fingerstick) 154 mg/dL (70-99) Prothrombin Time 14.0 SEC (11.7-14.0) Prothromb Time International Ratio 1.1 (0.8-1.1) Activated Partial Thromboplast Time 34 SEC (24-38) CSF Tube Number 3 CSF Volume 3.0 CSF Color Colorless CSF Clarity Clear CSF WBC 5 /cmm (Not Established) CSF RBC 6 /cmm (Not Established) CSF Glucose 89 mg/dL (37-70) CSF Total Protein 42.7 mg/dL (15.0-45.0) Test 05/28/21 16:58 05/28/21 19:21 05/29/21 07:19 05/29/21 07:35 Glucose (Fingerstick) 141 mg/dL (70-99) 137 mg/dL (70-99) 114 mg/dL (70-99) White Blood Count 13.6 x10^3/uL (4.0-11.0) Red Blood Count 3.47 x10^6/uL (3.50-5.40) Hemoglobin 9.3 g/dL (12.0-15.5) Hematocrit 30.5 % (36.0-47.0) Mean Corpuscular Volume 88 fL (79-100) Mean Corpuscular Hemoglobin 27 pg (25-35) Mean Corpuscular Hemoglobin Concent 31 g/dL (31-37) Red Cell Distribution Width 18.0 % (11.5-14.5) Platelet Count 183 x10^3/uL (140-400) Neutrophils (%) (Auto) 75 % (31-73) Lymphocytes (%) (Auto) 13 % (24-48) Monocytes (%) (Auto) 11 % (0-9) Eosinophils (%) (Auto) 0 % (0-3) Basophils (%) (Auto) 1 % (0-3) Neutrophils # (Auto) 10.3 x10^3/uL (1.8-7.7) Lymphocytes # (Auto) 1.7 x10^3/uL (1.0-4.8) Monocytes # (Auto) 1.5 x10^3/uL (0.0-1.1) Eosinophils # (Auto) 0.0 x10^3/uL (0.0-0.7) Basophils # (Auto) 0.1 x10^3/uL (0.0-0.2) Assessment and Plan Assessmemt and Plan Problems Medical Problems: (1) Altered mental state Status: Acute (2) UTI (urinary tract infection) Status: Acute Comment Review of Relevant I have reviewed the following items venita (where applicable) has been applied. Medications: Current Medications Medications (Trade) Dose Ordered Sig/Glory Route PRN Reason Start Time Stop Time Status Last Admin Dose Admin Daptomycin 400 mg/ Sodium Chloride 50 ml @ 100 mls/hr Q24H IV 05/28/21 12:30 05/28/21 14:19 Cefepime HCl (Maxipime) 2 gm Q8HRS IVP 05/28/21 14:00 05/29/21 05:38 Justifications for Admission Other Justification Altered mental status and acute UTI AMOL DE LA VEGA MD May 29, 2021 08:59
[2021-05-29] MEDS: POLYETHYLENE GLYCOL 3350 17 GM PACKET. PO SCH (09:00)
[2021-05-29] MEDS: SENNOSIDES/DOCUSATE 8.6/50MG TABLET. PO SCH ×2 (09:00→20:57)
[2021-05-29] MEDS: HEPARIN for SUB-Q USE 5,000 UNIT/ML VIAL. SQ SCH ×2 (09:00→21:01)
[2021-05-29] MEDS: NYSTATIN TOPICAL POWDER 15GM BOTTLE. TP SCH ×2 (09:00→20:58)
[2021-05-29] MEDS: ASPIRIN CHEWABLE 81 MG TABLET. PO SCH (09:00)
[2021-05-29] MEDS: CETIRIZINE HCL 10 MG TABLET. PO SCH (09:00)
[2021-05-29] MEDS: CITALOPRAM 20 MG TABLET. PO SCH (09:00)
[2021-05-29] MEDS: VALPROIC ACID (AS SODIUM SALT) 500 MG in IV DEXTROSE 5% 50 ML IV SCH ×2 (09:21→20:58)
[2021-05-29 11:15] VITALS: BP 120/75
--- NOTE | 2021-05-29 11:51 | NUR ---
Dr. Elkins ordered CT of ABD/Pelvic WO contrast to r/o UTI
[2021-05-29] MEDS: DAPTOmycin (GENERIC) IVPB 400 MG in IV NORMAL SALINE 50ML 50 ML IV SCH (12:51)
--- NOTE | 2021-05-29 13:30 | RAD ---
EXAM: CT ABDOMEN/PELVIS WITHOUT CONTRAST. HISTORY: Infection, urinary tract infection. TECHNIQUE: Computed tomography of the abdomen and pelvis was performed without intravenous contrast. One or more of the following individualized dose reduction techniques were utilized for this examinat ion: 1. Automated exposure control. 2. Adjustment of the mA and/or kV according to patient size. 3. Use of iterative reconstruction technique. COMPARISON: None. FINDINGS: Lung windows through the visualized portions of the bases reveal consolidation or atelectas is throughout both lower lobes. There are diffuse coronary atherosclerotic calcifications. Bone windo ws reveal no suspicious lesions. There are limitations from respiratory motion artifact. The liver, spleen, adrenal glands, pancreas a nd kidneys are unremarkable without contrast. The uterus is surgically absent. Sigmoid diverticulosis is severe. There is no evidence of appendicit is. There is no small bowel obstruction. There is mild body wall and retroperitoneal edema. IMPRESSION: 1. No hydronephrosis or clear urothelial thickening on CT. 2. Bibasilar consolidation is consistent with pneumonia, versus subtotal atelectasis of both lower lo bes. Electronically signed by: Samy Horan MD (05/29/2021 1:27 PM) [id number]
[2021-05-29] MEDS ORDERED: IV 1/2 NORMAL SALINE 1,000 ML IV ONE (13:45)
[2021-05-29] MEDS: AA 4.25 %/CALCIUM/LYTES/D5W 1,000 ML IV SCH (14:06)
[2021-05-29 15:00] VITALS: BP 147/70
[2021-05-29 19:32] VITALS: BP 161/56
[2021-05-29] MEDS: ATORVASTATIN CALCIUM 20 MG TABLET PO SCH (20:57)
[2021-05-29 22:43] VITALS: BP 119/75
[2021-05-30] MEDS: AA 4.25 %/CALCIUM/LYTES/D5W 1,000 ML IV SCH ×2 (02:23→14:57)
[2021-05-30 03:14] VITALS: BP 158/52
[2021-05-30 04:57] LABS: BASO # 0.1 x10^3/uL (0.0-0.2); BASO % 1 % (0-3); EOS % 0 % (0-3); HEMATOCRIT 32.6 % (36.0-47.0); HEMOGLOBIN 10.4 g/dL (12.0-15.5); LYMPH # 1.9 x10^3/uL (1.0-4.8); LYMPH % 12 % (24-48); MEAN CORPUSCULAR HEMOGLOBIN 28 pg (25-35); MEAN CORPUSCULAR HGB CONC 32 g/dL (31-37); MEAN CORPUSCULAR VOLUME 86 fL (79-100); MONO # 1.7 x10^3/uL (0.0-1.1); MONO % 11 % (0-9); NEUT # 11.7 x10^3/uL (1.8-7.7); NEUT % 76 % (31-73); PLATELET COUNT 194 x10^3/uL (140-400); RED BLOOD COUNT 3.78 x10^6/uL (3.50-5.40); RED CELL DISTRIBUTION WIDTH 17.4 % (11.5-14.5); WHITE BLOOD COUNT 15.3 x10^3/uL (4.0-11.0)
[2021-05-30 05:07] LABS: CREATININE 0.8 mg/dL (0.6-1.0); GFR 70.9; POTASSIUM 3.9 mmol/L (3.5-5.1)
[2021-05-30] MEDS: CEFEPIME HCL IV Push 2 GM VIAL. IVP SCH ×3 (06:00→22:22)
[2021-05-30] MEDS: PANTOPRAZOLE 40 MG TABLET.DR. PO SCH (07:30)
[2021-05-30 07:37] VITALS: BP 122/59
[2021-05-30] MEDS: HEPARIN for SUB-Q USE 5,000 UNIT/ML VIAL. SQ SCH ×2 (08:01→21:26)
[2021-05-30] MEDS: VALPROIC ACID (AS SODIUM SALT) 500 MG in IV DEXTROSE 5% 50 ML IV SCH ×2 (08:04→21:12)
--- NOTE | 2021-05-30 08:08 | PDOC ---
Infectious Disease Note Subjective: Subjective Patient on nonrebreather Still does not open eyes Winces on deep painful stimuli T-max 99 Vital Signs: Vital Signs Vital Signs Date Time Temp Pulse Resp B/P (MAP) Pulse Ox O2 Delivery O2 Flow Rate FiO2 05/30/21 07:37 97.2 68 20 122/59 (80) 95 NonRebreather Mask 14.0 97.2 Physical Exam: PHYSICAL EXAM GENERAL: Well-developed, well-nourished female, obtunded, winces just on deep painful stimuli Nonrebreather HEENT: Eyes closed, unable to open mouth, on nonrebreather. NECK: Supple. LUNGS: Clear anteriorly. HEART: S1, S2. No murmurs. ABDOMEN: Soft, nontender, bowel sounds present. EXTREMITIES: No edema, no clubbing, no cyanosis. DERM: No generalized rash, some chronic venous stasis changes present over both the lower extremities, mild redness present. No open wounds noted. CENTRAL NERVOUS SYSTEM: Unable to assess. PSYCHIATRIC: Unable to assess. Medications: Inpatient Meds: Medications reviewed. Labs: Lab Laboratory Tests Test 05/29/21 12:01 05/29/21 16:25 05/29/21 20:35 05/30/21 03:30 Glucose (Fingerstick) 110 mg/dL (70-99) 132 mg/dL (70-99) 178 mg/dL (70-99) White Blood Count 15.3 x10^3/uL (4.0-11.0) Red Blood Count 3.78 x10^6/uL (3.50-5.40) Hemoglobin 10.4 g/dL (12.0-15.5) Hematocrit 32.6 % (36.0-47.0) Mean Corpuscular Volume 86 fL (79-100) Mean Corpuscular Hemoglobin 28 pg (25-35) Mean Corpuscular Hemoglobin Concent 32 g/dL (31-37) Red Cell Distribution Width 17.4 % (11.5-14.5) Platelet Count 194 x10^3/uL (140-400) Neutrophils (%) (Auto) 76 % (31-73) Lymphocytes (%) (Auto) 12 % (24-48) Monocytes (%) (Auto) 11 % (0-9) Eosinophils (%) (Auto) 0 % (0-3) Basophils (%) (Auto) 1 % (0-3) Neutrophils # (Auto) 11.7 x10^3/uL (1.8-7.7) Lymphocytes # (Auto) 1.9 x10^3/uL (1.0-4.8) Monocytes # (Auto) 1.7 x10^3/uL (0.0-1.1) Eosinophils # (Auto) 0.0 x10^3/uL (0.0-0.7) Basophils # (Auto) 0.1 x10^3/uL (0.0-0.2) Sodium Level 148 mmol/L (136-145) Potassium Level 3.9 mmol/L (3.5-5.1) Chloride Level 114 mmol/L (98-107) Carbon Dioxide Level 31 mmol/L (21-32) Anion Gap 3 (6-14) Blood Urea Nitrogen 24 mg/dL (7-20) Creatinine 0.8 mg/dL (0.6-1.0) Estimated GFR (Cockcroft-Gault) 70.9 Glucose Level 160 mg/dL (70-99) Calcium Level 10.0 mg/dL (8.5-10.1) Test 05/30/21 07:23 Glucose (Fingerstick) 178 mg/dL (70-99) Objective: Assessment: 1. Encephalopathy with history of cerebrovascular accident, aphasia at baseline, unclear. Lumbar puncture noted 2. Sepsis. 3. Gram-positive bacteremia in 1/4 bottles present on admission, could be a contaminant. 4. Fever, T-max 102.5. Fever pattern improving 5. Leukocytosis. 6. custodial resident. 7. Urinary tract infection. Urine culture positive for Klebsiella pneumoniae. 8. Acute hypoxic respiratory failure requiring nonrebreather. 9. Diabetes mellitus. 10. History of bipolar disorder. Plan: Plan of Care Lumbar puncture noted. Consider Neurology consult. Dr Banegas is planning to d/w daughter about her baseline mental status Continue daptomycin and cefepime CT abdomen and pelvis reviewed Maintain aspiration precaution Repeat blood cultures Follow-up labs and cultures Continue supportive care Prognosis guarded Discussed with Dr. Banegas Discussed with nursing staff ELZBIETA WARREN MD May 30, 2021 08:08
[2021-05-30] MEDS: INSULIN LISPRO 300 UNITS/3 ML VIAL. SQ SCH ×3 (08:27→17:56)
[2021-05-30] MEDS: ASPIRIN CHEWABLE 81 MG TABLET. PO SCH (09:00)
[2021-05-30] MEDS: CITALOPRAM 20 MG TABLET. PO SCH (09:00)
[2021-05-30] MEDS: SENNOSIDES/DOCUSATE 8.6/50MG TABLET. PO SCH ×2 (09:00→21:00)
[2021-05-30] MEDS: POLYETHYLENE GLYCOL 3350 17 GM PACKET. PO SCH (09:00)
[2021-05-30] MEDS: CETIRIZINE HCL 10 MG TABLET. PO SCH (09:00)
[2021-05-30] MEDS: NYSTATIN TOPICAL POWDER 15GM BOTTLE. TP SCH ×2 (09:00→21:10)
--- NOTE | 2021-05-30 09:17 | PDOC ---
[employer] PROGRESS NOTE Date of Service DOS: DATE: 05/30/21 TIME: 09:05 Chief Complaint Chief Complaint UTI Weakness Baseline altered mental status History of type 2 diabetes Hypertension History of Bipolar -Altered mental status at living facility -Found to have UTI. Received Rocephin emergency room will continue this for now -DVT prophylaxis -PT OT ordered -Home meds resumed as indicated -We will start sliding scale for blood sugar adjust as needed -Diet as tolerated History of Present Illness History of Present Illness Patient unable to provide history history from emergency room. 70-year-old female who is a assisted resident and is baseline nonverbal from previous stroke patient presents to the emergency department with mental status change at her assisted. Reportedly she was seen staring off into space for more time than usual and had twitching movements of her face. She was then sent to the ER for further evaluation. She apparently had a urinalysis done at the nursing facility which showed infection but she was not treated for this infection yet. Blood sugar in the field was 120. The patient is unable to provide any history secondary to her baseline mental status. There is no concrete seizure-like activity seen at the nursing facility. 05/27: Low-grade fever overnight (T-max 99.9 F), breathing on 3 L nasal cannula. Continue Rocephin 1 g daily. Will continue to follow urine culture. Unknown baseline mental status, but once we have results of urine culture she can be discharged to complete her antibiotic course as outpatient. If no improvement in her mental status after completion of antibiotic treatment with appropriate sensitivities, will consult neurology. 05/28: Febrile overnight, T-max 102.5 F. Currently on 14 L nonrebreather. No urine cultures to date. Today should be her third dose of Rocephin. Will obtain repeat UA with culture, however concerned that she has been on antibiotics for the past 2 days. Chest x-ray yesterday showed no acute pulmonary finding. Blood cultures yesterday showed gram-positive cocci in clusters, suggestive of staph in 1 of 4 bottles. Initially thought blood cultures may be contaminants, but due to fever and worsening WBC. After consultation with ID, next likely source could be CSF. Discussed with daughter and she is agreeable to lumbar puncture. Will place LP orders; she will need to hold her Eliquis likely for 2 days prior to this procedure. Critical care time 30 minutes spent reviewing charts, reviewing labs, reviewing imaging, discussion with daughter, and discussion with Dr. Elkins. 05/29/2021: Afebrile overnight, on 15 L nonrebreather. No significant improveme nt in mentation. Urine culture growing Klebsiella pneumonia; will continue to follow urine culture for sensitivities. Currently on daptomycin and cefepime. Final blood culture showing Staph capitis; repeat blood cultures pending. CSF results showed no organisms on Gram stain. 05/30/2021: Afebrile, still breathing on 15 L nonrebreather. Discussed with patient's daughter, she had a similar presentation about 1 month ago and clinical response was slow to improve about 2-3 days following her appropriate antibiotic treatment for UTI. Patient was able to follow me with her eyes yesterday and lightly squeeze my hand. This morning she is sleeping deeply; will reevaluate mental status this afternoon. Vitals/I&O Vitals/I&O: Vital Signs Date Time Temp Pulse Resp B/P (MAP) Pulse Ox O2 Delivery O2 Flow Rate FiO2 05/30/21 07:37 97.2 68 20 122/59 (80) 95 NonRebreather Mask 14.0 97.2 I & O 05/29/21 05/29/21 05/30/21 15:00 23:00 07:00 Intake Total 0 ml Balance 0 ml Physical Exam Physical Exam: GENERAL: Well-developed, well-nourished female, obtunded, does not respond to painful or verbal stimuli. HEENT: Eyes closed, unable to open mouth, on nonrebreather. NECK: Supple. LUNGS: Clear anteriorly. HEART: S1, S2. No murmurs. ABDOMEN: Soft, nontender, bowel sounds present. EXTREMITIES: No edema, no clubbing, no cyanosis. DERM: No generalized rash, some chronic venous stasis changes present over both the lower extremities, mild redness present. No open wounds noted. CENTRAL NERVOUS SYSTEM: Unable to assess. PSYCHIATRIC: Unable to assess. General: Alert, Cooperative Heart: Regular rate Lungs: Clear Abdomen: Soft, No tenderness Extremities: No clubbing, No cyanosis Skin: No rashes, No breakdown Labs Labs: Laboratory Tests Test 05/29/21 12:01 05/29/21 16:25 05/29/21 20:35 05/30/21 03:30 Glucose (Fingerstick) 110 mg/dL (70-99) 132 mg/dL (70-99) 178 mg/dL (70-99) White Blood Count 15.3 x10^3/uL (4.0-11.0) Red Blood Count 3.78 x10^6/uL (3.50-5.40) Hemoglobin 10.4 g/dL (12.0-15.5) Hematocrit 32.6 % (36.0-47.0) Mean Corpuscular Volume 86 fL (79-100) Mean Corpuscular Hemoglobin 28 pg (25-35) Mean Corpuscular Hemoglobin Concent 32 g/dL (31-37) Red Cell Distribution Width 17.4 % (11.5-14.5) Platelet Count 194 x10^3/uL (140-400) Neutrophils (%) (Auto) 76 % (31-73) Lymphocytes (%) (Auto) 12 % (24-48) Monocytes (%) (Auto) 11 % (0-9) Eosinophils (%) (Auto) 0 % (0-3) Basophils (%) (Auto) 1 % (0-3) Neutrophils # (Auto) 11.7 x10^3/uL (1.8-7.7) Lymphocytes # (Auto) 1.9 x10^3/uL (1.0-4.8) Monocytes # (Auto) 1.7 x10^3/uL (0.0-1.1) Eosinophils # (Auto) 0.0 x10^3/uL (0.0-0.7) Basophils # (Auto) 0.1 x10^3/uL (0.0-0.2) Sodium Level 148 mmol/L (136-145) Potassium Level 3.9 mmol/L (3.5-5.1) Chloride Level 114 mmol/L (98-107) Carbon Dioxide Level 31 mmol/L (21-32) Anion Gap 3 (6-14) Blood Urea Nitrogen 24 mg/dL (7-20) Creatinine 0.8 mg/dL (0.6-1.0) Estimated GFR (Cockcroft-Gault) 70.9 Glucose Level 160 mg/dL (70-99) Calcium Level 10.0 mg/dL (8.5-10.1) Test 05/30/21 07:23 Glucose (Fingerstick) 178 mg/dL (70-99) Assessment and Plan Assessmemt and Plan Problems Medical Problems: (1) Altered mental state Status: Acute (2) UTI (urinary tract infection) Status: Acute Comment Review of Relevant I have reviewed the following items venita (where applicable) has been applied. Medications: Current Medications Medications (Trade) Dose Ordered Sig/Glory Route PRN Reason Start Time Stop Time Status Last Admin Dose Admin Amino Acids/ Electrolytes/ Dextrose 1,000 ml @ 80 mls/hr [id number] IV 05/29/21 13:45 05/30/21 02:23 Justifications for Admission Other Justification Altered mental status and acute UTI AMOL DE LA VEGA MD May 30, 2021 09:16
--- NOTE | 2021-05-30 10:29 | NUR ---
Order per. Dr. Skip Elkins to consult neurology d/t altered mental status and baseline unknown. Dr. Rangel's office has been notified
[2021-05-30 10:55] VITALS: BP 148/61
[2021-05-30] MEDS: DAPTOmycin (GENERIC) IVPB 400 MG in IV NORMAL SALINE 50ML 50 ML IV SCH (12:29)
--- NOTE | 2021-05-30 12:32 | PDOC2 ---
NEUROLOGY CONSULT Date of Service DOS: DATE: 05/30/21 TIME: 12:14 Reason for Consult Reason for Consult: Altered mental status, unknown baseline Referring Physician Referring Physician: Dr. Carl Elkins History of Present Illness History of Present Illness The patient is a 70-year-old right-handed female admitted 05/26 with altered mental status from her group home. She was staring off into space and was having twitching movements. She was found to have a urinary tract infection. I last saw her in October 2019 for a subdural hematoma which did not require surgery. 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 She was here in March with altered mental status and urinary tract infection as well as positive Covid test, and had normal B12 and ammonia levels, slightly elevated TSH. Besides the subdural hematoma and stroke, she has a diagnosis of dementia, drug-induced parkinsonism, diabetic neuropathy with gait disorder, bipolar disorder, schizophrenia, and cervical dystonia. She had an unremarkable lumbar puncture on 05/28 Past Medical History Cardiovascular: AFIB, HTN, Hyperlipidemia, Other (PFO, deep vein thrombosis) CENTRAL NERVOUS SYSTEM: CVA, Other (cervical dystonia) Psych: Bipolar, Schizophrenia Musculoskeletal: low back pain Rheumatologic: Gout Infectious disease: Other (Covid March 2020) Renal/: UTI, Urinary Incontinence Endocrine: Diabetes Dermatology: Other (Decubiti) Past Surgical History Past Surgical History: Appendectomy, Cholecystectomy, Hysterectomy Family History Family History: No pertinent hx Social History Social History detention resident, ex-smoker, no alcohol Current Medications Current Medications Current Medications Ondansetron HCl (Zofran) 4 mg STK-MED ONCE .ROUTE ; Start 05/26/21 at 18:47; Stop 05/26/21 at 18:47; Status DC Ondansetron HCl (Zofran) 4 mg 1X ONCE IVP Last administered on 05/26/21at 19:09; Start 05/26/21 at 19:00; Stop 05/26/21 at 19:01; Status DC Ceftriaxone Sodium (Rocephin) 1 gm 1X ONCE IVP Last administered on 05/26/21at 20:04; Start 05/26/21 at 19:30; Stop 05/26/21 at 19:31; Status DC Acetaminophen (Tylenol) 650 mg PRN Q4HRS PRN PO TEMP OVER 100.4F OR MILD PAIN; Start 05/26/21 at 22:00 Apixaban (Eliquis) 5 mg BID PO ; Start 05/26/21 at 23:00; Stop 05/28/21 at 12:45; Status DC Aspirin (Aspirin Chewable) 81 mg DAILY PO ; Start 05/27/21 at 09:00 Atorvastatin Calcium (Lipitor) 20 mg HS PO ; Start 05/26/21 at 22:30 Cetirizine HCl (ZyrTEC) 10 mg DAILY PO ; Start 05/27/21 at 09:00 Citalopram Hydrobromide (CeleXA) 20 mg DAILY PO ; Start 05/27/21 at 09:00 Divalproex Sodium (Depakote) 500 mg BID PO ; Start 05/26/21 at 23:00; Stop 05/27/21 at 17:46; Status DC Nystatin (Nystop) 15 misbah BID TP Last administered on 05/30/21at 09:00; Start 05/26/21 at 23:00 Pantoprazole Sodium (Protonix) 40 mg DAILYAC PO ; Start 05/27/21 at 07:30 Polyethylene Glycol (miraLAX PACKET) 17 gm DAILY PO ; Start 05/27/21 at 09:00 Info (Anti-Coagulation Monitoring By Pharmacy) 1 each PRN DAILY PRN MC PER PROTOCOL; Start 05/26/21 at 22:00; Stop 05/28/21 at 12:45; Status DC Ceftriaxone Sodium (Rocephin) 1 gm Q24H IVP Last administered on 05/27/21at 19:50; Start 05/27/21 at 20:00; Stop 05/28/21 at 11:40; Status DC Ondansetron HCl (Zofran) 4 mg PRN Q6HRS PRN IVP NAUSEA/VOMITING 1ST CHOICE Last administered on 05/27/21at 02:29; Start 05/26/21 at 22:15 Calcium Carbonate/ Glycine (Tums) 500 mg PRN Q3HRS PRN PO UPSET STOMACH; Start 05/26/21 at 22:15 Info (Non-Icu Electrolyte Protocol) 1 ea PRN DAILY PRN MC SEE COMMENTS; Start 05/26/21 at 22:15 Acetaminophen (Tylenol) 650 mg PRN Q6HRS PRN PO Headaches, Temp > 101.5F; Start 05/26/21 at 22:15; Stop 05/26/21 at 23:29; Status DC Senna/Docusate Sodium (Senna Plus) 1 tab BID PO ; Start 05/26/21 at 23:00 Heparin Sodium (Porcine) (Heparin Sodium) 5,000 unit Q8HRS SQ ; Start 05/27/21 at 06:00; Status UNV Sodium Chloride 1,000 ml @ 100 mls/hr Q10H IV Last administered on 05/29/21at 04:32; Start 05/27/21 at 12:45; Stop 05/29/21 at 13:37; Status DC Insulin Human Lispro (HumaLOG) 0-7 UNITS TIDWMEALS SQ Last administered on 05/30/21at 08:27; Start 05/27/21 at 17:00 Dextrose (Dextrose 50%-Water Syringe) 12.5 gm PRN Q15MIN PRN IV SEE COMMENTS; Start 05/27/21 at 12:45; Status Cancel Dextrose (Dextrose 50%-Water Syringe) 12.5 gm PRN Q15MIN PRN IV SEE COMMENTS; Start 05/27/21 at 12:45 Acetaminophen (Tylenol Supp) 650 mg PRN Q6HRS PRN FL MILD PAIN / TEMP > 100.3'F Last administered on 05/28/21at 06:05; Start 05/27/21 at 16:45 Valproic Acid 500 mg/Dextrose 55 ml @ 55 mls/hr Q12HR IV Last administered on 05/30/21at 08:04; Start 05/27/21 at 18:30 Daptomycin 400 mg/ Sodium Chloride 50 ml @ 100 mls/hr Q24H IV Last administered on 05/29/21at 12:51; Start 05/28/21 at 12:30 Cefepime HCl (Maxipime) 2 gm Q8HRS IVP Last administered on 05/30/21at 06:00; Start 05/28/21 at 14:00 Lidocaine HCl (Lidocaine 1% 20ml Vial) 20 ml STK-MED ONCE .ROUTE ; Start 05/28/21 at 12:51; Stop 05/28/21 at 12:51; Status DC Heparin Sodium (Porcine) (Heparin Sodium) 5,000 unit Q12HR SQ Last administered on 05/30/21at 08:01; Start 05/29/21 at 09:00 Sodium Chloride 1,000 ml @ 75 mls/hr 1X ONCE IV ; Start 05/29/21 at 13:45; Stop 05/29/21 at 13:45; Status DC Amino Acids/ Electrolytes/ Dextrose 1,000 ml @ 80 mls/hr [id number] IV Last administered on 05/30/21at 02:23; Start 05/29/21 at 13:45 Active Scripts Active Augmentin 250-62.5 Mg/5 Ml (Amoxicillin/Potassium Clav) 250 Mg/5 Ml Susp.recon 10 Ml PO BID 7 Days Vitamin D3 (Vitamin D) 25 Mcg Tablet 1,000 Unit PO DAILY 30 Days Vitamin C (Ascorbic Acid) 1,000 Mg Tablet 1,000 Mg PO TID 30 Days Vitamin B-1 (Thiamine Mononitrate) 100 Mg Tablet 100 Mg PO DAILY 30 Days Admelog (Insulin Lispro) 100 Unit/1 Ml Vial 0 Units SQ TIDWMEALS 14 Days Culturelle (Lactobacillus Rhamnosus Gg) 1 Each Cap.sprink 1 Cap PO BID 30 Days Pantoprazole Sodium (Pantoprazole Sodium) 40 Mg Tablet.dr 40 Mg PO DAILYAC 30 Days Zinc Sulfate 50 Mg Capsule 220 Mg PO DAILY 30 Days Acetaminophen 325 Mg Tablet 650 Mg PO PRN Q4HRS PRN 30 Days Reported Zyrtec (Cetirizine Hcl) 10 Mg Tablet 10 Mg PO DAILY Ondansetron Hcl 4 Mg Tablet 4 Mg PO BID PRN Polyethylene Glycol 3350 2,500 Gm Powder 17 Gm PO DAILY Depakote Er (Divalproex Sodium) 500 Mg Tab.er.24h 500 Mg PO BID Colace (Docusate Sodium) 100 Mg Capsule 100 Mg PO BID Celexa (Citalopram Hydrobromide) 20 Mg Tablet 20 Mg PO DAILY Aspirin 81 Mg Tab.chew 81 Mg PO DAILY Eliquis (Apixaban) 5 Mg Tablet 5 Mg PO BID Lantus Solostar (Insulin Glargine,Hum.rec.anlog) 100 Unit/1 Ml Insuln.pen 25 Unit SQ QHS Nystatin 15 Gm Powder 15 Gm TP BID Lipitor (Atorvastatin Calcium) 20 Mg Tablet 20 Mg PO HS Novolog Flexpen (Insulin Aspart) 100 Unit/1 Ml Insuln.pen 16 Unit SQ TIDWMEALS Allergies Allergies: Coded Allergies: No Known Drug Allergies (Unverified , 07/04/14) ROS Review of System Unobtainable Physical Exam Physical Examination General: Well-developed, well-nourished, white female, in no acute distress HEENT: Normocephalic andatraumatic.Temporal arteriespulsatile and nontender. Neck: Supple without bruit, no meningismus Musculoskeletal: Stability:see neurologic. Gait exam:see neurologic. Tone:see neurologic.Strength:see neurologic. Neurological: Mental Status:orientation, memory, attention span/concentration, language, fund of knowledge: On oxygen, moans a little bit to pain, otherwise nonverbal and unresponsive. Cranial Nerves:Pupils equal and reactive to light, extraocular movements areintact. There is no facial asymmetry. All other cranial related problems are negative except as mentioned before.Reflexes:1+ and symmetric with silent plantar responses. Motor:Withdraws to pain in all 4 extremities. Coordination and gait:Not testable. Sensory:Not testable. Vitals VITALS Vital Signs Date Time Temp Pulse Resp B/P (MAP) Pulse Ox O2 Delivery O2 Flow Rate FiO2 05/30/21 10:55 97.4 71 18 148/61 (90) 98 NonRebreather Mask 14.0 97.4 Labs Labs Laboratory Tests Test 05/28/21 13:00 05/28/21 13:35 05/28/21 16:58 05/28/21 19:21 Prothrombin Time 14.0 SEC (11.7-14.0) Prothromb Time International Ratio 1.1 (0.8-1.1) Activated Partial Thromboplast Time 34 SEC (24-38) CSF Tube Number 3 CSF Volume 3.0 CSF Color Colorless CSF Clarity Clear CSF WBC 5 /cmm (Not Established) CSF RBC 6 /cmm (Not Established) CSF Glucose 89 mg/dL (37-70) CSF Total Protein 42.7 mg/dL (15.0-45.0) Glucose (Fingerstick) 141 mg/dL (70-99) 137 mg/dL (70-99) Test 05/29/21 07:19 05/29/21 07:35 05/29/21 12:01 05/29/21 16:25 Glucose (Fingerstick) 114 mg/dL (70-99) 110 mg/dL (70-99) 132 mg/dL (70-99) White Blood Count 13.6 x10^3/uL (4.0-11.0) Red Blood Count 3.47 x10^6/uL (3.50-5.40) Hemoglobin 9.3 g/dL (12.0-15.5) Hematocrit 30.5 % (36.0-47.0) Mean Corpuscular Volume 88 fL (79-100) Mean Corpuscular Hemoglobin 27 pg (25-35) Mean Corpuscular Hemoglobin Concent 31 g/dL (31-37) Red Cell Distribution Width 18.0 % (11.5-14.5) Platelet Count 183 x10^3/uL (140-400) Neutrophils (%) (Auto) 75 % (31-73) Lymphocytes (%) (Auto) 13 % (24-48) Monocytes (%) (Auto) 11 % (0-9) Eosinophils (%) (Auto) 0 % (0-3) Basophils (%) (Auto) 1 % (0-3) Neutrophils # (Auto) 10.3 x10^3/uL (1.8-7.7) Lymphocytes # (Auto) 1.7 x10^3/uL (1.0-4.8) Monocytes # (Auto) 1.5 x10^3/uL (0.0-1.1) Eosinophils # (Auto) 0.0 x10^3/uL (0.0-0.7) Basophils # (Auto) 0.1 x10^3/uL (0.0-0.2) Sodium Level 149 mmol/L (136-145) Potassium Level 3.7 mmol/L (3.5-5.1) Chloride Level 116 mmol/L (98-107) Carbon Dioxide Level 30 mmol/L (21-32) Anion Gap 3 (6-14) Blood Urea Nitrogen 19 mg/dL (7-20) Creatinine 0.8 mg/dL (0.6-1.0) Estimated GFR (Cockcroft-Gault) 70.9 Glucose Level 109 mg/dL (70-99) Calcium Level 10.1 mg/dL (8.5-10.1) Creatine Kinase 190 U/L (26-192) Test 05/29/21 20:35 05/30/21 03:30 05/30/21 07:23 05/30/21 11:50 Glucose (Fingerstick) 178 mg/dL (70-99) 178 mg/dL (70-99) 131 mg/dL (70-99) White Blood Count 15.3 x10^3/uL (4.0-11.0) Red Blood Count 3.78 x10^6/uL (3.50-5.40) Hemoglobin 10.4 g/dL (12.0-15.5) Hematocrit 32.6 % (36.0-47.0) Mean Corpuscular Volume 86 fL (79-100) Mean Corpuscular Hemoglobin 28 pg (25-35) Mean Corpuscular Hemoglobin Concent 32 g/dL (31-37) Red Cell Distribution Width 17.4 % (11.5-14.5) Platelet Count 194 x10^3/uL (140-400) Neutrophils (%) (Auto) 76 % (31-73) Lymphocytes (%) (Auto) 12 % (24-48) Monocytes (%) (Auto) 11 % (0-9) Eosinophils (%) (Auto) 0 % (0-3) Basophils (%) (Auto) 1 % (0-3) Neutrophils # (Auto) 11.7 x10^3/uL (1.8-7.7) Lymphocytes # (Auto) 1.9 x10^3/uL (1.0-4.8) Monocytes # (Auto) 1.7 x10^3/uL (0.0-1.1) Eosinophils # (Auto) 0.0 x10^3/uL (0.0-0.7) Basophils # (Auto) 0.1 x10^3/uL (0.0-0.2) Sodium Level 148 mmol/L (136-145) Potassium Level 3.9 mmol/L (3.5-5.1) Chloride Level 114 mmol/L (98-107) Carbon Dioxide Level 31 mmol/L (21-32) Anion Gap 3 (6-14) Blood Urea Nitrogen 24 mg/dL (7-20) Creatinine 0.8 mg/dL (0.6-1.0) Estimated GFR (Cockcroft-Gault) 70.9 Glucose Level 160 mg/dL (70-99) Calcium Level 10.0 mg/dL (8.5-10.1) Laboratory Tests Test 10/27/21 16:25 05/29/21 20:35 05/30/21 03:30 05/30/21 07:23 Glucose (Fingerstick) 132 mg/dL (70-99) 178 mg/dL (70-99) 178 mg/dL (70-99) White Blood Count 15.3 x10^3/uL (4.0-11.0) Red Blood Count 3.78 x10^6/uL (3.50-5.40) Hemoglobin 10.4 g/dL (12.0-15.5) Hematocrit 32.6 % (36.0-47.0) Mean Corpuscular Volume 86 fL (79-100) Mean Corpuscular Hemoglobin 28 pg (25-35) Mean Corpuscular Hemoglobin Concent 32 g/dL (31-37) Red Cell Distribution Width 17.4 % (11.5-14.5) Platelet Count 194 x10^3/uL (140-400) Neutrophils (%) (Auto) 76 % (31-73) Lymphocytes (%) (Auto) 12 % (24-48) Monocytes (%) (Auto) 11 % (0-9) Eosinophils (%) (Auto) 0 % (0-3) Basophils (%) (Auto) 1 % (0-3) Neutrophils # (Auto) 11.7 x10^3/uL (1.8-7.7) Lymphocytes # (Auto) 1.9 x10^3/uL (1.0-4.8) Monocytes # (Auto) 1.7 x10^3/uL (0.0-1.1) Eosinophils # (Auto) 0.0 x10^3/uL (0.0-0.7) Basophils # (Auto) 0.1 x10^3/uL (0.0-0.2) Sodium Level 148 mmol/L (136-145) Potassium Level 3.9 mmol/L (3.5-5.1) Chloride Level 114 mmol/L (98-107) Carbon Dioxide Level 31 mmol/L (21-32) Anion Gap 3 (6-14) Blood Urea Nitrogen 24 mg/dL (7-20) Creatinine 0.8 mg/dL (0.6-1.0) Estimated GFR (Cockcroft-Gault) 70.9 Glucose Level 160 mg/dL (70-99) Calcium Level 10.0 mg/dL (8.5-10.1) Test 05/30/21 11:50 Glucose (Fingerstick) 131 mg/dL (70-99) Images Images CT Head without IV contrast, 05/26/2021 7:28 PM CLINICAL HISTORY: Reason: mental status change COMPARISON: 03/15/2021 FINDINGS: Exam is limited by motion artifact and suboptimal positioning. Within these constraints: There is no evidence of hemorrhage, mass or extra-axial fluid collection. Encephalomalacia left occipital region. Subcortical and periventricular as well as deep white matter foci of hypoattenuation likely changes of chronic small vessel disease. Otherwise, Vila-white differentiation is maintained with no evidence of edema. There is no mass effect or shift of the intracranial structures. The ventricles and cerebral sulci are prominent for the patients stated age consistent with generalized cerebral volume loss. The cerebellum and brainstem are unremarkable. The calvarium demonstrates no evidence of fracture or focal lesion. There is normal aeration of the visualized paranasal sinuses and mastoid air cells. The visualized portions of the orbits are normal. Atherosclerotic calcifications of the intracranial internal carotid and vertebral arteries is seen. IMPRESSION: 1. No evidence for acute intracranial process. 2. White matter changes likely chronic small vessel disease. 3. 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 Assessment/Plan Assessment/Plan Impression: Metabolic encephalopathy in dementia, urinary tract infection, sepsis and fevers, respiratory failure on nonrebreather mask, negative lumbar puncture History of subdural hematoma and stroke, drug-induced parkinsonism, diabetic neuropathy with gait disorder, bipolar disorder, schizophrenia, and cervical dystonia. History of diabetes and cardiac disease Recommendations: It looks like it took the patient a while to wake up in the last admission, but she has underlying dementia and history of stroke, overall prognosis is poor. Continue to treat medical diseases I see she is a full code but I think she has an out of hospital DNR, nurses checking I also left a message with the patient's daughter, it would be best if we could get her DO NOT RESUSCITATE. No additional neurological tests required, in particular I am holding off on electroencephalogram and MRI. Thank you for letting me help with the patient's care. ZAYRA FUNG MD May 30, 2021 12:32
[2021-05-30 15:15] VITALS: BP 162/69
[2021-05-30 19:00] VITALS: BP 159/81
[2021-05-30] MEDS: ATORVASTATIN CALCIUM 20 MG TABLET PO SCH (21:00)
[2021-05-30 23:00] VITALS: BP 182/71
[2021-05-31] VITALS (7 sets, daily range): BP systolic 146–192; BP diastolic 65–107
[2021-05-31] MEDS: AA 4.25 %/CALCIUM/LYTES/D5W 1,000 ML IV SCH ×2 (04:30→14:36)
[2021-05-31] MEDS: CEFEPIME HCL IV Push 2 GM VIAL. IVP SCH ×3 (06:14→20:40)
[2021-05-31] MEDS: PANTOPRAZOLE 40 MG TABLET.DR. PO SCH (06:53)
[2021-05-31] MEDS: SENNOSIDES/DOCUSATE 8.6/50MG TABLET. PO SCH ×2 (06:54→20:18)
[2021-05-31] MEDS: POLYETHYLENE GLYCOL 3350 17 GM PACKET. PO SCH (06:54)
[2021-05-31] MEDS: ASPIRIN CHEWABLE 81 MG TABLET. PO SCH (06:54)
[2021-05-31] MEDS: CETIRIZINE HCL 10 MG TABLET. PO SCH (06:54)
[2021-05-31] MEDS: CITALOPRAM 20 MG TABLET. PO SCH (06:54)
[2021-05-31 07:36] LABS: BASO % 0 % (0-3); EOS % 0 % (0-3); HEMATOCRIT 29.4 % (36.0-47.0); HEMOGLOBIN 8.9 g/dL (12.0-15.5); LYMPH # 1.9 x10^3/uL (1.0-4.8); LYMPH % 18 % (24-48); MEAN CORPUSCULAR HEMOGLOBIN 26 pg (25-35); MEAN CORPUSCULAR HGB CONC 30 g/dL (31-37); MEAN CORPUSCULAR VOLUME 86 fL (79-100); MONO # 1.3 x10^3/uL (0.0-1.1); MONO % 13 % (0-9); NEUT # 7.4 x10^3/uL (1.8-7.7); NEUT % 69 % (31-73); PLATELET COUNT 197 x10^3/uL (140-400); RED BLOOD COUNT 3.42 x10^6/uL (3.50-5.40); RED CELL DISTRIBUTION WIDTH 17.5 % (11.5-14.5); WHITE BLOOD COUNT 10.7 x10^3/uL (4.0-11.0)
[2021-05-31 07:57] LABS: CALCIUM 10.3 mg/dL (8.5-10.1); CREATININE 0.8 mg/dL (0.6-1.0); GFR 70.9; POTASSIUM 4.3 mmol/L (3.5-5.1)
[2021-05-31] MEDS: INSULIN LISPRO 300 UNITS/3 ML VIAL. SQ SCH ×3 (08:00→17:00)
--- NOTE | 2021-05-31 08:25 | PDOC ---
Infectious Disease Note Subjective: Subjective Patient on nonrebreather Still does not open eyes Winces on deep painful stimuli Afebrile last 24 hours Vital Signs: Vital Signs Vital Signs Date Time Temp Pulse Resp B/P (MAP) Pulse Ox O2 Delivery O2 Flow Rate FiO2 05/31/21 07:31 Non-Rebreather 14.0 05/31/21 07:00 98.6 78 18 192/73 (112) 96 98.6 Physical Exam: PHYSICAL EXAM GENERAL: Well-developed, well-nourished female, obtunded, winces just on deep painful stimuli Nonrebreather HEENT: Eyes closed, unable to open mouth, on nonrebreather. NECK: Supple. LUNGS: Clear anteriorly. HEART: S1, S2. No murmurs. ABDOMEN: Soft, nontender, bowel sounds present. EXTREMITIES: No edema, no clubbing, no cyanosis. DERM: No generalized rash, some chronic venous stasis changes present over both the lower extremities, mild redness present. No open wounds noted. CENTRAL NERVOUS SYSTEM: Unable to assess. PSYCHIATRIC: Unable to assess. Medications: Inpatient Meds: Medications reviewed. Labs: Lab Laboratory Tests Test 05/30/21 11:50 05/30/21 16:49 05/30/21 20:04 05/31/21 06:20 Glucose (Fingerstick) 131 mg/dL (70-99) 171 mg/dL (70-99) 146 mg/dL (70-99) White Blood Count 10.7 x10^3/uL (4.0-11.0) Red Blood Count 3.42 x10^6/uL (3.50-5.40) Hemoglobin 8.9 g/dL (12.0-15.5) Hematocrit 29.4 % (36.0-47.0) Mean Corpuscular Volume 86 fL (79-100) Mean Corpuscular Hemoglobin 26 pg (25-35) Mean Corpuscular Hemoglobin Concent 30 g/dL (31-37) Red Cell Distribution Width 17.5 % (11.5-14.5) Platelet Count 197 x10^3/uL (140-400) Neutrophils (%) (Auto) 69 % (31-73) Lymphocytes (%) (Auto) 18 % (24-48) Monocytes (%) (Auto) 13 % (0-9) Eosinophils (%) (Auto) 0 % (0-3) Basophils (%) (Auto) 0 % (0-3) Neutrophils # (Auto) 7.4 x10^3/uL (1.8-7.7) Lymphocytes # (Auto) 1.9 x10^3/uL (1.0-4.8) Monocytes # (Auto) 1.3 x10^3/uL (0.0-1.1) Eosinophils # (Auto) 0.0 x10^3/uL (0.0-0.7) Basophils # (Auto) 0.0 x10^3/uL (0.0-0.2) Sodium Level 146 mmol/L (136-145) Potassium Level 4.3 mmol/L (3.5-5.1) Chloride Level 113 mmol/L (98-107) Carbon Dioxide Level 28 mmol/L (21-32) Anion Gap 5 (6-14) Blood Urea Nitrogen 27 mg/dL (7-20) Creatinine 0.8 mg/dL (0.6-1.0) Estimated GFR (Cockcroft-Gault) 70.9 Glucose Level 165 mg/dL (70-99) Calcium Level 10.3 mg/dL (8.5-10.1) Test 05/31/21 07:21 Glucose (Fingerstick) 166 mg/dL (70-99) Objective: Assessment: 1. Encephalopathy with history of cerebrovascular accident, aphasia at baseline, unclear. Etiology appears more metabolic. Lumbar puncture negative, Gram stain negative 2. Sepsis. Appears multifactorial 3. Gram-positive bacteremia in 1/4 bottles present on admission,Coagulase- negative staph likely contaminant 4. Fever, T-max 102.5 despite pathogen directed therapy. Fever pattern improving 5. Leukocytosis. 6. retirement resident. 7. Urinary tract infection. Urine culture positive for Klebsiella pneumoniae. 8. Acute hypoxic respiratory failure requiring nonrebreather. 9. Diabetes mellitus. 10. History of bipolar disorder. Per team patient remains full code Plan: Plan of Care Lumbar puncture noted. Neurology input appreciated Continue cefepime DC daptomycin CT abdomen and pelvis reviewed Maintain aspiration precaution Repeat blood cultures Follow-up labs and cultures Continue supportive care Prognosis guarded Discussed with nursing staff ELZBIETA WARREN MD May 31, 2021 08:25
--- NOTE | 2021-05-31 08:36 | PDOC ---
[facility] PROGRESS NOTE Date of Service DOS: DATE: 05/31/21 TIME: 08:33 Chief Complaint Chief Complaint UTI Weakness Baseline altered mental status History of type 2 diabetes Hypertension History of Bipolar -Altered mental status at living facility -Found to have UTI. Received Rocephin emergency room will continue this for now -DVT prophylaxis -PT OT ordered -Home meds resumed as indicated -We will start sliding scale for blood sugar adjust as needed -Diet as tolerated History of Present Illness History of Present Illness Patient unable to provide history history from emergency room. 70-year-old female who is a assisted resident and is baseline nonverbal from previous stroke patient presents to the emergency department with mental status change at her assisted. Reportedly she was seen staring off into space for more time than usual and had twitching movements of her face. She was then sent to the ER for further evaluation. She apparently had a urinalysis done at the nursing facility which showed infection but she was not treated for this infection yet. Blood sugar in the field was 120. The patient is unable to provide any history secondary to her baseline mental status. There is no concrete seizure-like activity seen at the nursing facility. 05/27: Low-grade fever overnight (T-max 99.9 F), breathing on 3 L nasal cannula. Continue Rocephin 1 g daily. Will continue to follow urine culture. Unknown baseline mental status, but once we have results of urine culture she can be discharged to complete her antibiotic course as outpatient. If no improvement in her mental status after completion of antibiotic treatment with appropriate sensitivities, will consult neurology. 05/28: Febrile overnight, T-max 102.5 F. Currently on 14 L nonrebreather. No urine cultures to date. Today should be her third dose of Rocephin. Will obtain repeat UA with culture, however concerned that she has been on antibiotics for the past 2 days. Chest x-ray yesterday showed no acute pulmonary finding. Blood cultures yesterday showed gram-positive cocci in clusters, suggestive of staph in 1 of 4 bottles. Initially thought blood cultures may be contaminants, but due to fever and worsening WBC. After consultation with ID, next likely source could be CSF. Discussed with daughter and she is agreeable to lumbar puncture. Will place LP orders; she will need to hold her Eliquis likely for 2 days prior to this procedure. Critical care time 30 minutes spent reviewing charts, reviewing labs, reviewing imaging, discussion with daughter, and discussion with Dr. Elkins. 05/29/2021: Afebrile overnight, on 15 L nonrebreather. No significant improveme nt in mentation. Urine culture growing Klebsiella pneumonia; will continue to follow urine culture for sensitivities. Currently on daptomycin and cefepime. Final blood culture showing Staph capitis; repeat blood cultures pending. CSF results showed no organisms on Gram stain. 05/30/2021: Afebrile, still breathing on 15 L nonrebreather. Discussed with patient's daughter, she had a similar presentation about 1 month ago and clinical response was slow to improve about 2-3 days following her appropriate antibiotic treatment for UTI. Patient was able to follow me with her eyes yesterday and lightly squeeze my hand. This morning she is sleeping deeply; will reevaluate mental status this afternoon. 05/31/2021: See breathing on 14 L nonrebreather. Upon review of her paperwork for medical [facility] it is noted that patient is DNR; will make appropriate changes in the EMR. Consultation placed to neurology given appropriate medical treatment and improvement in mental status. Per Dr. Rangel, no additional neurologic tests required at this time, with taper off Depakote. Continue to monitor for clinical recovery. Vitals/I&O Vitals/I&O: Vital Signs Date Time Temp Pulse Resp B/P (MAP) Pulse Ox O2 Delivery O2 Flow Rate FiO2 05/31/21 07:31 Non-Rebreather 14.0 05/31/21 07:00 98.6 78 18 192/73 (112) 96 98.6 I & O 05/30/21 05/30/21 05/31/21 15:00 23:00 07:00 Intake Total 100 ml 650 ml 1920 ml Balance 100 ml 650 ml 1920 ml Physical Exam Physical Exam: GENERAL: Well-developed, well-nourished female, obtunded, winces just on deep painful stimuli Nonrebreather HEENT: Eyes closed, unable to open mouth, on nonrebreather. NECK: Supple. LUNGS: Clear anteriorly. HEART: S1, S2. No murmurs. ABDOMEN: Soft, nontender, bowel sounds present. EXTREMITIES: No edema, no clubbing, no cyanosis. DERM: No generalized rash, some chronic venous stasis changes present over both the lower extremities, mild redness present. No open wounds noted. CENTRAL NERVOUS SYSTEM: Unable to assess. PSYCHIATRIC: Unable to assess. General: Alert, Cooperative Heart: Regular rate Lungs: Clear Abdomen: Soft, No tenderness Extremities: No clubbing, No cyanosis Skin: No rashes, No breakdown Labs Labs: Laboratory Tests Test 05/30/21 11:50 05/30/21 16:49 05/30/21 20:04 05/31/21 06:20 Glucose (Fingerstick) 131 mg/dL (70-99) 171 mg/dL (70-99) 146 mg/dL (70-99) White Blood Count 10.7 x10^3/uL (4.0-11.0) Red Blood Count 3.42 x10^6/uL (3.50-5.40) Hemoglobin 8.9 g/dL (12.0-15.5) Hematocrit 29.4 % (36.0-47.0) Mean Corpuscular Volume 86 fL (79-100) Mean Corpuscular Hemoglobin 26 pg (25-35) Mean Corpuscular Hemoglobin Concent 30 g/dL (31-37) Red Cell Distribution Width 17.5 % (11.5-14.5) Platelet Count 197 x10^3/uL (140-400) Neutrophils (%) (Auto) 69 % (31-73) Lymphocytes (%) (Auto) 18 % (24-48) Monocytes (%) (Auto) 13 % (0-9) Eosinophils (%) (Auto) 0 % (0-3) Basophils (%) (Auto) 0 % (0-3) Neutrophils # (Auto) 7.4 x10^3/uL (1.8-7.7) Lymphocytes # (Auto) 1.9 x10^3/uL (1.0-4.8) Monocytes # (Auto) 1.3 x10^3/uL (0.0-1.1) Eosinophils # (Auto) 0.0 x10^3/uL (0.0-0.7) Basophils # (Auto) 0.0 x10^3/uL (0.0-0.2) Sodium Level 146 mmol/L (136-145) Potassium Level 4.3 mmol/L (3.5-5.1) Chloride Level 113 mmol/L (98-107) Carbon Dioxide Level 28 mmol/L (21-32) Anion Gap 5 (6-14) Blood Urea Nitrogen 27 mg/dL (7-20) Creatinine 0.8 mg/dL (0.6-1.0) Estimated GFR (Cockcroft-Gault) 70.9 Glucose Level 165 mg/dL (70-99) Calcium Level 10.3 mg/dL (8.5-10.1) Test 05/31/21 07:21 Glucose (Fingerstick) 166 mg/dL (70-99) Assessment and Plan Assessmemt and Plan Problems Medical Problems: (1) Altered mental state Status: Acute (2) UTI (urinary tract infection) Status: Acute Comment Review of Relevant I have reviewed the following items venita (where applicable) has been applied. Justifications for Admission Other Justification Altered mental status and acute UTI AMOL DE LA VEGA MD May 31, 2021 08:36
[2021-05-31] MEDS: NYSTATIN TOPICAL POWDER 15GM BOTTLE. TP SCH ×2 (08:40→21:00)
[2021-05-31] MEDS: VALPROIC ACID (AS SODIUM SALT) 500 MG in IV DEXTROSE 5% 50 ML IV SCH (08:41)
[2021-05-31] MEDS: hydrALAZINE 20 MG/ML VIAL. IVP PRN ×2 (08:44→14:54)
[2021-05-31] MEDS: HEPARIN for SUB-Q USE 5,000 UNIT/ML VIAL. SQ SCH ×2 (08:53→20:55)
--- NOTE | 2021-05-31 08:53 | PDOC ---
PROGRESS NOTES Date of Service DATE: 05/31/21 TIME: 08:51 Assessment Problems Medical Problems: (1) Altered mental state Status: Acute (2) UTI (urinary tract infection) Status: Acute Metabolic encephalopathy in dementia, urinary tract infection, sepsis and fevers, respiratory failure on nonrebreather mask, negative lumbar puncture History of subdural hematoma and stroke, drug-induced parkinsonism, diabetic neuropathy with gait disorder, bipolar disorder, schizophrenia, and cervical dys scotty. History of diabetes and cardiac disease Plan It looks like it took the patient a while to wake up in the last admission, but she has underlying dementia and history of stroke, overall prognosis is poor. Continue to treat medical diseases I confirm that she is DNR at the alf but she was written for full code here I left a message with the patient's daughter on 05/30 No additional neurological tests required, in particular I am holding off on electroencephalogram and MRI. I am going to taper off the Depakote, it is for bipolar disorder, and she certainly does not need it now. Subjective None Objective Vital Signs Date Time Temp Pulse Resp B/P (MAP) Pulse Ox O2 Delivery O2 Flow Rate FiO2 05/31/21 07:31 Non-Rebreather 14.0 05/31/21 07:00 98.6 78 18 192/73 (112) 96 98.6 Intake and Output 05/31/21 07:00 Intake Total 2670 ml Balance 2670 ml Intake Oral 0 ml IV Total 1710 ml Other 960 ml # Voids 2 PHYSICAL EXAM On rebreather mask, eyes are slightly open, no response to voice, slight withdrawal to pain PERRL. EOMI. CN: no focal findings. Muscle tone: normal. Muscle strength: Slight withdrawal to pain DTR: 1+ Plantar reflex: Silent Gait: not examined in bed. Sensory exam: Not cooperative. Cerebellar: Not cooperative Review of Relevant I have reviewed the following items venita (where applicable) has been applied. Labs Laboratory Tests Test 05/29/21 12:01 05/29/21 16:25 05/29/21 20:35 05/30/21 03:30 Glucose (Fingerstick) 110 mg/dL (70-99) 132 mg/dL (70-99) 178 mg/dL (70-99) White Blood Count 15.3 x10^3/uL (4.0-11.0) Red Blood Count 3.78 x10^6/uL (3.50-5.40) Hemoglobin 10.4 g/dL (12.0-15.5) Hematocrit 32.6 % (36.0-47.0) Mean Corpuscular Volume 86 fL (79-100) Mean Corpuscular Hemoglobin 28 pg (25-35) Mean Corpuscular Hemoglobin Concent 32 g/dL (31-37) Red Cell Distribution Width 17.4 % (11.5-14.5) Platelet Count 194 x10^3/uL (140-400) Neutrophils (%) (Auto) 76 % (31-73) Lymphocytes (%) (Auto) 12 % (24-48) Monocytes (%) (Auto) 11 % (0-9) Eosinophils (%) (Auto) 0 % (0-3) Basophils (%) (Auto) 1 % (0-3) Neutrophils # (Auto) 11.7 x10^3/uL (1.8-7.7) Lymphocytes # (Auto) 1.9 x10^3/uL (1.0-4.8) Monocytes # (Auto) 1.7 x10^3/uL (0.0-1.1) Eosinophils # (Auto) 0.0 x10^3/uL (0.0-0.7) Basophils # (Auto) 0.1 x10^3/uL (0.0-0.2) Sodium Level 148 mmol/L (136-145) Potassium Level 3.9 mmol/L (3.5-5.1) Chloride Level 114 mmol/L (98-107) Carbon Dioxide Level 31 mmol/L (21-32) Anion Gap 3 (6-14) Blood Urea Nitrogen 24 mg/dL (7-20) Creatinine 0.8 mg/dL (0.6-1.0) Estimated GFR (Cockcroft-Gault) 70.9 Glucose Level 160 mg/dL (70-99) Calcium Level 10.0 mg/dL (8.5-10.1) Test 05/30/21 07:23 05/30/21 11:50 05/30/21 16:49 05/30/21 20:04 Glucose (Fingerstick) 178 mg/dL (70-99) 131 mg/dL (70-99) 171 mg/dL (70-99) 146 mg/dL (70-99) Test 05/31/21 06:20 05/31/21 07:21 White Blood Count 10.7 x10^3/uL (4.0-11.0) Red Blood Count 3.42 x10^6/uL (3.50-5.40) Hemoglobin 8.9 g/dL (12.0-15.5) Hematocrit 29.4 % (36.0-47.0) Mean Corpuscular Volume 86 fL (79-100) Mean Corpuscular Hemoglobin 26 pg (25-35) Mean Corpuscular Hemoglobin Concent 30 g/dL (31-37) Red Cell Distribution Width 17.5 % (11.5-14.5) Platelet Count 197 x10^3/uL (140-400) Neutrophils (%) (Auto) 69 % (31-73) Lymphocytes (%) (Auto) 18 % (24-48) Monocytes (%) (Auto) 13 % (0-9) Eosinophils (%) (Auto) 0 % (0-3) Basophils (%) (Auto) 0 % (0-3) Neutrophils # (Auto) 7.4 x10^3/uL (1.8-7.7) Lymphocytes # (Auto) 1.9 x10^3/uL (1.0-4.8) Monocytes # (Auto) 1.3 x10^3/uL (0.0-1.1) Eosinophils # (Auto) 0.0 x10^3/uL (0.0-0.7) Basophils # (Auto) 0.0 x10^3/uL (0.0-0.2) Sodium Level 146 mmol/L (136-145) Potassium Level 4.3 mmol/L (3.5-5.1) Chloride Level 113 mmol/L (98-107) Carbon Dioxide Level 28 mmol/L (21-32) Anion Gap 5 (6-14) Blood Urea Nitrogen 27 mg/dL (7-20) Creatinine 0.8 mg/dL (0.6-1.0) Estimated GFR (Cockcroft-Gault) 70.9 Glucose Level 165 mg/dL (70-99) Calcium Level 10.3 mg/dL (8.5-10.1) Glucose (Fingerstick) 166 mg/dL (70-99) Laboratory Tests Test 05/30/21 11:50 05/30/21 16:49 05/30/21 20:04 05/31/21 06:20 Glucose (Fingerstick) 131 mg/dL (70-99) 171 mg/dL (70-99) 146 mg/dL (70-99) White Blood Count 10.7 x10^3/uL (4.0-11.0) Red Blood Count 3.42 x10^6/uL (3.50-5.40) Hemoglobin 8.9 g/dL (12.0-15.5) Hematocrit 29.4 % (36.0-47.0) Mean Corpuscular Volume 86 fL (79-100) Mean Corpuscular Hemoglobin 26 pg (25-35) Mean Corpuscular Hemoglobin Concent 30 g/dL (31-37) Red Cell Distribution Width 17.5 % (11.5-14.5) Platelet Count 197 x10^3/uL (140-400) Neutrophils (%) (Auto) 69 % (31-73) Lymphocytes (%) (Auto) 18 % (24-48) Monocytes (%) (Auto) 13 % (0-9) Eosinophils (%) (Auto) 0 % (0-3) Basophils (%) (Auto) 0 % (0-3) Neutrophils # (Auto) 7.4 x10^3/uL (1.8-7.7) Lymphocytes # (Auto) 1.9 x10^3/uL (1.0-4.8) Monocytes # (Auto) 1.3 x10^3/uL (0.0-1.1) Eosinophils # (Auto) 0.0 x10^3/uL (0.0-0.7) Basophils # (Auto) 0.0 x10^3/uL (0.0-0.2) Sodium Level 146 mmol/L (136-145) Potassium Level 4.3 mmol/L (3.5-5.1) Chloride Level 113 mmol/L (98-107) Carbon Dioxide Level 28 mmol/L (21-32) Anion Gap 5 (6-14) Blood Urea Nitrogen 27 mg/dL (7-20) Creatinine 0.8 mg/dL (0.6-1.0) Estimated GFR (Cockcroft-Gault) 70.9 Glucose Level 165 mg/dL (70-99) Calcium Level 10.3 mg/dL (8.5-10.1) Test 05/31/21 07:21 Glucose (Fingerstick) 166 mg/dL (70-99) Microbiology 05/29/21 Blood Culture - Preliminary, Resulted NO GROWTH AFTER 2 DAYS 05/28/21 CSF Gram Stain - Final, Complete 05/26/21 Urine Culture - Final, Complete 05/26/21 Antimicrobic Susceptibility - Final, Complete Medications Current Medications Ondansetron HCl (Zofran) 4 mg STK-MED ONCE .ROUTE ; Start 05/26/21 at 18:47; Stop 05/26/21 at 18:47; Status DC Ondansetron HCl (Zofran) 4 mg 1X ONCE IVP Last administered on 05/26/21at 19:09; Start 05/26/21 at 19:00; Stop 05/26/21 at 19:01; Status DC Ceftriaxone Sodium (Rocephin) 1 gm 1X ONCE IVP Last administered on 05/26/21at 20:04; Start 05/26/21 at 19:30; Stop 05/26/21 at 19:31; Status DC Acetaminophen (Tylenol) 650 mg PRN Q4HRS PRN PO TEMP OVER 100.4F OR MILD PAIN; Start 05/26/21 at 22:00 Apixaban (Eliquis) 5 mg BID PO ; Start 05/26/21 at 23:00; Stop 05/28/21 at 12:45; Status DC Aspirin (Aspirin Chewable) 81 mg DAILY PO ; Start 05/27/21 at 09:00 Atorvastatin Calcium (Lipitor) 20 mg HS PO ; Start 05/26/21 at 22:30 Cetirizine HCl (ZyrTEC) 10 mg DAILY PO ; Start 05/27/21 at 09:00 Citalopram Hydrobromide (CeleXA) 20 mg DAILY PO ; Start 05/27/21 at 09:00 Divalproex Sodium (Depakote) 500 mg BID PO ; Start 05/26/21 at 23:00; Stop 05/27/21 at 17:46; Status DC Nystatin (Nystop) 15 misbah BID TP Last administered on 05/30/21at 21:10; Start 05/26/21 at 23:00 Pantoprazole Sodium (Protonix) 40 mg DAILYAC PO ; Start 05/27/21 at 07:30 Polyethylene Glycol (miraLAX PACKET) 17 gm DAILY PO ; Start 05/27/21 at 09:00 Info (Anti-Coagulation Monitoring By Pharmacy) 1 each PRN DAILY PRN MC PER PROTOCOL; Start 05/26/21 at 22:00; Stop 05/28/21 at 12:45; Status DC Ceftriaxone Sodium (Rocephin) 1 gm Q24H IVP Last administered on 05/27/21at 19:50; Start 05/27/21 at 20:00; Stop 05/28/21 at 11:40; Status DC Ondansetron HCl (Zofran) 4 mg PRN Q6HRS PRN IVP NAUSEA/VOMITING 1ST CHOICE Last administered on 05/27/21at 02:29; Start 05/26/21 at 22:15 Calcium Carbonate/ Glycine (Tums) 500 mg PRN Q3HRS PRN PO UPSET STOMACH; Start 05/26/21 at 22:15 Info (Non-Icu Electrolyte Protocol) 1 ea PRN DAILY PRN MC SEE COMMENTS; Start 05/26/21 at 22:15 Acetaminophen (Tylenol) 650 mg PRN Q6HRS PRN PO Headaches, Temp > 101.5F; Start 05/26/21 at 22:15; Stop 05/26/21 at 23:29; Status DC Senna/Docusate Sodium (Senna Plus) 1 tab BID PO ; Start 05/26/21 at 23:00 Heparin Sodium (Porcine) (Heparin Sodium) 5,000 unit Q8HRS SQ ; Start 05/27/21 at 06:00; Status UNV Sodium Chloride 1,000 ml @ 100 mls/hr Q10H IV Last administered on 05/29/21at 04:32; Start 05/27/21 at 12:45; Stop 05/29/21 at 13:37; Status DC Insulin Human Lispro (HumaLOG) 0-7 UNITS TIDWMEALS SQ Last administered on at 17:56; Start 05/27/21 at 17:00 Dextrose (Dextrose 50%-Water Syringe) 12.5 gm PRN Q15MIN PRN IV SEE COMMENTS; Start 05/27/21 at 12:45; Status Cancel Dextrose (Dextrose 50%-Water Syringe) 12.5 gm PRN Q15MIN PRN IV SEE COMMENTS; Start 05/27/21 at 12:45 Acetaminophen (Tylenol Supp) 650 mg PRN Q6HRS PRN NM MILD PAIN / TEMP > 100.3'F Last administered on 05/28/21at 06:05; Start 05/27/21 at 16:45 Valproic Acid 500 mg/Dextrose 55 ml @ 55 mls/hr Q12HR IV Last administered on 05/30/21at 21:12; Start 05/27/21 at 18:30 Daptomycin 400 mg/ Sodium Chloride 50 ml @ 100 mls/hr Q24H IV Last administered on 05/30/21at 12:29; Start 05/28/21 at 12:30; Stop 05/31/21 at 08:24; Status DC Cefepime HCl (Maxipime) 2 gm Q8HRS IVP Last administered on 05/31/21at 06:14; Start 05/28/21 at 14:00; Stop 05/31/21 at 08:25; Status DC Lidocaine HCl (Lidocaine 1% 20ml Vial) 20 ml STK-MED ONCE .ROUTE ; Start 05/28/21 at 12:51; Stop 05/28/21 at 12:51; Status DC Heparin Sodium (Porcine) (Heparin Sodium) 5,000 unit Q12HR SQ Last administered on 05/30/21at 21:26; Start 05/29/21 at 09:00 Sodium Chloride 1,000 ml @ 75 mls/hr 1X ONCE IV ; Start 05/29/21 at 13:45; Stop 05/29/21 at 13:45; Status DC Amino Acids/ Electrolytes/ Dextrose 1,000 ml @ 80 mls/hr [id number] IV Last administered on 05/31/21at 04:30; Start 05/29/21 at 13:45 Hydralazine HCl (Apresoline Inj) 10 mg PRN Q4HRS PRN IVP ELEVATED BP, SEE COMMENTS; Start 05/31/21 at 08:15 Cefepime HCl (Maxipime) 2 gm Q12HR IVP ; Start 05/31/21 at 09:00 Active Scripts Active Augmentin 250-62.5 Mg/5 Ml (Amoxicillin/Potassium Clav) 250 Mg/5 Ml Susp.recon 10 Ml PO BID 7 Days Vitamin D3 (Vitamin D) 25 Mcg Tablet 1,000 Unit PO DAILY 30 Days Vitamin C (Ascorbic Acid) 1,000 Mg Tablet 1,000 Mg PO TID 30 Days Vitamin B-1 (Thiamine Mononitrate) 100 Mg Tablet 100 Mg PO DAILY 30 Days Admelog (Insulin Lispro) 100 Unit/1 Ml Vial 0 Units SQ TIDWMEALS 14 Days Culturelle (Lactobacillus Rhamnosus Gg) 1 Each Cap.sprink 1 Cap PO BID 30 Days Pantoprazole Sodium (Pantoprazole Sodium) 40 Mg Tablet.dr 40 Mg PO DAILYAC 30 Days Zinc Sulfate 50 Mg Capsule 220 Mg PO DAILY 30 Days Acetaminophen 325 Mg Tablet 650 Mg PO PRN Q4HRS PRN 30 Days Reported Zyrtec (Cetirizine Hcl) 10 Mg Tablet 10 Mg PO DAILY Ondansetron Hcl 4 Mg Tablet 4 Mg PO BID PRN Polyethylene Glycol 3350 2,500 Gm Powder 17 Gm PO DAILY Depakote Er (Divalproex Sodium) 500 Mg Tab.er.24h 500 Mg PO BID Colace (Docusate Sodium) 100 Mg Capsule 100 Mg PO BID Celexa (Citalopram Hydrobromide) 20 Mg Tablet 20 Mg PO DAILY Aspirin 81 Mg Tab.chew 81 Mg PO DAILY Eliquis (Apixaban) 5 Mg Tablet 5 Mg PO BID Lantus Solostar (Insulin Glargine,Hum.rec.anlog) 100 Unit/1 Ml Insuln.pen 25 Unit SQ QHS Nystatin 15 Gm Powder 15 Gm TP BID Lipitor (Atorvastatin Calcium) 20 Mg Tablet 20 Mg PO HS Novolog Flexpen (Insulin Aspart) 100 Unit/1 Ml Insuln.pen 16 Unit SQ TIDWMEALS Vitals/I & O Vital Sign - Last 24 Hours 05/30/21 05/30/21 05/30/21 05/30/21 10:55 15:15 19:00 19:35 Temp 97.4 98.8 98.2 97.4 98.8 98.2 Pulse 71 64 88 Resp 18 18 20 B/P (MAP) 148/61 (90) 162/69 (100) 159/81 (107) Pulse Ox 98 97 93 O2 Delivery NonRebreather Mask NonRebreather Mask Non-Rebreather O2 Flow Rate 14.0 14.0 14.0 10/05/31/21 05/31/21 05/31/21 23:00 03:00 07:00 07:31 Temp 98.6 98.8 98.6 98.6 98.8 98.6 Pulse 69 71 78 Resp 20 20 18 B/P (MAP) 182/71 (108) 146/73 (97) 192/73 (112) Pulse Ox 95 95 96 O2 Delivery NonRebreather Mask Non-Rebreather O2 Flow Rate 14.0 Intake and Output 05/30/21 05/30/21 05/31/21 15:00 23:00 07:00 Intake Total 100 ml 650 ml 1920 ml Balance 100 ml 650 ml 1920 ml Justicifation of Admission Dx: Justifications for Admission: Justification of Admission Dx: Yes ZAYRA FUNG MD May 31, 2021 08:53
[2021-05-31] MEDS: ATORVASTATIN CALCIUM 20 MG TABLET PO SCH (20:18)
[2021-05-31] MEDS: VALPROIC ACID (AS SODIUM SALT) 250 MG in IV DEXTROSE 5% 50 ML IV SCH (20:44)
[2021-06-01] MEDS: hydrALAZINE 20 MG/ML VIAL. IVP PRN (02:46)
[2021-06-01 03:01] VITALS: BP 213/105
[2021-06-01] MEDS: AA 4.25 %/CALCIUM/LYTES/D5W 1,000 ML IV SCH ×2 (04:03→17:53)
[2021-06-01 07:00] VITALS: BP_SYST 137; BP_SYST 155; BP_DIAS 63; BP_DIAS 93
[2021-06-01 07:14] LABS: BASO % 0 % (0-3); EOS % 0 % (0-3); HEMATOCRIT 34.1 % (36.0-47.0); HEMOGLOBIN 10.3 g/dL (12.0-15.5); LYMPH % 17 % (24-48); MEAN CORPUSCULAR HEMOGLOBIN 26 pg (25-35); MEAN CORPUSCULAR HGB CONC 30 g/dL (31-37); MEAN CORPUSCULAR VOLUME 86 fL (79-100); MONO # 1.7 x10^3/uL (0.0-1.1); MONO % 15 % (0-9); NEUT # 7.7 x10^3/uL (1.8-7.7); NEUT % 67 % (31-73); PLATELET COUNT 281 x10^3/uL (140-400); RED BLOOD COUNT 3.96 x10^6/uL (3.50-5.40); RED CELL DISTRIBUTION WIDTH 17.6 % (11.5-14.5); WHITE BLOOD COUNT 11.5 x10^3/uL (4.0-11.0)
[2021-06-01 07:25] LABS: CALCIUM 10.7 mg/dL (8.5-10.1); CREATININE 0.8 mg/dL (0.6-1.0); GFR 70.9; POTASSIUM 4.4 mmol/L (3.5-5.1)
[2021-06-01] MEDS: PANTOPRAZOLE 40 MG TABLET.DR. PO SCH (07:30)
[2021-06-01] MEDS: INSULIN LISPRO 300 UNITS/3 ML VIAL. SQ SCH ×3 (08:00→17:00)
--- NOTE | 2021-06-01 08:05 | PDOC ---
Infectious Disease Note Subjective: Subjective Patient continues to remain on on nonrebreather Today open eyes with stimuli. Does not answer any questions. Afebrile last 48 hours Vital Signs: Vital Signs Vital Signs Date Time Temp Pulse Resp B/P (MAP) Pulse Ox O2 Delivery O2 Flow Rate FiO2 06/01/21 03:01 98.2 69 22 213/105 (141) 98 NonRebreather Mask 15.0 98.2 Physical Exam: PHYSICAL EXAM GENERAL: Well-developed, well-nourished female, opens eyes to stimuli Nonrebreather HEENT: Eyes closed, unable to open mouth, on nonrebreather. NECK: Supple. LUNGS: Clear anteriorly. HEART: S1, S2. No murmurs. ABDOMEN: Soft, nontender, bowel sounds present. EXTREMITIES: No edema, no clubbing, no cyanosis. DERM: No generalized rash, some chronic venous stasis changes present over both the lower extremities, mild redness present. No open wounds noted. CENTRAL NERVOUS SYSTEM: Unable to assess. PSYCHIATRIC: Unable to assess. Medications: Inpatient Meds: Medications reviewed. Labs: Lab Laboratory Tests Test 05/31/21 11:37 05/31/21 16:44 05/31/21 20:44 06/01/21 06:20 Glucose (Fingerstick) 178 mg/dL (70-99) 187 mg/dL (70-99) 173 mg/dL (70-99) White Blood Count 11.5 x10^3/uL (4.0-11.0) Red Blood Count 3.96 x10^6/uL (3.50-5.40) Hemoglobin 10.3 g/dL (12.0-15.5) Hematocrit 34.1 % (36.0-47.0) Mean Corpuscular Volume 86 fL (79-100) Mean Corpuscular Hemoglobin 26 pg (25-35) Mean Corpuscular Hemoglobin Concent 30 g/dL (31-37) Red Cell Distribution Width 17.6 % (11.5-14.5) Platelet Count 281 x10^3/uL (140-400) Neutrophils (%) (Auto) 67 % (31-73) Lymphocytes (%) (Auto) 17 % (24-48) Monocytes (%) (Auto) 15 % (0-9) Eosinophils (%) (Auto) 0 % (0-3) Basophils (%) (Auto) 0 % (0-3) Neutrophils # (Auto) 7.7 x10^3/uL (1.8-7.7) Lymphocytes # (Auto) 2.0 x10^3/uL (1.0-4.8) Monocytes # (Auto) 1.7 x10^3/uL (0.0-1.1) Eosinophils # (Auto) 0.0 x10^3/uL (0.0-0.7) Basophils # (Auto) 0.0 x10^3/uL (0.0-0.2) Sodium Level 143 mmol/L (136-145) Potassium Level 4.4 mmol/L (3.5-5.1) Chloride Level 109 mmol/L (98-107) Carbon Dioxide Level 29 mmol/L (21-32) Anion Gap 5 (6-14) Blood Urea Nitrogen 29 mg/dL (7-20) Creatinine 0.8 mg/dL (0.6-1.0) Estimated GFR (Cockcroft-Gault) 70.9 Glucose Level 182 mg/dL (70-99) Calcium Level 10.7 mg/dL (8.5-10.1) Test 06/01/21 07:44 Glucose (Fingerstick) 188 mg/dL (70-99) Objective: Assessment: 1. Encephalopathy with history of cerebrovascular accident, aphasia at baseline, unclear. Etiology appears more metabolic. Lumbar puncture negative, Gram stain negative Neurology input appreciated 2. Sepsis. Appears multifactorial 3. Gram-positive bacteremia in 1/4 bottles present on admission,Coagulase- negative staph likely contaminant 4. Fever, T-max 102.5 despite pathogen directed therapy. Fever pattern improving 5. Leukocytosis. Pattern improving 6. [facility]. 7. Urinary tract infection. Urine culture positive for Klebsiella pneumoniae. 8. Acute hypoxic respiratory failure requiring nonrebreather. 9. Diabetes mellitus. 10. History of bipolar disorder. Per team patient remains full code Plan: Plan of Care Continue cefepime CT abdomen and pelvis reviewed Maintain aspiration precaution Repeat blood cultures Follow-up labs and cultures Continue supportive care Prognosis guarded Discussed with nursing staff ELZBIETA WARREN MD Jun 01, 2021 08:05
[2021-06-01] MEDS: POLYETHYLENE GLYCOL 3350 17 GM PACKET. PO SCH (09:00)
[2021-06-01] MEDS: ASPIRIN CHEWABLE 81 MG TABLET. PO SCH (09:00)
[2021-06-01] MEDS: CETIRIZINE HCL 10 MG TABLET. PO SCH (09:00)
[2021-06-01] MEDS: NYSTATIN TOPICAL POWDER 15GM BOTTLE. TP SCH ×2 (09:00→21:00)
[2021-06-01] MEDS: CITALOPRAM 20 MG TABLET. PO SCH (09:00)
[2021-06-01] MEDS: SENNOSIDES/DOCUSATE 8.6/50MG TABLET. PO SCH ×2 (09:00→21:00)
[2021-06-01] MEDS: VALPROIC ACID (AS SODIUM SALT) 250 MG in IV DEXTROSE 5% 50 ML IV SCH (09:34)
[2021-06-01] MEDS: CEFEPIME HCL IV Push 2 GM VIAL. IVP SCH ×2 (09:35→21:40)
[2021-06-01] MEDS: HEPARIN for SUB-Q USE 5,000 UNIT/ML VIAL. SQ SCH ×2 (09:37→21:46)
--- NOTE | 2021-06-01 09:53 | PDOC ---
[facility] [facility] PROGRESS NOTE Date of Service DOS: DATE: 06/01/21 TIME: 09:51 Chief Complaint Chief Complaint UTI Weakness Baseline altered mental status History of type 2 diabetes Hypertension History of Bipolar -Altered mental status at living facility -Found to have UTI. Received Rocephin emergency room will continue this for now -DVT prophylaxis -PT OT ordered -Home meds resumed as indicated -We will start sliding scale for blood sugar adjust as needed -Diet as tolerated History of Present Illness History of Present Illness Patient unable to provide history history from emergency room. 70-year-old female who is a snf resident and is baseline nonverbal from previous stroke patient presents to the emergency department with mental status change at her snf. Reportedly she was seen staring off into space for more time than usual and had twitching movements of her face. She was then sent to the ER for further evaluation. She apparently had a urinalysis done at the nursing facility which showed infection but she was not treated for this infection yet. Blood sugar in the field was 120. The patient is unable to provide any history secondary to her baseline mental status. There is no concrete seizure-like activity seen at the nursing facility. 05/27: Low-grade fever overnight (T-max 99.9 F), breathing on 3 L nasal cannula. Continue Rocephin 1 g daily. Will continue to follow urine culture. Unknown baseline mental status, but once we have results of urine culture she can be discharged to complete her antibiotic course as outpatient. If no improvement in her mental status after completion of antibiotic treatment with appropriate sensitivities, will consult neurology. 05/28: Febrile overnight, T-max 102.5 F. Currently on 14 L nonrebreather. No urine cultures to date. Today should be her third dose of Rocephin. Will obtain repeat UA with culture, however concerned that she has been on antibiotics for the past 2 days. Chest x-ray yesterday showed no acute pulmonary finding. Blood cultures yesterday showed gram-positive cocci in clusters, suggestive of staph in 1 of 4 bottles. Initially thought blood cultures may be contaminants, but due to fever and worsening WBC. After consultation with ID, next likely source could be CSF. Discussed with daughter and she is agreeable to lumbar puncture. Will place LP orders; she will need to hold her Eliquis likely for 2 days prior to this procedure. Critical care time 30 minutes spent reviewing charts, reviewing labs, reviewing imaging, discussion with daughter, and discussion with Dr. Elkins. 05/29/2021: Afebrile overnight, on 15 L nonrebreather. No significant improveme nt in mentation. Urine culture growing Klebsiella pneumonia; will continue to follow urine culture for sensitivities. Currently on daptomycin and cefepime. Final blood culture showing Staph capitis; repeat blood cultures pending. CSF results showed no organisms on Gram stain. 05/30/2021: Afebrile, still breathing on 15 L nonrebreather. Discussed with patient's daughter, she had a similar presentation about 1 month ago and clinical response was slow to improve about 2-3 days following her appropriate antibiotic treatment for UTI. Patient was able to follow me with her eyes yesterday and lightly squeeze my hand. This morning she is sleeping deeply; will reevaluate mental status this afternoon. 05/31/2021: See breathing on 14 L nonrebreather. Upon review of her paperwork for medical [place] it is noted that patient is DNR; will make appropriate changes in the EMR. Consultation placed to neurology given appropriate medical treatment and improvement in mental status. Per Dr. Rangel, no additional neurologic tests required at this time, with taper off Depakote. Continue to monitor for clinical recovery. 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 Patient continued to have some significant hypertension; continue as needed hydralazine. Appreciate neurology recommendations. Will continue cefepime, per ID. Vitals/I&O Vitals/I&O: Vital Signs Date Time Temp Pulse Resp B/P (MAP) Pulse Ox O2 Delivery O2 Flow Rate FiO2 06/01/21 07:00 98.3 93 22 155/93 (113) 97 NonRebreather Mask 14.0 98.3 I & O 05/31/21 05/31/21 06/01/21 15:00 23:00 07:00 Intake Total 0 ml 0 ml 950 ml Balance 0 ml 0 ml 950 ml Physical Exam Physical Exam: GENERAL: Well-developed, well-nourished female, obtunded, winces just on deep painful stimuli Nonrebreather HEENT: Eyes closed, unable to open mouth, on nonrebreather. NECK: Supple. LUNGS: Clear anteriorly. HEART: S1, S2. No murmurs. ABDOMEN: Soft, nontender, bowel sounds present. EXTREMITIES: No edema, no clubbing, no cyanosis. DERM: No generalized rash, some chronic venous stasis changes present over both the lower extremities, mild redness present. No open wounds noted. CENTRAL NERVOUS SYSTEM: Unable to assess. PSYCHIATRIC: Unable to assess. General: Alert, Cooperative Heart: Regular rate Lungs: Clear Abdomen: Soft, No tenderness Extremities: No clubbing, No cyanosis Skin: No rashes, No breakdown Labs Labs: Laboratory Tests Test 05/31/21 11:37 05/31/21 16:44 05/31/21 20:44 06/01/21 06:20 Glucose (Fingerstick) 178 mg/dL (70-99) 187 mg/dL (70-99) 173 mg/dL (70-99) White Blood Count 11.5 x10^3/uL (4.0-11.0) Red Blood Count 3.96 x10^6/uL (3.50-5.40) Hemoglobin 10.3 g/dL (12.0-15.5) Hematocrit 34.1 % (36.0-47.0) Mean Corpuscular Volume 86 fL (79-100) Mean Corpuscular Hemoglobin 26 pg (25-35) Mean Corpuscular Hemoglobin Concent 30 g/dL (31-37) Red Cell Distribution Width 17.6 % (11.5-14.5) Platelet Count 281 x10^3/uL (140-400) Neutrophils (%) (Auto) 67 % (31-73) Lymphocytes (%) (Auto) 17 % (24-48) Monocytes (%) (Auto) 15 % (0-9) Eosinophils (%) (Auto) 0 % (0-3) Basophils (%) (Auto) 0 % (0-3) Neutrophils # (Auto) 7.7 x10^3/uL (1.8-7.7) Lymphocytes # (Auto) 2.0 x10^3/uL (1.0-4.8) Monocytes # (Auto) 1.7 x10^3/uL (0.0-1.1) Eosinophils # (Auto) 0.0 x10^3/uL (0.0-0.7) Basophils # (Auto) 0.0 x10^3/uL (0.0-0.2) Sodium Level 143 mmol/L (136-145) Potassium Level 4.4 mmol/L (3.5-5.1) Chloride Level 109 mmol/L (98-107) Carbon Dioxide Level 29 mmol/L (21-32) Anion Gap 5 (6-14) Blood Urea Nitrogen 29 mg/dL (7-20) Creatinine 0.8 mg/dL (0.6-1.0) Estimated GFR (Cockcroft-Gault) 70.9 Glucose Level 182 mg/dL (70-99) Calcium Level 10.7 mg/dL (8.5-10.1) Test 06/01/21 07:44 Glucose (Fingerstick) 188 mg/dL (70-99) Assessment and Plan Assessmemt and Plan Problems Medical Problems: (1) Altered mental state Status: Acute (2) UTI (urinary tract infection) Status: Acute Comment Review of Relevant I have reviewed the following items venita (where applicable) has been applied. Medications: Current Medications Medications (Trade) Dose Ordered Sig/Glory Route PRN Reason Start Time Stop Time Status Last Admin Dose Admin Valproic Acid 250 mg/Dextrose 52.5 ml @ 55 mls/hr Q12HR IV 05/31/21 21:00 06/01/21 09:58 06/01/21 09:34 Justifications for Admission Other Justification Altered mental status and acute UTI AMOL DE LA VEGA MD Jun 01, 2021 09:53
[2021-06-01 11:00] VITALS: BP 157/59
[2021-06-01 15:00] VITALS: BP 143/74
[2021-06-01 19:00] VITALS: BP 152/77
[2021-06-01] MEDS: ATORVASTATIN CALCIUM 20 MG TABLET PO SCH (21:00)
[2021-06-01 23:00] VITALS: BP 134/58
[2021-06-02 03:00] VITALS: BP 139/82
[2021-06-02] MEDS: AA 4.25 %/CALCIUM/LYTES/D5W 1,000 ML IV SCH ×2 (04:41→16:49)
[2021-06-02 07:00] VITALS: BP 192/75
[2021-06-02 07:54] LABS: BASO # 0.1 x10^3/uL (0.0-0.2); BASO % 1 % (0-3); EOS # 0.2 x10^3/uL (0.0-0.7); EOS % 2 % (0-3); HEMATOCRIT 30.9 % (36.0-47.0); HEMOGLOBIN 9.7 g/dL (12.0-15.5); LYMPH # 1.9 x10^3/uL (1.0-4.8); LYMPH % 21 % (24-48); MEAN CORPUSCULAR HEMOGLOBIN 27 pg (25-35); MEAN CORPUSCULAR HGB CONC 31 g/dL (31-37); MEAN CORPUSCULAR VOLUME 85 fL (79-100); MONO # 1.4 x10^3/uL (0.0-1.1); MONO % 16 % (0-9); NEUT # 5.4 x10^3/uL (1.8-7.7); NEUT % 59 % (31-73); PLATELET COUNT 282 x10^3/uL (140-400); RED BLOOD COUNT 3.62 x10^6/uL (3.50-5.40); RED CELL DISTRIBUTION WIDTH 17.7 % (11.5-14.5)
[2021-06-02] MEDS: INSULIN LISPRO 300 UNITS/3 ML VIAL. SQ SCH ×3 (08:00→16:50)
[2021-06-02 08:26] LABS: CALCIUM 10.2 mg/dL (8.5-10.1); CREATININE 0.7 mg/dL (0.6-1.0); GFR 82.7; POTASSIUM 4.6 mmol/L (3.5-5.1)
--- NOTE | 2021-06-02 08:59 | PDOC ---
[facility] [facility] PROGRESS NOTE Date of Service DOS: DATE: 06/02/21 TIME: 08:56 Chief Complaint Chief Complaint UTI Weakness Baseline altered mental status History of type 2 diabetes Hypertension History of Bipolar -Altered mental status at living facility -Found to have UTI. Received Rocephin emergency room will continue this for now -DVT prophylaxis -PT OT ordered -Home meds resumed as indicated -We will start sliding scale for blood sugar adjust as needed -Diet as tolerated History of Present Illness History of Present Illness Patient unable to provide history history from emergency room. 70-year-old female who is a [facility] resident and is baseline nonverbal from previous stroke patient presents to the emergency department with mental status change at her [facility]. Reportedly she was seen staring off into space for more time than usual and had twitching movements of her face. She was then sent to the ER for further evaluation. She apparently had a urinalysis done at the nursing facility which showed infection but she was not treated for this infection yet. Blood sugar in the field was 120. The patient is unable to provide any history secondary to her baseline mental status. There is no concrete seizure-like activity seen at the nursing facility. 05/27: Low-grade fever overnight (T-max 99.9 F), breathing on 3 L nasal cannula. Continue Rocephin 1 g daily. Will continue to follow urine culture. Unknown baseline mental status, but once we have results of urine culture she can be discharged to complete her antibiotic course as outpatient. If no improvement in her mental status after completion of antibiotic treatment with appropriate sensitivities, will consult neurology. 05/28: Febrile overnight, T-max 102.5 F. Currently on 14 L nonrebreather. No urine cultures to date. Today should be her third dose of Rocephin. Will obtain repeat UA with culture, however concerned that she has been on antibiotics for the past 2 days. Chest x-ray yesterday showed no acute pulmonary finding. Blood cultures yesterday showed gram-positive cocci in clusters, suggestive of staph in 1 of 4 bottles. Initially thought blood cultures may be contaminants, but due to fever and worsening WBC. After consultation with ID, next likely source could be CSF. Discussed with daughter and she is agreeable to lumbar puncture. Will place LP orders; she will need to hold her Eliquis likely for 2 days prior to this procedure. Critical care time 30 minutes spent reviewing charts, reviewing labs, reviewing imaging, discussion with daughter, and discussion with Dr. Elkins. 05/29/2021: Afebrile overnight, on 15 L nonrebreather. No significant improveme nt in mentation. Urine culture growing Klebsiella pneumonia; will continue to follow urine culture for sensitivities. Currently on daptomycin and cefepime. Final blood culture showing Staph capitis; repeat blood cultures pending. CSF results showed no organisms on Gram stain. 05/30/2021: Afebrile, still breathing on 15 L nonrebreather. Discussed with patient's daughter, she had a similar presentation about 1 month ago and clinical response was slow to improve about 2-3 days following her appropriate antibiotic treatment for UTI. Patient was able to follow me with her eyes yesterday and lightly squeeze my hand. This morning she is sleeping deeply; will reevaluate mental status this afternoon. 05/31/2021: See breathing on 14 L nonrebreather. Upon review of her paperwork for medical [place] it is noted that patient is DNR; will make appropriate changes in the EMR. Consultation placed to neurology given appropriate medical treatment and improvement in mental status. Per Dr. Rangel, no additional neurologic tests required at this time, with taper off Depakote. Continue to monitor for clinical recovery. 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 Patient continued to have some significant hypertension; continue as needed hydralazine. Appreciate neurology recommendations. Will continue cefepime, per ID. 06/02/2021: Afebrile. Much more improved today. Opens both eyes to questions and stimulus. Still not speaking. Hopefully she will continue to improve and become more verbal in the next day. Vitals/I&O Vitals/I&O: Vital Signs Date Time Temp Pulse Resp B/P (MAP) Pulse Ox O2 Delivery O2 Flow Rate FiO2 06/02/21 07:00 98.9 83 22 192/75 (114) 97 NonRebreather Mask 14.0 98.9 I & O 06/01/21 06/01/21 06/02/21 15:00 23:00 07:00 Intake Total 774.3 ml Balance 774.3 ml Physical Exam Physical Exam: GENERAL: Well-developed, well-nourished female, opens eyes to stimuli Nonrebreather HEENT: Eyes closed, unable to open mouth, on nonrebreather. NECK: Supple. LUNGS: Clear anteriorly. HEART: S1, S2. No murmurs. ABDOMEN: Soft, nontender, bowel sounds present. EXTREMITIES: No edema, no clubbing, no cyanosis. DERM: No generalized rash, some chronic venous stasis changes present over both the lower extremities, mild redness present. No open wounds noted. CENTRAL NERVOUS SYSTEM: Unable to assess. PSYCHIATRIC: Unable to assess. General: Alert, Other (Will open eyes when aroused, and and lightly squeeze hand.) Heart: Regular rate Lungs: Clear Abdomen: Soft, No tenderness Extremities: No clubbing, No cyanosis Skin: No rashes, No breakdown Labs Labs: Laboratory Tests Test 06/01/21 11:35 06/01/21 16:50 06/01/21 20:12 06/02/21 06:35 Glucose (Fingerstick) 181 mg/dL (70-99) 195 mg/dL (70-99) 193 mg/dL (70-99) White Blood Count 9.0 x10^3/uL (4.0-11.0) Red Blood Count 3.62 x10^6/uL (3.50-5.40) Hemoglobin 9.7 g/dL (12.0-15.5) Hematocrit 30.9 % (36.0-47.0) Mean Corpuscular Volume 85 fL (79-100) Mean Corpuscular Hemoglobin 27 pg (25-35) Mean Corpuscular Hemoglobin Concent 31 g/dL (31-37) Red Cell Distribution Width 17.7 % (11.5-14.5) Platelet Count 282 x10^3/uL (140-400) Neutrophils (%) (Auto) 59 % (31-73) Lymphocytes (%) (Auto) 21 % (24-48) Monocytes (%) (Auto) 16 % (0-9) Eosinophils (%) (Auto) 2 % (0-3) Basophils (%) (Auto) 1 % (0-3) Neutrophils # (Auto) 5.4 x10^3/uL (1.8-7.7) Lymphocytes # (Auto) 1.9 x10^3/uL (1.0-4.8) Monocytes # (Auto) 1.4 x10^3/uL (0.0-1.1) Eosinophils # (Auto) 0.2 x10^3/uL (0.0-0.7) Basophils # (Auto) 0.1 x10^3/uL (0.0-0.2) Sodium Level 140 mmol/L (136-145) Potassium Level 4.6 mmol/L (3.5-5.1) Chloride Level 106 mmol/L (98-107) Carbon Dioxide Level 32 mmol/L (21-32) Anion Gap 2 (6-14) Blood Urea Nitrogen 31 mg/dL (7-20) Creatinine 0.7 mg/dL (0.6-1.0) Estimated GFR (Cockcroft-Gault) 82.7 Glucose Level 186 mg/dL (70-99) Calcium Level 10.2 mg/dL (8.5-10.1) Test 06/02/21 07:14 Glucose (Fingerstick) 197 mg/dL (70-99) Assessment and Plan Assessmemt and Plan Problems Medical Problems: (1) Altered mental state Status: Acute (2) UTI (urinary tract infection) Status: Acute Comment Review of Relevant I have reviewed the following items venita (where applicable) has been applied. Justifications for Admission Other Justification Altered mental status and acute UTI AMOL DE LA VEGA MD Jun 02, 2021 08:59
[2021-06-02] MEDS: ASPIRIN CHEWABLE 81 MG TABLET. PO SCH (09:00)
[2021-06-02] MEDS: NYSTATIN TOPICAL POWDER 15GM BOTTLE. TP SCH ×2 (09:00→21:15)
[2021-06-02] MEDS: POLYETHYLENE GLYCOL 3350 17 GM PACKET. PO SCH (09:00)
[2021-06-02] MEDS: CITALOPRAM 20 MG TABLET. PO SCH (09:00)
[2021-06-02] MEDS: CETIRIZINE HCL 10 MG TABLET. PO SCH (09:00)
[2021-06-02] MEDS: SENNOSIDES/DOCUSATE 8.6/50MG TABLET. PO SCH ×2 (09:00→21:00)
[2021-06-02] MEDS: PANTOPRAZOLE IV PUSH 40 MG VIAL. IVP SCH (09:01)
[2021-06-02] MEDS: CEFEPIME HCL IV Push 2 GM VIAL. IVP SCH ×2 (09:03→22:18)
--- NOTE | 2021-06-02 09:17 | PDOC ---
Infectious Disease Note Subjective: Subjective Patient continues to remain on on nonrebreather Today open eyes with stimuli. Does not answer any questions. Afebrile last 48 hours No acute issues per discussion with RN Vital Signs: Vital Signs Vital Signs Date Time Temp Pulse Resp B/P (MAP) Pulse Ox O2 Delivery O2 Flow Rate FiO2 06/02/21 07:00 98.9 83 22 192/75 (114) 97 NonRebreather Mask 14.0 98.9 Physical Exam: PHYSICAL EXAM GENERAL: Well-developed, well-nourished female, opens eyes to stimuli Nonrebreather HEENT: Eyes closed, unable to open mouth, on nonrebreather. NECK: Supple. LUNGS: Clear anteriorly. HEART: S1, S2. No murmurs. ABDOMEN: Soft, nontender, bowel sounds present. EXTREMITIES: No edema, no clubbing, no cyanosis. DERM: No generalized rash, some chronic venous stasis changes present over both the lower extremities, mild redness present. No open wounds noted. CENTRAL NERVOUS SYSTEM: Unable to assess. PSYCHIATRIC: Unable to assess. Medications: Inpatient Meds: Medications reviewed. Labs: Lab Laboratory Tests Test 06/01/21 11:35 06/01/21 16:50 06/01/21 20:12 06/02/21 06:35 Glucose (Fingerstick) 181 mg/dL (70-99) 195 mg/dL (70-99) 193 mg/dL (70-99) White Blood Count 9.0 x10^3/uL (4.0-11.0) Red Blood Count 3.62 x10^6/uL (3.50-5.40) Hemoglobin 9.7 g/dL (12.0-15.5) Hematocrit 30.9 % (36.0-47.0) Mean Corpuscular Volume 85 fL (79-100) Mean Corpuscular Hemoglobin 27 pg (25-35) Mean Corpuscular Hemoglobin Concent 31 g/dL (31-37) Red Cell Distribution Width 17.7 % (11.5-14.5) Platelet Count 282 x10^3/uL (140-400) Neutrophils (%) (Auto) 59 % (31-73) Lymphocytes (%) (Auto) 21 % (24-48) Monocytes (%) (Auto) 16 % (0-9) Eosinophils (%) (Auto) 2 % (0-3) Basophils (%) (Auto) 1 % (0-3) Neutrophils # (Auto) 5.4 x10^3/uL (1.8-7.7) Lymphocytes # (Auto) 1.9 x10^3/uL (1.0-4.8) Monocytes # (Auto) 1.4 x10^3/uL (0.0-1.1) Eosinophils # (Auto) 0.2 x10^3/uL (0.0-0.7) Basophils # (Auto) 0.1 x10^3/uL (0.0-0.2) Sodium Level 140 mmol/L (136-145) Potassium Level 4.6 mmol/L (3.5-5.1) Chloride Level 106 mmol/L (98-107) Carbon Dioxide Level 32 mmol/L (21-32) Anion Gap 2 (6-14) Blood Urea Nitrogen 31 mg/dL (7-20) Creatinine 0.7 mg/dL (0.6-1.0) Estimated GFR (Cockcroft-Gault) 82.7 Glucose Level 186 mg/dL (70-99) Calcium Level 10.2 mg/dL (8.5-10.1) Test 06/02/21 07:14 Glucose (Fingerstick) 197 mg/dL (70-99) Objective: Assessment: 1. Encephalopathy with history of cerebrovascular accident, aphasia at baseline, unclear. Etiology appears more metabolic. Lumbar puncture negative, Gram stain negative Neurology input appreciated 2. Sepsis. Appears multifactorial 3. Gram-positive bacteremia in 1/4 bottles present on admission,Coagulase- negative staph likely contaminant 4. Fever, T-max 102.5 despite pathogen directed therapy. Fever pattern improving 5. Leukocytosis. Pattern improving 6. [facility] resident. 7. Urinary tract infection. Urine culture positive for Klebsiella pneumoniae. 8. Acute hypoxic respiratory failure requiring nonrebreather. 9. Diabetes mellitus. 10. History of bipolar disorder. Per team patient remains full code Plan: Plan of Care Continue cefepime CT abdomen and pelvis reviewed Maintain aspiration precaution Repeat blood cultures Follow-up labs and cultures Continue supportive care Prognosis guarded Discussed with nursing staff ELZBIETA WARREN MD Jun 02, 2021 09:17
[2021-06-02] MEDS: HEPARIN for SUB-Q USE 5,000 UNIT/ML VIAL. SQ SCH ×2 (10:59→22:27)
[2021-06-02 11:00] VITALS: BP 182/85
[2021-06-02 15:00] VITALS: BP 182/69
[2021-06-02 19:00] VITALS: BP 175/82
[2021-06-02] MEDS: ATORVASTATIN CALCIUM 20 MG TABLET PO SCH (21:00)
[2021-06-02 23:00] VITALS: BP 172/79
[2021-06-03 03:00] VITALS: BP 172/78
[2021-06-03] MEDS: AA 4.25 %/CALCIUM/LYTES/D5W 1,000 ML IV SCH ×2 (03:38→17:08)
[2021-06-03 06:09] LABS: ENTEROVIRUS RNA Negative (Negative)
[2021-06-03] MEDS: PANTOPRAZOLE IV PUSH 40 MG VIAL. IVP SCH (06:12)
[2021-06-03 07:00] VITALS: BP 164/65
[2021-06-03] MEDS: INSULIN LISPRO 300 UNITS/3 ML VIAL. SQ SCH ×3 (08:00→17:00)
[2021-06-03] MEDS: CETIRIZINE HCL 10 MG TABLET. PO SCH (09:00)
[2021-06-03] MEDS: ASPIRIN CHEWABLE 81 MG TABLET. PO SCH (09:00)
[2021-06-03] MEDS: POLYETHYLENE GLYCOL 3350 17 GM PACKET. PO SCH (09:00)
[2021-06-03] MEDS: CITALOPRAM 20 MG TABLET. PO SCH (09:00)
[2021-06-03] MEDS: SENNOSIDES/DOCUSATE 8.6/50MG TABLET. PO SCH ×2 (09:00→21:00)
--- NOTE | 2021-06-03 09:37 | PDOC ---
Infectious Disease Note Subjective: Subjective Patient continues to remain on nonrebreather Opens eyes with stimuli Does not answer any questions Remains afebrile for last couple of days Discussed with nursing staff Vital Signs: Vital Signs Vital Signs Date Time Temp Pulse Resp B/P (MAP) Pulse Ox O2 Delivery O2 Flow Rate FiO2 06/03/21 07:00 98.7 72 22 164/65 (98) 95 NonRebreather Mask 14.0 98.7 Physical Exam: PHYSICAL EXAM GENERAL: Well-developed, well-nourished female, opens eyes to stimuli Nonrebreather HEENT: Eyes closed, unable to open mouth, on nonrebreather. NECK: Supple. LUNGS: Clear anteriorly. HEART: S1, S2. No murmurs. ABDOMEN: Soft, nontender, bowel sounds present. EXTREMITIES: No edema, no clubbing, no cyanosis. DERM: No generalized rash, some chronic venous stasis changes present over both the lower extremities, mild redness present. No open wounds noted. CENTRAL NERVOUS SYSTEM: Unable to assess. PSYCHIATRIC: Unable to assess. Medications: Inpatient Meds: Medications reviewed. Labs: Lab Laboratory Tests Test 06/02/21 11:46 06/02/21 16:39 06/02/21 20:05 06/03/21 08:07 Glucose (Fingerstick) 196 mg/dL (70-99) 174 mg/dL (70-99) 204 mg/dL (70-99) 210 mg/dL (70-99) Objective: Assessment: 1. Encephalopathy with history of cerebrovascular accident, aphasia at baseline, unclear. Etiology appears more metabolic. Lumbar puncture negative, Gram stain negative Neurology input appreciated 2. Sepsis. Appears multifactorial 3. Gram-positive bacteremia in 1/4 bottles present on admission,Coagulase- negative staph likely contaminant 4. Fever, T-max 102.5 despite pathogen directed therapy. Fever pattern improving 5. Leukocytosis. Pattern improving 6. residential resident. 7. Urinary tract infection. Urine culture positive for Klebsiella pneumoniae. 8. Acute hypoxic respiratory failure requiring nonrebreather. 9. Diabetes mellitus. 10. History of bipolar disorder. Per team patient remains full code Plan: Plan of Care Patient still remains on nonrebreather Mental status improving though slowly, baseline unclear, does not answer any questions,daughter lives out of state per discussion with Dr. Banegas Continue cefepime CT abdomen and pelvis reviewed Maintain aspiration precaution Repeat blood cultures Follow-up labs and cultures Continue supportive care Prognosis poor Consider palliative care Discussed with nursing staff ELZBIETA WARREN MD Jun 03, 2021 09:37
[2021-06-03] MEDS: CEFEPIME HCL IV Push 2 GM VIAL. IVP SCH ×2 (10:13→20:57)
[2021-06-03] MEDS: HEPARIN for SUB-Q USE 5,000 UNIT/ML VIAL. SQ SCH ×2 (10:16→21:10)
[2021-06-03] MEDS: NYSTATIN TOPICAL POWDER 15GM BOTTLE. TP SCH ×2 (10:29→21:07)
--- NOTE | 2021-06-03 10:36 | PDOC ---
PROGRESS NOTES Date of Service DATE: 06/03/21 TIME: 10:32 Assessment Problems Medical Problems: (1) Altered mental state Status: Acute (2) UTI (urinary tract infection) Status: Acute Metabolic encephalopathy in dementia, urinary tract infection, sepsis and fevers, respiratory failure on nonrebreather mask, negative lumbar puncture. She is brighter today History of subdural hematoma and stroke, drug-induced parkinsonism, diabetic neuropathy with gait disorder, bipolar disorder, schizophrenia, and cervical dystonia. History of diabetes and cardiac disease She was at earlier this month for UTI and tremors/myoclonus, EEG was negative, they used the valproic acid for bipolar and myoclonus. I tapered her off of it, there are no reported seizures or myoclonus, she is more alert Plan Continue to treat medical diseases DNR No additional neurological tests required, in particular I am holding off on electroencephalogram and MRI. Discussed with daughter on 05/31 Subjective None Objective Vital Signs Date Time Temp Pulse Resp B/P (MAP) Pulse Ox O2 Delivery O2 Flow Rate FiO2 06/03/21 07:00 98.7 72 22 164/65 (98) 95 NonRebreather Mask 14.0 98.7 PHYSICAL EXAM On rebreather mask, eyes open, regards observer, tries to mouth some replies, moves to command PERRL. EOMI. CN: no focal findings. Muscle tone: normal. Muscle strength: Moves all extremities DTR: 1+ Plantar reflex: Silent Gait: not examined in bed. Sensory exam: Not cooperative. Cerebellar: Not cooperative Review of Relevant I have reviewed the following items venita (where applicable) has been applied. Labs Laboratory Tests Test 06/01/21 11:35 06/01/21 16:50 06/01/21 20:12 06/02/21 06:35 Glucose (Fingerstick) 181 mg/dL (70-99) 195 mg/dL (70-99) 193 mg/dL (70-99) White Blood Count 9.0 x10^3/uL (4.0-11.0) Red Blood Count 3.62 x10^6/uL (3.50-5.40) Hemoglobin 9.7 g/dL (12.0-15.5) Hematocrit 30.9 % (36.0-47.0) Mean Corpuscular Volume 85 fL (79-100) Mean Corpuscular Hemoglobin 27 pg (25-35) Mean Corpuscular Hemoglobin Concent 31 g/dL (31-37) Red Cell Distribution Width 17.7 % (11.5-14.5) Platelet Count 282 x10^3/uL (140-400) Neutrophils (%) (Auto) 59 % (31-73) Lymphocytes (%) (Auto) 21 % (24-48) Monocytes (%) (Auto) 16 % (0-9) Eosinophils (%) (Auto) 2 % (0-3) Basophils (%) (Auto) 1 % (0-3) Neutrophils # (Auto) 5.4 x10^3/uL (1.8-7.7) Lymphocytes # (Auto) 1.9 x10^3/uL (1.0-4.8) Monocytes # (Auto) 1.4 x10^3/uL (0.0-1.1) Eosinophils # (Auto) 0.2 x10^3/uL (0.0-0.7) Basophils # (Auto) 0.1 x10^3/uL (0.0-0.2) Sodium Level 140 mmol/L (136-145) Potassium Level 4.6 mmol/L (3.5-5.1) Chloride Level 106 mmol/L (98-107) Carbon Dioxide Level 32 mmol/L (21-32) Anion Gap 2 (6-14) Blood Urea Nitrogen 31 mg/dL (7-20) Creatinine 0.7 mg/dL (0.6-1.0) Estimated GFR (Cockcroft-Gault) 82.7 Glucose Level 186 mg/dL (70-99) Calcium Level 10.2 mg/dL (8.5-10.1) Test 06/02/21 07:14 06/02/21 11:46 06/02/21 16:39 06/02/21 20:05 Glucose (Fingerstick) 197 mg/dL (70-99) 196 mg/dL (70-99) 174 mg/dL (70-99) 204 mg/dL (70-99) Test 06/03/21 08:07 Glucose (Fingerstick) 210 mg/dL (70-99) Laboratory Tests Test 06/02/21 11:46 06/02/21 16:39 06/02/21 20:05 06/03/21 08:07 Glucose (Fingerstick) 196 mg/dL (70-99) 174 mg/dL (70-99) 204 mg/dL (70-99) 210 mg/dL (70-99) Microbiology 05/29/21 Blood Culture - Final, Complete NO GROWTH AFTER 5 DAYS 05/28/21 CSF Gram Stain - Final, Complete 05/26/21 Urine Culture - Final, Complete 05/26/21 Antimicrobic Susceptibility - Final, Complete Medications Current Medications Ondansetron HCl (Zofran) 4 mg STK-MED ONCE .ROUTE ; Start 05/26/21 at 18:47; Stop 05/26/21 at 18:47; Status DC Ondansetron HCl (Zofran) 4 mg 1X ONCE IVP Last administered on 05/26/21at 19:09; Start 05/26/21 at 19:00; Stop 05/26/21 at 19:01; Status DC Ceftriaxone Sodium (Rocephin) 1 gm 1X ONCE IVP Last administered on 05/26/21at 20:04; Start 05/26/21 at 19:30; Stop 05/26/21 at 19:31; Status DC Acetaminophen (Tylenol) 650 mg PRN Q4HRS PRN PO TEMP OVER 100.4F OR MILD PAIN; Start 05/26/21 at 22:00 Apixaban (Eliquis) 5 mg BID PO ; Start 05/26/21 at 23:00; Stop 05/28/21 at 12:45; Status DC Aspirin (Aspirin Chewable) 81 mg DAILY PO ; Start 05/27/21 at 09:00 Atorvastatin Calcium (Lipitor) 20 mg HS PO ; Start 05/26/21 at 22:30 Cetirizine HCl (ZyrTEC) 10 mg DAILY PO ; Start 05/27/21 at 09:00 Citalopram Hydrobromide (CeleXA) 20 mg DAILY PO ; Start 05/27/21 at 09:00 Divalproex Sodium (Depakote) 500 mg BID PO ; Start 05/26/21 at 23:00; Stop 05/27/21 at 17:46; Status DC Nystatin (Nystop) 15 misbah BID TP Last administered on 06/03/21at 10:29; Start 05/26/21 at 23:00 Pantoprazole Sodium (Protonix) 40 mg DAILYAC PO ; Start 05/27/21 at 07:30; Stop 06/02/21 at 07:35; Status DC Polyethylene Glycol (miraLAX PACKET) 17 gm DAILY PO ; Start 05/27/21 at 09:00 Info (Anti-Coagulation Monitoring By Pharmacy) 1 each PRN DAILY PRN MC PER PROTOCOL; Start 05/26/21 at 22:00; Stop 05/28/21 at 12:45; Status DC Ceftriaxone Sodium (Rocephin) 1 gm Q24H IVP Last administered on 05/27/21at 19:50; Start 05/27/21 at 20:00; Stop 05/28/21 at 11:40; Status DC Ondansetron HCl (Zofran) 4 mg PRN Q6HRS PRN IVP NAUSEA/VOMITING 1ST CHOICE Last administered on 05/27/21at 02:29; Start 05/26/21 at 22:15 Calcium Carbonate/ Glycine (Tums) 500 mg PRN Q3HRS PRN PO UPSET STOMACH; Start 05/26/21 at 22:15 Info (Non-Icu Electrolyte Protocol) 1 ea PRN DAILY PRN MC SEE COMMENTS; Start 05/26/21 at 22:15 Acetaminophen (Tylenol) 650 mg PRN Q6HRS PRN PO Headaches, Temp > 101.5F; Start 05/26/21 at 22:15; Stop 05/26/21 at 23:29; Status DC Senna/Docusate Sodium (Senna Plus) 1 tab BID PO ; Start 05/26/21 at 23:00 Heparin Sodium (Porcine) (Heparin Sodium) 5,000 unit Q8HRS SQ ; Start 05/27/21 at 06:00; Status UNV Sodium Chloride 1,000 ml @ 100 mls/hr Q10H IV Last administered on 05/29/21at 04:32; Start 05/27/21 at 12:45; Stop 05/29/21 at 13:37; Status DC Insulin Human Lispro (HumaLOG) 0-7 UNITS TIDWMEALS SQ Last administered on 05/30/21at 17:56; Start 05/27/21 at 17:00 Dextrose (Dextrose 50%-Water Syringe) 12.5 gm PRN Q15MIN PRN IV SEE COMMENTS; Start 05/27/21 at 12:45; Status Cancel Dextrose (Dextrose 50%-Water Syringe) 12.5 gm PRN Q15MIN PRN IV SEE COMMENTS; Start 05/27/21 at 12:45 Acetaminophen (Tylenol Supp) 650 mg PRN Q6HRS PRN ND MILD PAIN / TEMP > 100.3'F Last administered on 05/28/21at 06:05; Start 05/27/21 at 16:45 Valproic Acid 500 mg/Dextrose 55 ml @ 55 mls/hr Q12HR IV Last administered on 05/31/21at 08:41; Start 05/27/21 at 18:30; Stop 05/31/21 at 10:29; Status DC Daptomycin 400 mg/ Sodium Chloride 50 ml @ 100 mls/hr Q24H IV Last administered on 05/30/21at 12:29; Start 05/28/21 at 12:30; Stop 05/31/21 at 08:24; Status DC Cefepime HCl (Maxipime) 2 gm Q8HRS IVP Last administered on 05/31/21at 06:14; Start 05/28/21 at 14:00; Stop 05/31/21 at 08:25; Status DC Lidocaine HCl (Lidocaine 1% 20ml Vial) 20 ml STK-MED ONCE .ROUTE ; Start 05/28/21 at 12:51; Stop 05/28/21 at 12:51; Status DC Heparin Sodium (Porcine) (Heparin Sodium) 5,000 unit Q12HR SQ Last administered on 06/03/21at 10:16; Start 05/29/21 at 09:00 Sodium Chloride 1,000 ml @ 75 mls/hr 1X ONCE IV ; Start 05/29/21 at 13:45; Stop 05/29/21 at 13:45; Status DC Amino Acids/ Electrolytes/ Dextrose 1,000 ml @ 80 mls/hr [id number] IV Last administered on 06/03/21at 03:38; Start 05/29/21 at 13:45 Hydralazine HCl (Apresoline Inj) 10 mg PRN Q4HRS PRN IVP ELEVATED BP, SEE COMMENTS Last administered on 06/01/21at 02:46; Start 05/31/21 at 08:15 Cefepime HCl (Maxipime) 2 gm Q12HR IVP Last administered on 06/03/21at 10:13; Start 05/31/21 at 09:00 Valproic Acid 250 mg/Dextrose 52.5 ml @ 55 mls/hr Q12HR IV Last administered on 06/01/21at 09:34; Start 05/31/21 at 21:00; Stop 06/01/21 at 09:58; Status DC Pantoprazole Sodium (PROTONIX VIAL for IV PUSH) 40 mg DAILYAC IVP Last administered on 06/03/21at 06:12; Start 06/02/21 at 07:45 Active Scripts Active Augmentin 250-62.5 Mg/5 Ml (Amoxicillin/Potassium Clav) 250 Mg/5 Ml Susp.recon 10 Ml PO BID 7 Days Vitamin D3 (Vitamin D) 25 Mcg Tablet 1,000 Unit PO DAILY 30 Days Vitamin C (Ascorbic Acid) 1,000 Mg Tablet 1,000 Mg PO TID 30 Days Vitamin B-1 (Thiamine Mononitrate) 100 Mg Tablet 100 Mg PO DAILY 30 Days Admelog (Insulin Lispro) 100 Unit/1 Ml Vial 0 Units SQ TIDWMEALS 14 Days Culturelle (Lactobacillus Rhamnosus Gg) 1 Each Cap.sprink 1 Cap PO BID 30 Days Pantoprazole Sodium (Pantoprazole Sodium) 40 Mg Tablet.dr 40 Mg PO DAILYAC 30 Days Zinc Sulfate 50 Mg Capsule 220 Mg PO DAILY 30 Days Acetaminophen 325 Mg Tablet 650 Mg PO PRN Q4HRS PRN 30 Days Reported Zyrtec (Cetirizine Hcl) 10 Mg Tablet 10 Mg PO DAILY Ondansetron Hcl 4 Mg Tablet 4 Mg PO BID PRN Polyethylene Glycol 3350 2,500 Gm Powder 17 Gm PO DAILY Depakote Er (Divalproex Sodium) 500 Mg Tab.er.24h 500 Mg PO BID Colace (Docusate Sodium) 100 Mg Capsule 100 Mg PO BID Celexa (Citalopram Hydrobromide) 20 Mg Tablet 20 Mg PO DAILY Aspirin 81 Mg Tab.chew 81 Mg PO DAILY Eliquis (Apixaban) 5 Mg Tablet 5 Mg PO BID Lantus Solostar (Insulin Glargine,Hum.rec.anlog) 100 Unit/1 Ml Insuln.pen 25 Unit SQ QHS Nystatin 15 Gm Powder 15 Gm TP BID Lipitor (Atorvastatin Calcium) 20 Mg Tablet 20 Mg PO HS Novolog Flexpen (Insulin Aspart) 100 Unit/1 Ml Insuln.pen 16 Unit SQ TIDWMEALS Vitals/I & O Vital Sign - Last 24 Hours 06/02/21 06/02/21 06/02/21 06/02/21 11:00 15:00 19:00 20:00 Temp 98.9 98.4 98.7 98.9 98.4 98.7 Pulse 87 69 77 Resp 22 22 20 B/P (MAP) 182/85 (117) 182/69 (106) 175/82 (113) Pulse Ox 96 97 98 O2 Delivery NonRebreather Mask NonRebreather Mask NonRebreather Mask Non- Rebreather O2 Flow Rate 14.0 14.0 14.0 14.0 06/02/21 06/03/21 06/03/21 23:00 03:00 07:00 Temp 98.4 97.6 98.7 98.4 97.6 98.7 Pulse 77 69 72 Resp 20 20 22 B/P (MAP) 172/79 (110) 172/78 (109) 164/65 (98) Pulse Ox 100 97 95 O2 Delivery NonRebreather Mask NonRebreather Mask NonRebreather Mask O2 Flow Rate 14.0 14.0 14.0 Justicifation of Admission Dx: Justifications for Admission: Justification of Admission Dx: Yes ZAYRA FUNG MD Jun 03, 2021 10:36
[2021-06-03 11:00] VITALS: BP 139/65
--- NOTE | 2021-06-03 12:54 | PDOC ---
[facility] PROGRESS NOTE Date of Service DOS: DATE: 06/03/21 TIME: 12:52 Chief Complaint Chief Complaint UTI Weakness Baseline altered mental status History of type 2 diabetes Hypertension History of Bipolar -Altered mental status at living facility -Found to have UTI. Continue cefepime -DVT prophylaxis -PT OT ordered -Home meds resumed as indicated -We will start sliding scale for blood sugar adjust as needed -Diet as tolerated History of Present Illness History of Present Illness Patient unable to provide history history from emergency room. 70-year-old female who is a [facility]iary resident and is baseline nonverbal from previous stroke patient presents to the emergency department with mental status change at her [facility]. Reportedly she was seen staring off into space for more time than usual and had twitching movements of her face. She was then sent to the ER for further evaluation. She apparently had a urinalysis done at the nursing facility which showed infection but she was not treated for this infection yet. Blood sugar in the field was 120. The patient is unable to provide any history secondary to her baseline mental status. There is no concrete seizure-like activity seen at the nursing facility. 05/27: Low-grade fever overnight (T-max 99.9 F), breathing on 3 L nasal cannula. Continue Rocephin 1 g daily. Will continue to follow urine culture. Unknown baseline mental status, but once we have results of urine culture she can be discharged to complete her antibiotic course as outpatient. If no improvement in her mental status after completion of antibiotic treatment with appropriate sensitivities, will consult neurology. 05/28: Febrile overnight, T-max 102.5 F. Currently on 14 L nonrebreather. No urine cultures to date. Today should be her third dose of Rocephin. Will obtain repeat UA with culture, however concerned that she has been on antibiotics for the past 2 days. Chest x-ray yesterday showed no acute pulmonary finding. Blood cultures yesterday showed gram-positive cocci in clusters, suggestive of staph in 1 of 4 bottles. Initially thought blood cultures may be contaminants, but due to fever and worsening WBC. After c onsultation with ID, next likely source could be CSF. Discussed with daughter and she is agreeable to lumbar puncture. Will place LP orders; she will need to hold her Eliquis likely for 2 days prior to this procedure. Critical care time 30 minutes spent reviewing charts, reviewing labs, reviewing imaging, discussion with daughter, and discussion with Dr. Elkins. 05/29/2021: Afebrile overnight, on 15 L nonrebreather. No significant improvement in mentation. Urine culture growing Klebsiella pneumonia; will continue to follow urine culture for sensitivities. Currently on daptomycin and cefepime. Final blood culture showing Staph capitis; repeat blood cultures pending. CSF results showed no organisms on Gram stain. 05/30/2021: Afebrile, still breathing on 15 L nonrebreather. Discussed with patient's daughter, she had a similar presentation about 1 month ago and clinical response was slow to improve about 2-3 days following her appropriate antibiotic treatment for UTI. Patient was able to follow me with her eyes yesterday and lightly squeeze my hand. This morning she is sleeping deeply; will reevaluate mental status this afternoon. 05/31/2021: See breathing on 14 L nonrebreather. Upon review of her paperwork for medical [place] it is noted that patient is DNR; will make appropriate changes in the EMR. Consultation placed to neurology given appropriate medical treatment and improvement in mental status. Per Dr. Rangel, no additional neurologic tests required at this time, with taper off Depakote. Continue to monitor for clinical recovery. 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 Patient continued to have some significant hypertension; continue as needed hydralazine. Appreciate neurology recommendations. Will continue cefepime, per ID. 06/02/2021: Afebrile. Much more improved today. Opens both eyes to questions and stimulus. Still not speaking. Hopefully she will continue to improve and become more verbal in the next day. 06/03 Patient evaluated examined at bedside. Still did not speak at all but based on previous days report does seem her mental status has improved much more alert. She is afebrile still. Continuing cefepime for now. Infectious disease following. We will continue to closely monitor mental status. Plan of care discussed with bedside RN Vitals/I&O Vitals/I&O: Vital Signs Date Time Temp Pulse Resp B/P (MAP) Pulse Ox O2 Delivery O2 Flow Rate FiO2 06/03/21 11:00 98.5 75 20 139/65 (89) 98 NonRebreather Mask 14.0 98.5 Physical Exam Physical Exam: GENERAL: Well-developed, well-nourished female, opens eyes to stimuli Nonrebreather HEENT: Eyes closed, unable to open mouth, on nonrebreather. NECK: Supple. LUNGS: Clear anteriorly. HEART: S1, S2. No murmurs. ABDOMEN: Soft, nontender, bowel sounds present. EXTREMITIES: No edema, no clubbing, no cyanosis. DERM: No generalized rash, some chronic venous stasis changes present over both the lower extremities, mild redness present. No open wounds noted. CENTRAL NERVOUS SYSTEM: Unable to assess. PSYCHIATRIC: Unable to assess. General: Alert, Other (Will open eyes when aroused, and and lightly squeeze hand.) Heart: Regular rate Lungs: Clear Abdomen: Soft, No tenderness Extremities: No clubbing, No cyanosis Skin: No rashes, No breakdown Labs Labs: Laboratory Tests Test 06/02/21 16:39 06/02/21 20:05 06/03/21 08:07 06/03/21 11:16 Glucose (Fingerstick) 174 mg/dL (70-99) 204 mg/dL (70-99) 210 mg/dL (70-99) 184 mg/dL (70-99) Assessment and Plan Assessmemt and Plan Problems Medical Problems: (1) Altered mental state Status: Acute (2) UTI (urinary tract infection) Status: Acute Comment Review of Relevant I have reviewed the following items venita (where applicable) has been applied. Justifications for Admission Other Justification Altered mental status and acute UTI WENDY LE MD Jun 03, 2021 12:54
[2021-06-03 15:00] VITALS: BP 180/84
[2021-06-03] MEDS: hydrALAZINE 20 MG/ML VIAL. IVP PRN (17:09)
[2021-06-03 19:00] VITALS: BP 176/73
[2021-06-03] MEDS: ATORVASTATIN CALCIUM 20 MG TABLET PO SCH (21:00)
[2021-06-03 23:00] VITALS: BP 156/70
[2021-06-04 03:00] VITALS: BP 159/60
[2021-06-04] MEDS: AA 4.25 %/CALCIUM/LYTES/D5W 1,000 ML IV SCH ×2 (04:46→17:12)
[2021-06-04 07:00] VITALS: BP 103/49
[2021-06-04] MEDS: SENNOSIDES/DOCUSATE 8.6/50MG TABLET. PO SCH ×2 (08:12→21:00)
[2021-06-04] MEDS: ASPIRIN CHEWABLE 81 MG TABLET. PO SCH (08:12)
[2021-06-04] MEDS: POLYETHYLENE GLYCOL 3350 17 GM PACKET. PO SCH (08:12)
[2021-06-04] MEDS: CITALOPRAM 20 MG TABLET. PO SCH (08:12)
[2021-06-04] MEDS: CETIRIZINE HCL 10 MG TABLET. PO SCH (08:13)
[2021-06-04] MEDS: NYSTATIN TOPICAL POWDER 15GM BOTTLE. TP SCH ×2 (08:21→21:55)
[2021-06-04] MEDS: CEFEPIME HCL IV Push 2 GM VIAL. IVP SCH ×2 (08:21→21:56)
--- NOTE | 2021-06-04 08:23 | PDOC ---
Infectious Disease Note Subjective: Subjective Patient continues to remain on nonrebreather Opens eyes with stimuli Does not answer any questions Remains afebrile for last couple of days Discussed with nursing staff Vital Signs: Vital Signs Vital Signs Date Time Temp Pulse Resp B/P (MAP) Pulse Ox O2 Delivery O2 Flow Rate FiO2 06/04/21 07:00 98.1 76 18 103/49 (67) 93 NonRebreather Mask 15.0 98.1 Physical Exam: PHYSICAL EXAM GENERAL: Well-developed, well-nourished female, opens eyes to stimuli Nonrebreather HEENT: Eyes closed, unable to open mouth, on nonrebreather. NECK: Supple. LUNGS: Clear anteriorly. HEART: S1, S2. No murmurs. ABDOMEN: Soft, nontender, bowel sounds present. EXTREMITIES: No edema, no clubbing, no cyanosis. DERM: No generalized rash, some chronic venous stasis changes present over both the lower extremities, mild redness present. No open wounds noted. CENTRAL NERVOUS SYSTEM: Unable to assess. PSYCHIATRIC: Unable to assess. Medications: Inpatient Meds: Medications reviewed. Labs: Lab Laboratory Tests Test 06/03/21 11:16 06/03/21 17:00 06/03/21 21:05 06/04/21 08:07 Glucose (Fingerstick) 184 mg/dL (70-99) 196 mg/dL (70-99) 228 mg/dL (70-99) 286 mg/dL (70-99) Objective: Assessment: 1. Encephalopathy with history of cerebrovascular accident, aphasia at baseline, unclear. Etiology appears more metabolic. Lumbar puncture negative, Gram stain negative Neurology input appreciated 2. Sepsis. Appears multifactorial 3. Gram-positive bacteremia in 1/4 bottles present on admission,Coagulase- negative staph likely contaminant 4. Fever, T-max 102.5 despite pathogen directed therapy. Fever pattern improving 5. Leukocytosis. Pattern improving 6. long term resident. 7. Urinary tract infection. Urine culture positive for Klebsiella pneumoniae. 8. Acute hypoxic respiratory failure requiring nonrebreather. 9. Diabetes mellitus. 10. History of bipolar disorder. Per team patient remains full code Plan: Plan of Care Patient still remains on nonrebreather Mental status improving though slowly, baseline unclear, does not answer any questions,daughter lives out of state per discussion with Dr. Banegas Continue cefepime CT abdomen and pelvis reviewed Maintain aspiration precaution Repeat blood cultures Follow-up labs and cultures Continue supportive care Prognosis poor Discussed with nursing staff ELZBIETA WARREN MD Jun 04, 2021 08:23
[2021-06-04] MEDS: HEPARIN for SUB-Q USE 5,000 UNIT/ML VIAL. SQ SCH ×2 (08:24→22:20)
[2021-06-04] MEDS: INSULIN LISPRO 300 UNITS/3 ML VIAL. SQ SCH ×3 (08:24→17:17)
[2021-06-04] MEDS: PANTOPRAZOLE IV PUSH 40 MG VIAL. IVP SCH (08:28)
--- NOTE | 2021-06-04 10:12 | PDOC ---
PROGRESS NOTES Date of Service DATE: 06/04/21 TIME: 10:05 Assessment Problems Medical Problems: (1) Altered mental state Status: Acute (2) UTI (urinary tract infection) Status: Acute Metabolic encephalopathy in dementia, urinary tract infection, sepsis and fevers, respiratory failure on nonrebreather mask, negative lumbar puncture. She is brighter today History of subdural hematoma and stroke, drug-induced parkinsonism, diabetic neuropathy with gait disorder, bipolar disorder, schizophrenia, and cervical dystonia. History of diabetes and cardiac disease She was at earlier this month for UTI and tremors/myoclonus, EEG was negative, they used the valproic acid for bipolar and myoclonus. I tapered her off of it, there are no reported seizures or myoclonus, she is more alert Plan Continue to treat medical diseases DNR No additional neurological tests required, in particular I am holding off on electroencephalogram and MRI. Discussed with daughter Anabel on 06/04, she plans to come to [place] to make decisions about hospice Subjective None Objective Vital Signs Date Time Temp Pulse Resp B/P (MAP) Pulse Ox O2 Delivery O2 Flow Rate FiO2 06/04/21 07:20 Non-Rebreather 15.0 06/04/21 07:00 98.1 76 18 103/49 (67) 93 98.1 Intake and Output 06/04/21 07:00 Intake Total 1920 ml Output Total 300 ml Balance 1620 ml Intake Oral 0 ml IV Total 960 ml Other 960 ml Urine/Stool Mix 300 ml # Voids 1 PHYSICAL EXAM On rebreather mask, eyes open, regards observer, tries to mouth some replies, moves to command PERRL. EOMI. CN: no focal findings. Muscle tone: normal. Muscle strength: Moves all extremities DTR: 1+ Plantar reflex: Silent Gait: not examined in bed. Sensory exam: Not cooperative. Review of Relevant I have reviewed the following items venita (where applicable) has been applied. Labs Laboratory Tests Test 06/02/21 11:46 06/02/21 16:39 06/02/21 20:05 06/03/21 08:07 Glucose (Fingerstick) 196 mg/dL (70-99) 174 mg/dL (70-99) 204 mg/dL (70-99) 210 mg/dL (70-99) Test 06/03/21 11:16 06/03/21 17:00 06/03/21 21:05 06/04/21 08:07 Glucose (Fingerstick) 184 mg/dL (70-99) 196 mg/dL (70-99) 228 mg/dL (70-99) 286 mg/dL (70-99) Laboratory Tests Test 06/03/21 11:16 06/03/21 17:00 06/03/21 21:05 06/04/21 08:07 Glucose (Fingerstick) 184 mg/dL (70-99) 196 mg/dL (70-99) 228 mg/dL (70-99) 286 mg/dL (70-99) Microbiology 05/29/21 Blood Culture - Final, Complete NO GROWTH AFTER 5 DAYS 05/28/21 CSF Gram Stain - Final, Complete 05/26/21 Urine Culture - Final, Complete 05/26/21 Antimicrobic Susceptibility - Final, Complete Medications Current Medications Ondansetron HCl (Zofran) 4 mg STK-MED ONCE .ROUTE ; Start 05/26/21 at 18:47; Stop 05/26/21 at 18:47; Status DC Ondansetron HCl (Zofran) 4 mg 1X ONCE IVP Last administered on 05/26/21at 19:09; Start 05/26/21 at 19:00; Stop 05/26/21 at 19:01; Status DC Ceftriaxone Sodium (Rocephin) 1 gm 1X ONCE IVP Last administered on 05/26/21at 20:04; Start 05/26/21 at 19:30; Stop 05/26/21 at 19:31; Status DC Acetaminophen (Tylenol) 650 mg PRN Q4HRS PRN PO TEMP OVER 100.4F OR MILD PAIN; Start 05/26/21 at 22:00 Apixaban (Eliquis) 5 mg BID PO ; Start 05/26/21 at 23:00; Stop 05/28/21 at 12:45; Status DC Aspirin (Aspirin Chewable) 81 mg DAILY PO ; Start 05/27/21 at 09:00 Atorvastatin Calcium (Lipitor) 20 mg HS PO ; Start 05/26/21 at 22:30 Cetirizine HCl (ZyrTEC) 10 mg DAILY PO ; Start 05/27/21 at 09:00 Citalopram Hydrobromide (CeleXA) 20 mg DAILY PO ; Start 05/27/21 at 09:00 Divalproex Sodium (Depakote) 500 mg BID PO ; Start 05/26/21 at 23:00; Stop 05/27/21 at 17:46; Status DC Nystatin (Nystop) 15 misbah BID TP Last administered on 06/04/21at 08:21; Start 05/26/21 at 23:00 Pantoprazole Sodium (Protonix) 40 mg DAILYAC PO ; Start 05/27/21 at 07:30; Stop 06/02/21 at 07:35; Status DC Polyethylene Glycol (miraLAX PACKET) 17 gm DAILY PO ; Start 05/27/21 at 09:00 Info (Anti-Coagulation Monitoring By Pharmacy) 1 each PRN DAILY PRN MC PER PROTOCOL; Start 05/26/21 at 22:00; Stop 05/28/21 at 12:45; Status DC Ceftriaxone Sodium (Rocephin) 1 gm Q24H IVP Last administered on 05/27/21at 19:50; Start 05/27/21 at 20:00; Stop 05/28/21 at 11:40; Status DC Ondansetron HCl (Zofran) 4 mg PRN Q6HRS PRN IVP NAUSEA/VOMITING 1ST CHOICE Last administered on 05/27/21at 02:29; Start 05/26/21 at 22:15 Calcium Carbonate/ Glycine (Tums) 500 mg PRN Q3HRS PRN PO UPSET STOMACH; Start 05/26/21 at 22:15 Info (Non-Icu Electrolyte Protocol) 1 ea PRN DAILY PRN MC SEE COMMENTS; Start 05/26/21 at 22:15 Acetaminophen (Tylenol) 650 mg PRN Q6HRS PRN PO Headaches, Temp > 101.5F; Start 05/26/21 at 22:15; Stop 05/26/21 at 23:29; Status DC Senna/Docusate Sodium (Senna Plus) 1 tab BID PO ; Start 05/26/21 at 23:00 Heparin Sodium (Porcine) (Heparin Sodium) 5,000 unit Q8HRS SQ ; Start 05/27/21 at 06:00; Status UNV Sodium Chloride 1,000 ml @ 100 mls/hr Q10H IV Last administered on 05/29/21at 04:32; Start 05/27/21 at 12:45; Stop 05/29/21 at 13:37; Status DC Insulin Human Lispro (HumaLOG) 0-7 UNITS TIDWMEALS SQ Last administered on 06/04/21at 08:24; Start 05/27/21 at 17:00 Dextrose (Dextrose 50%-Water Syringe) 12.5 gm PRN Q15MIN PRN IV SEE COMMENTS; Start 05/27/21 at 12:45; Status Cancel Dextrose (Dextrose 50%-Water Syringe) 12.5 gm PRN Q15MIN PRN IV SEE COMMENTS; Start 05/27/21 at 12:45 Acetaminophen (Tylenol Supp) 650 mg PRN Q6HRS PRN FL MILD PAIN / TEMP > 100.3'F Last administered on 05/28/21at 06:05; Start 05/27/21 at 16:45 Valproic Acid 500 mg/Dextrose 55 ml @ 55 mls/hr Q12HR IV Last administered on 05/31/21at 08:41; Start 05/27/21 at 18:30; Stop 05/31/21 at 10:29; Status DC Daptomycin 400 mg/ Sodium Chloride 50 ml @ 100 mls/hr Q24H IV Last administered on 05/30/21at 12:29; Start 05/28/21 at 12:30; Stop 05/31/21 at 08:24; Status DC Cefepime HCl (Maxipime) 2 gm Q8HRS IVP Last administered on 05/31/21at 06:14; Start 05/28/21 at 14:00; Stop 05/31/21 at 08:25; Status DC Lidocaine HCl (Lidocaine 1% 20ml Vial) 20 ml STK-MED ONCE .ROUTE ; Start 05/28/21 at 12:51; Stop 05/28/21 at 12:51; Status DC Heparin Sodium (Porcine) (Heparin Sodium) 5,000 unit Q12HR SQ Last administered on 06/04/21at 08:24; Start 05/29/21 at 09:00 Sodium Chloride 1,000 ml @ 75 mls/hr 1X ONCE IV ; Start 05/29/21 at 13:45; Stop 05/29/21 at 13:45; Status DC Amino Acids/ Electrolytes/ Dextrose 1,000 ml @ 80 mls/hr [id number] IV Last administered on 06/04/21at 04:46; Start 05/29/21 at 13:45 Hydralazine HCl (Apresoline Inj) 10 mg PRN Q4HRS PRN IVP ELEVATED BP, SEE COMMENTS Last administered on 06/03/21at 17:09; Start 05/31/21 at 08:15 Cefepime HCl (Maxipime) 2 gm Q12HR IVP Last administered on 06/04/21at 08:21; Start 05/31/21 at 09:00 Valproic Acid 250 mg/Dextrose 52.5 ml @ 55 mls/hr Q12HR IV Last administered on 06/01/21at 09:34; Start 05/31/21 at 21:00; Stop 06/01/21 at 09:58; Status DC Pantoprazole Sodium (PROTONIX VIAL for IV PUSH) 40 mg DAILYAC IVP Last administered on 06/04/21at 08:28; Start 06/02/21 at 07:45 Active Scripts Active Augmentin 250-62.5 Mg/5 Ml (Amoxicillin/Potassium Clav) 250 Mg/5 Ml Susp.recon 10 Ml PO BID 7 Days Vitamin D3 (Vitamin D) 25 Mcg Tablet 1,000 Unit PO DAILY 30 Days Vitamin C (Ascorbic Acid) 1,000 Mg Tablet 1,000 Mg PO TID 30 Days Vitamin B-1 (Thiamine Mononitrate) 100 Mg Tablet 100 Mg PO DAILY 30 Days Admelog (Insulin Lispro) 100 Unit/1 Ml Vial 0 Units SQ TIDWMEALS 14 Days Culturelle (Lactobacillus Rhamnosus Gg) 1 Each Cap.sprink 1 Cap PO BID 30 Days Pantoprazole Sodium (Pantoprazole Sodium) 40 Mg Tablet.dr 40 Mg PO DAILYAC 30 Days Zinc Sulfate 50 Mg Capsule 220 Mg PO DAILY 30 Days Acetaminophen 325 Mg Tablet 650 Mg PO PRN Q4HRS PRN 30 Days Reported Zyrtec (Cetirizine Hcl) 10 Mg Tablet 10 Mg PO DAILY Ondansetron Hcl 4 Mg Tablet 4 Mg PO BID PRN Polyethylene Glycol 3350 2,500 Gm Powder 17 Gm PO DAILY Depakote Er (Divalproex Sodium) 500 Mg Tab.er.24h 500 Mg PO BID Colace (Docusate Sodium) 100 Mg Capsule 100 Mg PO BID Celexa (Citalopram Hydrobromide) 20 Mg Tablet 20 Mg PO DAILY Aspirin 81 Mg Tab.chew 81 Mg PO DAILY Eliquis (Apixaban) 5 Mg Tablet 5 Mg PO BID Lantus Solostar (Insulin Glargine,Hum.rec.anlog) 100 Unit/1 Ml Insuln.pen 25 Unit SQ QHS Nystatin 15 Gm Powder 15 Gm TP BID Lipitor (Atorvastatin Calcium) 20 Mg Tablet 20 Mg PO HS Novolog Flexpen (Insulin Aspart) 100 Unit/1 Ml Insuln.pen 16 Unit SQ TIDWMEALS Vitals/I & O Vital Sign - Last 24 Hours 06/03/21 06/03/21 06/03/21 06/03/21 11:00 15:00 17:09 19:00 Temp 98.5 98.3 97.4 98.5 98.3 97.4 Pulse 75 78 78 89 Resp 20 20 18 B/P (MAP) 139/65 (89) 180/84 (116) 180/84 176/73 (107) Pulse Ox 98 100 99 O2 Delivery NonRebreather Mask NonRebreather Mask NonRebreather Mask O2 Flow Rate 14.0 14.0 15.0 06/03/21 06/03/21 06/04/21 06/04/21 19:50 23:00 03:00 07:00 Temp 97.6 98.7 98.1 97.6 98.7 98.1 Pulse 80 83 76 Resp 20 20 18 B/P (MAP) 156/70 (98) 159/60 (93) 103/49 (67) Pulse Ox 95 93 93 O2 Delivery Non-Rebreather NonRebreather Mask NonRebreather Mask NonRebreather Mask O2 Flow Rate 14.0 15.0 15.0 15.0 06/04/21 07:20 O2 Delivery Non-Rebreather O2 Flow Rate 15.0 Intake and Output 06/03/21 06/03/21 06/04/21 15:00 23:00 07:00 Intake Total 0 ml 1920 ml Output Total 300 ml Balance 0 ml 1620 ml Justicifation of Admission Dx: Justifications for Admission: Justification of Admission Dx: Yes ZAYRA FUNG MD Jun 04, 2021 10:12
--- NOTE | 2021-06-04 10:22 | NUR ---
SW following. Discussed with RN, pt from [facility], 15L NRB, NPO. KARLA requested PCR COVID test for return to placement. KARLA will continue to follow. Addendum: 06/04/21 at [address] Henry spoke with pt's daughter, Lubna about hospice. Lubna is agreeable and would prefer hospice back at [facility]. KARLA spoke with Lubna, she understands inpatient hospice VS facility hospice and whether pt can return with current oxygen needs or not. Lubna agreeable to [facility] hospice to eval and treat. KARLA faxed referral to [facility], awaiting acceptance decision. Lubna is travelling from [place] to [place] tomorrow to be with her mother.
--- NOTE | 2021-06-04 10:30 | NUR ---
Covid swab collected and walked down to the lab.
[2021-06-04 11:22] VITALS: BP 181/67
[2021-06-04 15:25] VITALS: BP 161/77
--- NOTE | 2021-06-04 15:56 | PDOC ---
[facility] PROGRESS NOTE Date of Service DOS: DATE: 06/04/21 TIME: 15:54 Chief Complaint Chief Complaint UTI Weakness Baseline altered mental status History of type 2 diabetes Hypertension History of Bipolar -Altered mental status at living facility -Found to have UTI. Continue cefepime -DVT prophylaxis -PT OT ordered -Home meds resumed as indicated -We will start sliding scale for blood sugar adjust as needed -Diet as tolerated History of Present Illness History of Present Illness Patient unable to provide history history from emergency room. 70-year-old female who is a penitentiary resident and is baseline nonverbal from previous stroke patient presents to the emergency department with mental status change at her [facility]. Reportedly she was seen staring off into space for more time than usual and had twitching movements of her face. She was then sent to the ER for further evaluation. She apparently had a urinalysis done at the nursing facility which showed infection but she was not treated for this infection yet. Blood sugar in the field was 120. The patient is unable to provide any history secondary to her baseline mental status. There is no concrete seizure-like activity seen at the nursing facility. 05/27: Low-grade fever overnight (T-max 99.9 F), breathing on 3 L nasal cannula. Continue Rocephin 1 g daily. Will continue to follow urine culture. Unknown baseline mental status, but once we have results of urine culture she can be discharged to complete her antibiotic course as outpatient. If no improvement in her mental status after completion of antibiotic treatment with appropriate sensitivities, will consult neurology. 05/28: Febrile overnight, T-max 102.5 F. Currently on 14 L nonrebreather. No urine cultures to date. Today should be her third dose of Rocephin. Will obtain repeat UA with culture, however concerned that she has been on antibiotics for the past 2 days. Chest x-ray yesterday showed no acute pulmonary finding. Blood cultures yesterday showed gram-positive cocci in clusters, suggestive of staph in 1 of 4 bottles. Initially thought blood cultures may be contaminants, but due to fever and worsening WBC. After c onsultation with ID, next likely source could be CSF. Discussed with daughter and she is agreeable to lumbar puncture. Will place LP orders; she will need to hold her Eliquis likely for 2 days prior to this procedure. Critical care time 30 minutes spent reviewing charts, reviewing labs, reviewing imaging, discussion with daughter, and discussion with Dr. Elkins. 05/29/2021: Afebrile overnight, on 15 L nonrebreather. No significant improvement in mentation. Urine culture growing Klebsiella pneumonia; will continue to follow urine culture for sensitivities. Currently on daptomycin and cefepime. Final blood culture showing Staph capitis; repeat blood cultures pending. CSF results showed no organisms on Gram stain. 05/30/2021: Afebrile, still breathing on 15 L nonrebreather. Discussed with patient's daughter, she had a similar presentation about 1 month ago and clinical response was slow to improve about 2-3 days following her appropriate antibiotic treatment for UTI. Patient was able to follow me with her eyes yesterday and lightly squeeze my hand. This morning she is sleeping deeply; will reevaluate mental status this afternoon. 05/31/2021: See breathing on 14 L nonrebreather. Upon review of her paperwork for [facility] it is noted that patient is DNR; will make appropriate changes in the EMR. Consultation placed to neurology given appropriate medical treatment and improvement in mental status. Per Dr. Rangel, no additional neurologic tests required at this time, with taper off Depakote. Continue to monitor for clinical recovery. 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 Patient continued to have some significant hypertension; continue as needed hydralazine. Appreciate neurology recommendations. Will continue cefepime, per ID. 06/02/2021: Afebrile. Much more improved today. Opens both eyes to questions and stimulus. Still not speaking. Hopefully she will continue to improve and become more verbal in the next day. 06/03 Patient evaluated examined at bedside. Still did not speak at all but based on previous days report does seem her mental status has improved much more alert. She is afebrile still. Continuing cefepime for now. Infectious disease following. We will continue to closely monitor mental status. Plan of care discussed with bedside RN 06/04 Patient evaluated and examined at bedside. Mental status not quite as alert as yesterday. Really overall not much improvement. Remains notably altered. Contacted daughter and spoke with her on the phone for approximately 25 minutes about patient's case and future plans. Patient daughter reported she had thought about it and discussed with some family members and they are ready to pursue hospice. Notified social work and referral sent. Continue current treatments for now until family members can arrive tomorrow. Hospice eval pending. Vitals/I&O Vitals/I&O: Vital Signs Date Time Temp Pulse Resp B/P (MAP) Pulse Ox O2 Delivery O2 Flow Rate FiO2 06/04/21 15:25 98.1 82 18 161/77 (105) 99 NonRebreather Mask 15.0 98.1 I & O 06/03/21 06/03/21 06/04/21 15:00 23:00 07:00 Intake Total 0 ml 1920 ml Output Total 300 ml Balance 0 ml 1620 ml Physical Exam Physical Exam: GENERAL: Well-developed, well-nourished female, opens eyes to stimuli Nonrebreather HEENT: Eyes closed, unable to open mouth, on nonrebreather. NECK: Supple. LUNGS: Clear anteriorly. HEART: S1, S2. No murmurs. ABDOMEN: Soft, nontender, bowel sounds present. EXTREMITIES: No edema, no clubbing, no cyanosis. DERM: No generalized rash, some chronic venous stasis changes present over both the lower extremities, mild redness present. No open wounds noted. CENTRAL NERVOUS SYSTEM: Unable to assess. PSYCHIATRIC: Unable to assess. General: Alert, Other (Will open eyes when aroused, and and lightly squeeze hand.) Heart: Regular rate Lungs: Clear Abdomen: Soft, No tenderness Extremities: No clubbing, No cyanosis Skin: No rashes, No breakdown Labs Labs: Laboratory Tests Test 06/03/21 17:00 06/03/21 21:05 06/04/21 08:07 06/04/21 10:30 Glucose (Fingerstick) 196 mg/dL (70-99) 228 mg/dL (70-99) 286 mg/dL (70-99) SARS-CoV-2 RNA (LOGAN) Negative (Negative) Test 06/04/21 11:50 Glucose (Fingerstick) 252 mg/dL (70-99) Assessment and Plan Assessmemt and Plan Problems Medical Problems: (1) Altered mental state Status: Acute (2) UTI (urinary tract infection) Status: Acute Comment Review of Relevant I have reviewed the following items venita (where applicable) has been applied. Justifications for Admission Other Justification Altered mental status and acute UTI WENDY LE MD Jun 04, 2021 15:55
[2021-06-04 19:15] VITALS: BP 156/78
[2021-06-04] MEDS: ATORVASTATIN CALCIUM 20 MG TABLET PO SCH (21:00)
[2021-06-04 23:03] VITALS: BP 107/84
[2021-06-05 03:00] VITALS: BP 150/74
[2021-06-05] MEDS: AA 4.25 %/CALCIUM/LYTES/D5W 1,000 ML IV SCH (04:43)
[2021-06-05 07:00] VITALS: BP 155/81
--- NOTE | 2021-06-05 08:43 | PDOC ---
Infectious Disease Note Subjective: Subjective Patient continues to remain on nonrebreather Opens eyes with stimuli Does not answer any questions Remains afebrile for last couple of days Discussed with nursing staff Vital Signs: Vital Signs Vital Signs Date Time Temp Pulse Resp B/P (MAP) Pulse Ox O2 Delivery O2 Flow Rate FiO2 06/05/21 07:00 97.5 79 20 155/81 (105) 100 NonRebreather Mask 15.0 97.5 Physical Exam: PHYSICAL EXAM GENERAL: Well-developed, well-nourished female, opens eyes to stimuli Nonrebreather HEENT: Eyes closed, unable to open mouth, on nonrebreather. NECK: Supple. LUNGS: Clear anteriorly. HEART: S1, S2. No murmurs. ABDOMEN: Soft, nontender, bowel sounds present. EXTREMITIES: No edema, no clubbing, no cyanosis. DERM: No generalized rash, some chronic venous stasis changes present over both the lower extremities, mild redness present. No open wounds noted. CENTRAL NERVOUS SYSTEM: Unable to assess. PSYCHIATRIC: Unable to assess. Medications: Inpatient Meds: Medications reviewed. Labs: Lab Laboratory Tests Test 06/04/21 10:30 06/04/21 11:50 06/04/21 16:42 06/04/21 20:39 SARS-CoV-2 RNA (LOGAN) Negative (Negative) Glucose (Fingerstick) 252 mg/dL (70-99) 230 mg/dL (70-99) 215 mg/dL (70-99) Test 06/05/21 08:26 Glucose (Fingerstick) 269 mg/dL (70-99) Objective: Assessment: 1. Encephalopathy with history of cerebrovascular accident, aphasia at baseline, unclear. Etiology appears more metabolic. Lumbar puncture negative, Gram stain negative Neurology input appreciated 2. Sepsis. Appears multifactorial 3. Gram-positive bacteremia in 1/4 bottles present on admission,Coagulase- negative staph likely contaminant 4. Fever, T-max 102.5 despite pathogen directed therapy. Fever pattern improving 5. Leukocytosis. Pattern improving 6. care home resident. 7. Urinary tract infection. Urine culture positive for Klebsiella pneumoniae. 8. Acute hypoxic respiratory failure requiring nonrebreather. 9. Diabetes mellitus. 10. History of bipolar disorder. Per team patient remains full code Plan: Plan of Care Continue cefepime CT abdomen and pelvis reviewed Maintain aspiration precaution Repeat blood cultures negative so far Follow-up labs and cultures Continue supportive care Prognosis poor Discussed with nursing staff ELZBIETA WARREN MD Jun 05, 2021 08:43
[2021-06-05] MEDS: CETIRIZINE HCL 10 MG TABLET. PO SCH (09:00)
[2021-06-05] MEDS: CITALOPRAM 20 MG TABLET. PO SCH (09:00)
[2021-06-05] MEDS: SENNOSIDES/DOCUSATE 8.6/50MG TABLET. PO SCH (09:00)
[2021-06-05] MEDS: POLYETHYLENE GLYCOL 3350 17 GM PACKET. PO SCH (09:00)
[2021-06-05] MEDS: ASPIRIN CHEWABLE 81 MG TABLET. PO SCH (09:00)
[2021-06-05] MEDS: INSULIN LISPRO 300 UNITS/3 ML VIAL. SQ SCH ×2 (09:30→12:38)
[2021-06-05] MEDS: HEPARIN for SUB-Q USE 5,000 UNIT/ML VIAL. SQ SCH (09:30)
[2021-06-05] MEDS: PANTOPRAZOLE IV PUSH 40 MG VIAL. IVP SCH (09:31)
[2021-06-05] MEDS: CEFEPIME HCL IV Push 2 GM VIAL. IVP SCH (09:31)
[2021-06-05] MEDS: NYSTATIN TOPICAL POWDER 15GM BOTTLE. TP SCH (09:31)
--- NOTE | 2021-06-05 09:42 | PDOC ---
PROGRESS NOTES Date of Service DATE: 06/05/21 TIME: 09:40 Assessment Problems Medical Problems: (1) Altered mental state Status: Acute (2) UTI (urinary tract infection) Status: Acute Metabolic encephalopathy in dementia, urinary tract infection, sepsis and fevers, respiratory failure on nonrebreather mask, negative lumbar puncture. She is brighter today History of subdural hematoma and stroke, drug-induced parkinsonism, diabetic neuropathy with gait disorder, bipolar disorder, schizophrenia, and cervical dystonia. History of diabetes and cardiac disease She was at earlier this month for UTI and tremors/myoclonus, EEG was negative, they used the valproic acid for bipolar and myoclonus. I tapered her off of it, there are no reported seizures or myoclonus, she is more alert Plan Continue to treat medical diseases DNR No additional neurological tests required, in particular I am holding off on electroencephalogram and MRI. I understand daughter is transferring her to hospice, I agree with this Subjective None Objective Vital Signs Date Time Temp Pulse Resp B/P (MAP) Pulse Ox O2 Delivery O2 Flow Rate FiO2 06/05/21 07:00 97.5 79 20 155/81 (105) 100 NonRebreather Mask 15.0 97.5 Intake and Output 06/05/21 07:00 Intake Total 1920 ml Output Total 1201 ml Balance 719 ml Intake Oral 0 ml IV Total 960 ml Other 960 ml Output Urine Total 1 ml Urine/Stool Mix 1200 ml # Voids 3 # Bowel Movements 3 PHYSICAL EXAM On rebreather mask, eyes open, regards observer, non verbal, doesn't follow commands PERRL. EOMI. CN: no focal findings. Muscle tone: normal. Muscle strength: Moves all extremities DTR: 1+ Plantar reflex: Silent Gait: not examined in bed. Sensory exam: Not cooperative. Review of Relevant I have reviewed the following items venita (where applicable) has been applied. Labs Laboratory Tests Test 06/03/21 11:16 06/03/21 17:00 06/03/21 21:05 06/04/21 08:07 Glucose (Fingerstick) 184 mg/dL (70-99) 196 mg/dL (70-99) 228 mg/dL (70-99) 286 mg/dL (70-99) Test 06/04/21 10:30 06/04/21 11:50 06/04/21 16:42 06/04/21 20:39 SARS-CoV-2 RNA (LOGAN) Negative (Negative) Glucose (Fingerstick) 252 mg/dL (70-99) 230 mg/dL (70-99) 215 mg/dL (70-99) Test 06/05/21 08:26 Glucose (Fingerstick) 269 mg/dL (70-99) Laboratory Tests Test 06/04/21 10:30 06/04/21 11:50 06/04/21 16:42 06/04/21 20:39 SARS-CoV-2 RNA (LOGAN) Negative (Negative) Glucose (Fingerstick) 252 mg/dL (70-99) 230 mg/dL (70-99) 215 mg/dL (70-99) Test 06/05/21 08:26 Glucose (Fingerstick) 269 mg/dL (70-99) Microbiology 05/29/21 Blood Culture - Final, Complete NO GROWTH AFTER 5 DAYS 05/28/21 CSF Gram Stain - Final, Complete 05/26/21 Urine Culture - Final, Complete 05/26/21 Antimicrobic Susceptibility - Final, Complete Medications Current Medications Ondansetron HCl (Zofran) 4 mg STK-MED ONCE .ROUTE ; Start 05/26/21 at 18:47; Stop 05/26/21 at 18:47; Status DC Ondansetron HCl (Zofran) 4 mg 1X ONCE IVP Last administered on 05/26/21at 19:09; Start 05/26/21 at 19:00; Stop 05/26/21 at 19:01; Status DC Ceftriaxone Sodium (Rocephin) 1 gm 1X ONCE IVP Last administered on 05/26/21at 20:04; Start 05/26/21 at 19:30; Stop 05/26/21 at 19:31; Status DC Acetaminophen (Tylenol) 650 mg PRN Q4HRS PRN PO TEMP OVER 100.4F OR MILD PAIN; Start 05/26/21 at 22:00 Apixaban (Eliquis) 5 mg BID PO ; Start 05/26/21 at 23:00; Stop 05/28/21 at 12:45; Status DC Aspirin (Aspirin Chewable) 81 mg DAILY PO ; Start 05/27/21 at 09:00 Atorvastatin Calcium (Lipitor) 20 mg HS PO ; Start 05/26/21 at 22:30 Cetirizine HCl (ZyrTEC) 10 mg DAILY PO ; Start 05/27/21 at 09:00 Citalopram Hydrobromide (CeleXA) 20 mg DAILY PO ; Start 05/27/21 at 09:00 Divalproex Sodium (Depakote) 500 mg BID PO ; Start 05/26/21 at 23:00; Stop 05/27/21 at 17:46; Status DC Nystatin (Nystop) 15 misbah BID TP Last administered on 06/05/21at 09:31; Start 05/26/21 at 23:00 Pantoprazole Sodium (Protonix) 40 mg DAILYAC PO ; Start 05/27/21 at 07:30; Stop 06/02/21 at 07:35; Status DC Polyethylene Glycol (miraLAX PACKET) 17 gm DAILY PO ; Start 05/27/21 at 09:00 Info (Anti-Coagulation Monitoring By Pharmacy) 1 each PRN DAILY PRN MC PER PROTOCOL; Start 05/26/21 at 22:00; Stop 05/28/21 at 12:45; Status DC Ceftriaxone Sodium (Rocephin) 1 gm Q24H IVP Last administered on 05/27/21at 19:50; Start 05/27/21 at 20:00; Stop 05/28/21 at 11:40; Status DC Ondansetron HCl (Zofran) 4 mg PRN Q6HRS PRN IVP NAUSEA/VOMITING 1ST CHOICE Last administered on 05/27/21at 02:29; Start 05/26/21 at 22:15 Calcium Carbonate/ Glycine (Tums) 500 mg PRN Q3HRS PRN PO UPSET STOMACH; Start 05/26/21 at 22:15 Info (Non-Icu Electrolyte Protocol) 1 ea PRN DAILY PRN MC SEE COMMENTS; Start 05/26/21 at 22:15 Acetaminophen (Tylenol) 650 mg PRN Q6HRS PRN PO Headaches, Temp > 101.5F; Start 05/26/21 at 22:15; Stop 05/26/21 at 23:29; Status DC Senna/Docusate Sodium (Senna Plus) 1 tab BID PO ; Start 05/26/21 at 23:00 Heparin Sodium (Porcine) (Heparin Sodium) 5,000 unit Q8HRS SQ ; Start 05/27/21 at 06:00; Status UNV Sodium Chloride 1,000 ml @ 100 mls/hr Q10H IV Last administered on 05/29/21at 04:32; Start 05/27/21 at 12:45; Stop 05/29/21 at 13:37; Status DC Insulin Human Lispro (HumaLOG) 0-7 UNITS TIDWMEALS SQ Last administered on 06/05/21at 09:30; Start 05/27/21 at 17:00 Dextrose (Dextrose 50%-Water Syringe) 12.5 gm PRN Q15MIN PRN IV SEE COMMENTS; Start 05/27/21 at 12:45; Status Cancel Dextrose (Dextrose 50%-Water Syringe) 12.5 gm PRN Q15MIN PRN IV SEE COMMENTS; Start 05/27/21 at 12:45 Acetaminophen (Tylenol Supp) 650 mg PRN Q6HRS PRN [place] MILD PAIN / TEMP > 100.3'F Last administered on 05/28/21at 06:05; Start 05/27/21 at 16:45 Valproic Acid 500 mg/Dextrose 55 ml @ 55 mls/hr Q12HR IV Last administered on 05/31/21at 08:41; Start 05/27/21 at 18:30; Stop 05/31/21 at 10:29; Status DC Daptomycin 400 mg/ Sodium Chloride 50 ml @ 100 mls/hr Q24H IV Last administered on 05/30/21at 12:29; Start 05/28/21 at 12:30; Stop 05/31/21 at 08:24; Status DC Cefepime HCl (Maxipime) 2 gm Q8HRS IVP Last administered on 05/31/21at 06:14; Start 05/28/21 at 14:00; Stop 05/31/21 at 08:25; Status DC Lidocaine HCl (Lidocaine 1% 20ml Vial) 20 ml STK-MED ONCE .ROUTE ; Start 05/28/21 at 12:51; Stop 05/28/21 at 12:51; Status DC Heparin Sodium (Porcine) (Heparin Sodium) 5,000 unit Q12HR SQ Last administered on 06/05/21at 09:30; Start 05/29/21 at 09:00 Sodium Chloride 1,000 ml @ 75 mls/hr 1X ONCE IV ; Start 05/29/21 at 13:45; Stop 05/29/21 at 13:45; Status DC Amino Acids/ Electrolytes/ Dextrose 1,000 ml @ 80 mls/hr [id number] IV Last administered on 06/05/21at 04:43; Start 05/29/21 at 13:45 Hydralazine HCl (Apresoline Inj) 10 mg PRN Q4HRS PRN IVP ELEVATED BP, SEE COMMENTS Last administered on 06/03/21at 17:09; Start 05/31/21 at 08:15 Cefepime HCl (Maxipime) 2 gm Q12HR IVP Last administered on 06/05/21at 09:31; Start 05/31/21 at 09:00 Valproic Acid 250 mg/Dextrose 52.5 ml @ 55 mls/hr Q12HR IV Last administered on 06/01/21at 09:34; Start 05/31/21 at 21:00; Stop 06/01/21 at 09:58; Status DC Pantoprazole Sodium (PROTONIX VIAL for IV PUSH) 40 mg DAILYAC IVP Last administered on 06/05/21at 09:31; Start 06/02/21 at 07:45 Active Scripts Active Augmentin 250-62.5 Mg/5 Ml (Amoxicillin/Potassium Clav) 250 Mg/5 Ml Susp.recon 10 Ml PO BID 7 Days Vitamin D3 (Vitamin D) 25 Mcg Tablet 1,000 Unit PO DAILY 30 Days Vitamin C (Ascorbic Acid) 1,000 Mg Tablet 1,000 Mg PO TID 30 Days Vitamin B-1 (Thiamine Mononitrate) 100 Mg Tablet 100 Mg PO DAILY 30 Days Admelog (Insulin Lispro) 100 Unit/1 Ml Vial 0 Units SQ TIDWMEALS 14 Days Culturelle (Lactobacillus Rhamnosus Gg) 1 Each Cap.sprink 1 Cap PO BID 30 Days Pantoprazole Sodium (Pantoprazole Sodium) 40 Mg Tablet.dr 40 Mg PO DAILYAC 30 Days Zinc Sulfate 50 Mg Capsule 220 Mg PO DAILY 30 Days Acetaminophen 325 Mg Tablet 650 Mg PO PRN Q4HRS PRN 30 Days Reported Zyrtec (Cetirizine Hcl) 10 Mg Tablet 10 Mg PO DAILY Ondansetron Hcl 4 Mg Tablet 4 Mg PO BID PRN Polyethylene Glycol 3350 2,500 Gm Powder 17 Gm PO DAILY Depakote Er (Divalproex Sodium) 500 Mg Tab.er.24h 500 Mg PO BID Colace (Docusate Sodium) 100 Mg Capsule 100 Mg PO BID Celexa (Citalopram Hydrobromide) 20 Mg Tablet 20 Mg PO DAILY Aspirin 81 Mg Tab.chew 81 Mg PO DAILY Eliquis (Apixaban) 5 Mg Tablet 5 Mg PO BID Lantus Solostar (Insulin Glargine,Hum.rec.anlog) 100 Unit/1 Ml Insuln.pen 25 Unit SQ QHS Nystatin 15 Gm Powder 15 Gm TP BID Lipitor (Atorvastatin Calcium) 20 Mg Tablet 20 Mg PO HS Novolog Flexpen (Insulin Aspart) 100 Unit/1 Ml Insuln.pen 16 Unit SQ TIDWMEALS Vitals/I & O Vital Sign - Last 24 Hours 06/04/21 06/04/21 06/04/21 06/04/21 11:22 15:25 19:15 19:40 Temp 98.1 98.1 98.5 98.1 98.1 98.5 Pulse 84 82 89 Resp 18 18 22 B/P (MAP) 181/67 (105) 161/77 (105) 156/78 (104) Pulse Ox 95 99 100 O2 Delivery NonRebreather Mask NonRebreather Mask NonRebreather Mask Non- Rebreather O2 Flow Rate 15.0 15.0 15.0 14.0 06/04/21 06/05/21 06/05/21 23:03 03:00 07:00 Temp 97.9 98.3 97.5 97.9 98.3 97.5 Pulse 75 77 79 Resp 22 20 20 B/P (MAP) 107/84 (92) 150/74 (99) 155/81 (105) Pulse Ox 100 100 100 O2 Delivery NonRebreather Mask NonRebreather Mask NonRebreather Mask O2 Flow Rate 15.0 15.0 15.0 Intake and Output 06/04/21 06/04/21 06/05/21 15:00 23:00 07:00 Intake Total 0 ml 0 ml 1920 ml Output Total 600 ml 600 ml 1 ml Balance -600 ml -600 ml 1919 ml Justicifation of Admission Dx: Justifications for Admission: Justification of Admission Dx: Yes ZAYRA FUNG MD Jun 05, 2021 09:42
[2021-06-05 11:00] VITALS: BP 159/84
--- NOTE | 2021-06-05 11:13 | PDOC ---
[facility] PROGRESS NOTE Date of Service DOS: DATE: 06/05/21 TIME: 11:12 Chief Complaint Chief Complaint UTI Weakness Baseline altered mental status History of type 2 diabetes Hypertension History of Bipolar -Altered mental status at living facility -Found to have UTI. Continue cefepime -DVT prophylaxis -PT OT ordered -Home meds resumed as indicated -We will start sliding scale for blood sugar adjust as needed -Diet as tolerated History of Present Illness History of Present Illness Patient unable to provide history history from emergency room. 70-year-old female who is a [place] [facility] resident and is baseline nonverbal from previous stroke patient presents to the emergency department with mental status change at her [place] [facility]. Reportedly she was seen staring off into space for more time than usual and had twitching movements of her face. She was then sent to the ER for further evaluation. She apparently had a urinalysis done at the nursing facility which showed infection but she was not treated for this infection yet. Blood sugar in the field was 120. The patient is unable to provide any history secondary to her baseline mental status. There is no concrete seizure-like activity seen at the nursing facility. 05/27: Low-grade fever overnight (T-max 99.9 F), breathing on 3 L nasal cannula. Continue Rocephin 1 g daily. Will continue to follow urine culture. Unknown baseline mental status, but once we have results of urine culture she can be discharged to complete her antibiotic course as outpatient. If no improvement in her mental status after completion of antibiotic treatment with appropriate sensitivities, will consult neurology. 05/28: Febrile overnight, T-max 102.5 F. Currently on 14 L nonrebreather. No urine cultures to date. Today should be her third dose of Rocephin. Will obtain repeat UA with culture, however concerned that she has been on antibiotics for the past 2 days. Chest x-ray yesterday showed no acute pulmonary finding. Blood cultures yesterday showed gram-positive cocci in clusters, suggestive of staph in 1 of 4 bottles. Initially thought blood cultures may be contaminants, but due to fever and worsening WBC. After c onsultation with ID, next likely source could be CSF. Discussed with daughter and she is agreeable to lumbar puncture. Will place LP orders; she will need to hold her Eliquis likely for 2 days prior to this procedure. Critical care time 30 minutes spent reviewing charts, reviewing labs, reviewing imaging, discussion with daughter, and discussion with Dr. Elkins. 05/29/2021: Afebrile overnight, on 15 L nonrebreather. No significant improvement in mentation. Urine culture growing Klebsiella pneumonia; will continue to follow urine culture for sensitivities. Currently on daptomycin and cefepime. Final blood culture showing Staph capitis; repeat blood cultures pending. CSF results showed no organisms on Gram stain. 05/30/2021: Afebrile, still breathing on 15 L nonrebreather. Discussed with patient's daughter, she had a similar presentation about 1 month ago and clinical response was slow to improve about 2-3 days following her appropriate antibiotic treatment for UTI. Patient was able to follow me with her eyes yesterday and lightly squeeze my hand. This morning she is sleeping deeply; will reevaluate mental status this afternoon. 05/31/2021: See breathing on 14 L nonrebreather. Upon review of her paperwork for [facility] [place] it is noted that patient is DNR; will make appropriate changes in the EMR. Consultation placed to neurology given appropriate medical treatment and improvement in mental status. Per Dr. Rangel, no additional neurologic tests required at this time, with taper off Depakote. Continue to monitor for clinical recovery. 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 Patient continued to have some significant hypertension; continue as needed hydralazine. Appreciate neurology recommendations. Will continue cefepime, per ID. 06/02/2021: Afebrile. Much more improved today. Opens both eyes to questions and stimulus. Still not speaking. Hopefully she will continue to improve and become more verbal in the next day. 06/03 Patient evaluated examined at bedside. Still did not speak at all but based on previous days report does seem her mental status has improved much more alert. She is afebrile still. Continuing cefepime for now. Infectious disease following. We will continue to closely monitor mental status. Plan of care discussed with bedside RN 06/04 Patient evaluated and examined at bedside. Mental status not quite as alert as yesterday. Really overall not much improvement. Remains notably altered. Contacted daughter and spoke with her on the phone for approximately 25 minutes about patient's case and future plans. Patient daughter reported she had thought about it and discussed with some family members and they are ready to pursue hospice. Notified social work and referral sent. Continue current treatments for now until family members can arrive tomorrow. Hospice eval pending. 06/05 Patient evaluated and examined at bedside. No major clinical changes. Family members to arrive down today. They would like hospice at the medical [place]. Patient can really discharge anytime this is set up at this point. Plan of care discussed with bedside RN Vitals/I&O Vitals/I&O: Vital Signs Date Time Temp Pulse Resp B/P (MAP) Pulse Ox O2 Delivery O2 Flow Rate FiO2 06/05/21 11:00 98.2 85 20 159/84 (109) 99 NonRebreather Mask 15.0 98.2 I & O 06/04/21 06/04/21 06/05/21 15:00 23:00 07:00 Intake Total 0 ml 0 ml 1920 ml Output Total 600 ml 600 ml 1 ml Balance -600 ml -600 ml 1919 ml Physical Exam Physical Exam: GENERAL: Well-developed, well-nourished female, opens eyes to stimuli Nonrebreather HEENT: Eyes closed, unable to open mouth, on nonrebreather. NECK: Supple. LUNGS: Clear anteriorly. HEART: S1, S2. No murmurs. ABDOMEN: Soft, nontender, bowel sounds present. EXTREMITIES: No edema, no clubbing, no cyanosis. DERM: No generalized rash, some chronic venous stasis changes present over both the lower extremities, mild redness present. No open wounds noted. CENTRAL NERVOUS SYSTEM: Unable to assess. PSYCHIATRIC: Unable to assess. General: Alert, Other (Will open eyes when aroused, and and lightly squeeze hand.) Heart: Regular rate Lungs: Clear Abdomen: Soft, No tenderness Extremities: No clubbing, No cyanosis Skin: No rashes, No breakdown Labs Labs: Laboratory Tests Test 06/04/21 11:50 06/04/21 16:42 06/04/21 20:39 06/05/21 08:26 Glucose (Fingerstick) 252 mg/dL (70-99) 230 mg/dL (70-99) 215 mg/dL (70-99) 269 mg/dL (70-99) Assessment and Plan Assessmemt and Plan Problems Medical Problems: (1) Altered mental state Status: Acute (2) UTI (urinary tract infection) Status: Acute Comment Review of Relevant I have reviewed the following items venita (where applicable) has been applied. Justifications for Admission Other Justification Altered mental status and acute UTI WENDY LE MD Jun 05, 2021 11:13
--- NOTE | 2021-06-05 14:04 | SNU/HH DC ---
DISCHARGE ORDERS DISCHARGE INFORMATION: DISCHARGE DATE: Jun 05, 2021 FINAL DIAGNOSIS Problems Medical Problems: (1) Altered mental state Status: Acute (2) UTI (urinary tract infection) Status: Acute CONDITION ON DISCHARGE: Guarded CODE STATUS: Code Status: DNR/DNI HOSPICE: HOSPICE: Yes HOSPICE EVAL & TREAT: Yes POST DISCHARGE ORDERS: ACTIVITY ORDERS: Activity as tolerated, Other, see below WEIGHT BEARING STATUS: As tolerated DIET AFTER DISCHARGE: Cardiac WOUND/INCISION CARE: Change dressing CHECKS AFTER DISCHARGE: CHECKS AFTER DISCHARGE: Check blood press - daily, Check blood sugar, ac/hs, Ch terry your Temp as needed, Weigh Yourself Daily TREATMENT/EQUIPMENT ORDERS: ADAPTIVE EQUIPMENT NEEDED: None, Front wheeled walker Physical Therapy For: Evalulation/Treatment Occupational Therapy For: Evaluation/Treatment Speech Language Pathology For: Evaluation/Treatment DISCHARGE MEDICATIONS: Home Meds Active Scripts Pantoprazole Sodium (PANTOPRAZOLE SODIUM ) 40 Mg Tablet.dr, 40 MG PO DAILYAC for GERD for 30 Days, #30 TAB.SR Prov:HALIMA OVALLE MD 03/21/21 Acetaminophen (ACETAMINOPHEN) 325 Mg Tablet, 650 MG PO PRN Q4HRS PRN for TEMP OVER 100.4F OR MILD PAIN for 30 Days, #60 TAB Prov:HALIMA OVALLE MD 03/21/21 Reported Medications Cetirizine Hcl (ZYRTEC) 10 Mg Tablet, 10 MG PO DAILY for ALLERGIES, TAB 03/13/21 Ondansetron Hcl (ONDANSETRON HCL) 4 Mg Tablet, 4 MG PO BID PRN for NAUSEA/VOMITING, TAB 03/13/21 Polyethylene Glycol 3350 (POLYETHYLENE GLYCOL 3350) 2,500 Gm Powder, 17 GM PO DAILY for CONSTIPATION, MISC 03/13/21 Docusate Sodium (COLACE) 100 Mg Capsule, 100 MG PO BID for CONSTIPATION, CAP 03/13/21 Citalopram Hydrobromide (CELEXA) 20 Mg Tablet, 20 MG PO DAILY for DEPRESSION, TAB 03/13/21 Aspirin (ASPIRIN) 81 Mg Tab.chew, 81 MG PO DAILY for PPX, TAB.CHEW 03/13/21 Apixaban (ELIQUIS) 5 Mg Tablet, 5 MG PO BID for AFIB, TAB 03/13/21 Insulin Glargine,Hum.rec.anlog (LANTUS SOLOSTAR) 100 Unit/1 Ml Insuln.pen, 25 UNIT SQ QHS for DM II, #15 ML 3 Refills 02/12/20 Nystatin (NYSTATIN) 15 Gm Powder, 15 GM TP BID for Breast, groin, abdoman, MISC 10/02/19 Atorvastatin Calcium (LIPITOR) 20 Mg Tablet, 20 MG PO HS for FOR CHOLESTEROL, #30 TAB 0 Refills 10/02/19 Insulin Aspart (NOVOLOG FLEXPEN) 100 Unit/1 Ml Insuln.pen, 16 UNIT SQ TIDWMEALS, SYR 03/13/15 Discontinued Reported Medications Divalproex Sodium (DEPAKOTE ER) 500 Mg Tab.er.24h, 500 MG PO BID for BIPOLAR, TAB.SR 03/13/21 Discontinued Scripts Amoxicillin/Potassium Clav (AUGMENTIN 250-62.5 MG/5 ML) 250 Mg/5 Ml Susp.recon, 10 ML PO BID for UTI for 7 Days, #200 ML 0 Refills Prov:HALIMA OVALLE MD 03/21/21 Cholecalciferol (Vitamin D3) (Vitamin D3 ) 25 Mcg Tablet, 1000 UNIT PO DAILY for BONE HEALTH for 30 Days, #30 TAB Prov:HALIMA OVALLE MD 03/21/21 Ascorbic Acid (VITAMIN C) 1,000 Mg Tablet, 1000 MG PO TID for SUPPLEMENT for 30 Days, #90 TAB Prov:HALIMA OVALLE MD 03/21/21 Thiamine Mononitrate (VITAMIN B-1) 100 Mg Tablet, 100 MG PO DAILY for SUPPLEMENT for 30 Days, #30 TAB Prov:HALIMA OVALLE MD 03/21/21 Insulin Lispro (Admelog) 100 Unit/1 Ml Vial, 0 UNITS SQ TIDWMEALS for PER SS PROTOCOL for 14 Days, #1 EACH Prov:HALIMA OVALLE MD 03/21/21 Lactobacillus Rhamnosus Gg (CULTURELLE) 1 Each Cap.sprink, 1 CAP PO BID for SUPPLEMENT for 30 Days, #60 CAP Prov:HALIMA OVALLE MD 03/21/21 Zinc Sulfate (Zinc Sulfate) 50 Mg Capsule, 220 MG PO DAILY for SUPPLEMENT for 30 Days, #132 CAP Prov:HALIMA OVALLE MD 03/21/21 WENDY LE MD Jun 05, 2021 14:04
[2021-06-05 15:00] VITALS: BP 153/73
--- NOTE | 2021-06-05 16:18 | NUR ---
SW following. Discussed with RN, pt's daughter arriving this afternoon to sign consents with [facility] hospice. Equipment delivered to [facility], and they are ready for pt. [employer] form completed and provided to RN to set up once everything is said and done with getting the consents signed. RN aware and agreeable. SW will continue to follow.
--- NOTE | 2021-06-05 17:18 | NUR ---
[facility] to speak with daughter re: paper work for d/c to [facility] [place]. Daughter asked if IV could be left in. Spoke with [facility], they stated it must be taken out and they could start a new one at a later time if needed.
--- NOTE | 2021-06-05 19:00 | NUR ---
Pt. discharged to via EMS.
--- NOTE | 2021-06-23 20:48 | PDOC3 ---
[facility]-Discharge Summary Date of Admission: Date of Admission: May 26, 2021 Date of Discharge: Date of Discharge: Jun 05, 2021 Admission Diagnosis: Admitting Diagnosis: AMS Discharge Diagnosis: Discharge Diagnosis: Same Hospital Course: Hospital Course: hief Complaint UTI Weakness Baseline altered mental status History of type 2 diabetes Hypertension History of Bipolar -Altered mental status at living facility -Found to have UTI. Continue cefepime -DVT prophylaxis -PT OT ordered -Home meds resumed as indicated -We will start sliding scale for blood sugar adjust as needed -Diet as tolerated History of Present Illness History of Present Illness Patient unable to provide history history from emergency room. 70-year-old female who is a intermediate resident and is baseline nonverbal from previous stroke patient presents to the emergency department with mental status change at her intermediate. Reportedly she was seen staring off into space for more time than usual and had twitching movements of her face. She was then sent to the ER for further evaluation. She apparently had a urinalysis done at the nursing facility which showed infection but she was not treated for this infe ction yet. Blood sugar in the field was 120. The patient is unable to provide any history secondary to her baseline mental status. There is no concrete seizure-like activity seen at the nursing facility. 05/27: Low-grade fever overnight (T-max 99.9 F), breathing on 3 L nasal cannula. Continue Rocephin 1 g daily. Will continue to follow urine culture. Unknown baseline mental status, but once we have results of urine culture she can be discharged to complete her antibiotic course as outpatient. If no improvement in her mental status after completion of antibiotic treatment with appropriate sensitivities, will consult neurology. 05/28: Febrile overnight, T-max 102.5 F. Currently on 14 L nonrebreather. No urine cultures to date. Today should be her third dose of Rocephin. Will obtain repeat UA with culture, however concerned that she has been on antibiotics for the past 2 days. Chest x-ray yesterday showed no acute pulmonary finding. Blood cultures yesterday showed gram-positive cocci in clusters, suggestive of staph in 1 of 4 bottles. Initially thought blood cultures may be contaminants, but due to fever and worsening WBC. After consultation with ID, next likely source could be CSF. Discussed with daughter and she is agreeable to lumbar puncture. Will place LP orders; she will need to hold her Eliquis likely for 2 days prior to this procedure. Critical care time 30 minutes spent reviewing charts, reviewing labs, reviewing imaging, discussion with daughter, and discussion with Dr. Elkins. 05/29/2021: Afebrile overnight, on 15 L nonrebreather. No significant improvement in mentation. Urine culture growing Klebsiella pneumonia; will continue to follow urine culture for sensitivities. Currently on daptomycin and cefepime. Final blood culture showing Staph capitis; repeat blood cultures pending. CSF results showed no organisms on Gram stain. 05/30/2021: Afebrile, still breathing on 15 L nonrebreather. Discussed with patient's daughter, she had a similar presentation about 1 month ago and clinical response was slow to improve about 2-3 days following her appropriate antibiotic treatment for UTI. Patient was able to follow me with her eyes yesterday and lightly squeeze my hand. This morning she is sleeping deeply; will reevaluate mental status this afternoon. 05/31/2021: See breathing on 14 L nonrebreather. Upon review of her paperwork for [facility] it is noted that patient is DNR; will make appropriate changes in the EMR. Consultation placed to neurology given appropriate medical treatment and improvement in mental status. Per Dr. Rangel, no additional neurologic tests required at this time, with taper off Depakote. Continue to monitor for clinical recovery. 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 Patient continued to have some significant hypertension; continue as needed hydralazine. Appreciate neurology recommendations. Will continue cefepime, per ID. 06/02/2021: Afebrile. Much more improved today. Opens both eyes to questions and stimulus. Still not speaking. Hopefully she will continue to improve and become more verbal in the next day. 06/03 Patient evaluated examined at bedside. Still did not speak at all but based on previous days report does seem her mental status has improved much more alert. She is afebrile still. Continuing cefepime for now. Infectious disease following. We will continue to closely monitor mental status. Plan of care discussed with bedside RN 06/04 Patient evaluated and examined at bedside. Mental status not quite as alert as yesterday. Really overall not much improvement. Remains notably altered. Contacted daughter and spoke with her on the phone for approximately 25 minutes about patient's case and future plans. Patient daughter reported she had thought about it and discussed with some family members and they are ready to pursue hospice. Notified social work and referral sent. Continue current treatments for now until family members can arrive tomorrow. Hospice eval pending. 06/05 Patient evaluated and examined at bedside. No major clinical changes. Family members to arrive down today. They would like hospice at the [facility]. Patient can really discharge anytime this is set up at this point. Plan of care discussed with bedside RN Patient discharged. Disposition: Disposition/Orders: Other (dc hospice) Activity: Activity: Resume previous activity Diet: Diet: Regular Medications: Home Meds Active Scripts Pantoprazole Sodium (PANTOPRAZOLE SODIUM ) 40 Mg Tablet.dr, 40 MG PO DAILYAC for GERD for 30 Days, #30 TAB.SR Prov:HALIMA OVALLE MD 03/21/21 Acetaminophen (ACETAMINOPHEN) 325 Mg Tablet, 650 MG PO PRN Q4HRS PRN for TEMP OVER 100.4F OR MILD PAIN for 30 Days, #60 TAB Prov:HALIMA OVALLE MD 03/21/21 Reported Medications Cetirizine Hcl (ZYRTEC) 10 Mg Tablet, 10 MG PO DAILY for ALLERGIES, TAB 03/13/21 Ondansetron Hcl (ONDANSETRON HCL) 4 Mg Tablet, 4 MG PO BID PRN for NAUSEA/VOMITING, TAB 03/13/21 Polyethylene Glycol 3350 (POLYETHYLENE GLYCOL 3350) 2,500 Gm Powder, 17 GM PO DAILY for CONSTIPATION, MISC 03/13/21 Docusate Sodium (COLACE) 100 Mg Capsule, 100 MG PO BID for CONSTIPATION, CAP 03/13/21 Citalopram Hydrobromide (CELEXA) 20 Mg Tablet, 20 MG PO DAILY for DEPRESSION, TAB 03/13/21 Aspirin (ASPIRIN) 81 Mg Tab.chew, 81 MG PO DAILY for PPX, TAB.CHEW 03/13/21 Apixaban (ELIQUIS) 5 Mg Tablet, 5 MG PO BID for AFIB, TAB 03/13/21 Insulin Glargine,Hum.rec.anlog (LANTUS SOLOSTAR) 100 Unit/1 Ml Insuln.pen, 25 UNIT SQ QHS for DM II, #15 ML 3 Refills 02/12/20 Nystatin (NYSTATIN) 15 Gm Powder, 15 GM TP BID for Breast, groin, abdoman, MISC 10/02/19 Atorvastatin Calcium (LIPITOR) 20 Mg Tablet, 20 MG PO HS for FOR CHOLESTEROL, #3 0 TAB 0 Refills 10/02/19 Insulin Aspart (NOVOLOG FLEXPEN) 100 Unit/1 Ml Insuln.pen, 16 UNIT SQ TIDWMEALS, SYR 03/13/15 Scheduled Apixaban (Eliquis), 5 MG PO BID, (Reported) Aspirin (Aspirin), 81 MG PO DAILY, (Reported) Atorvastatin Calcium (Lipitor), 20 MG PO HS, (Reported) Cetirizine Hcl (Zyrtec), 10 MG PO DAILY, (Reported) Citalopram Hydrobromide (Celexa), 20 MG PO DAILY, (Reported) Docusate Sodium (Colace), 100 MG PO BID, (Reported) Insulin Aspart (Novolog Flexpen), 16 UNIT SQ TIDWMEALS, (Reported) Insulin Glargine,Hum.rec.anlog (Lantus Solostar), 25 UNIT SQ QHS, (Reported) Nystatin (Nystatin), 15 GM TP BID, (Reported) Pantoprazole Sodium (Pantoprazole Sodium ), 40 MG PO DAILYAC Polyethylene Glycol 3350 (Polyethylene Glycol 3350), 17 GM PO DAILY, (Reported) Scheduled PRN Acetaminophen (Acetaminophen), 650 MG PO PRN Q4HRS PRN for TEMP OVER 100.4F OR MILD PAIN Ondansetron Hcl (Ondansetron Hcl), 4 MG PO BID PRN for NAUSEA/VOMITING, (Reported) Justicifation of Admission Dx: Justifications for Admission: Justification of Admission Dx: Yes WENDY LE MD Jun 23, 2021 20:48
== END 2021-06-05 19:00 | disposition hospice, inpatient (51) | DRG 871 ==
LOC: ER 18:06 → 4 NORTH 19:00
PROVIDERS: ADMIT Student in an Organized Health Care Education/Training Program; ATTEND Student in an Organized Health Care Education/Training Program
PROC: 009U3ZX Drainage of Spinal Canal, Percutaneous Approach, Diagnostic (ICD-10-PCS; principal; 2021-05-28)
PROC: B01B1ZZ Fluoroscopy of Spinal Cord using Low Osmolar Contrast (ICD-10-PCS; 2021-05-28)
DX: A41.89 Other specified sepsis (principal); G93.41 Metabolic encephalopathy; J96.01 Acute respiratory failure with hypoxia; N39.0 Urinary tract infection, site not specified; Z16.23 Resistance to quinolones and fluoroquinolones; R47.01 Aphasia; B96.1 Klebsiella pneumoniae [K. pneumoniae] as the cause of diseases classified elsewhere; B96.89 Other specified bacterial agents as the cause of diseases classified elsewhere; E11.40 Type 2 diabetes mellitus with diabetic neuropathy, unspecified; E78.5 Hyperlipidemia, unspecified; F02.80 Dementia in other diseases classified elsewhere, unspecified severity, without behavioral disturbance, psychotic disturbance, mood disturbance, and anxiety; F20.9 Schizophrenia, unspecified; F31.9 Bipolar disorder, unspecified; G20 Parkinson's disease; G24.9 Dystonia, unspecified; I10 Essential (primary) hypertension; I48.91 Unspecified atrial fibrillation; Z66 Do not resuscitate; Z86.16 Personal history of COVID-19; Z87.891 Personal history of nicotine dependence; Z90.710 Acquired absence of both cervix and uterus; M10.9 Gout, unspecified; Z20.822 Contact with and (suspected) exposure to COVID-19; Z86.73 Personal history of transient ischemic attack (TIA), and cerebral infarction without residual deficits
CPT/HCPCS: 31720; 36415; 62270; 70450; 71045; 74176; 80048; 80053; 81001; 82550; 82805; 82945; 82962; 83605; 84157; 85007; 85025; 85610; 85730; 87040; 87071; 87075; 87077; 87086; 87186; 87205; 87498; 89051; 94760; 96374; 96375; C9113; J0360; J0692; J0696; J0878; J1644; J1815; J2405; J3490; J7030; J7060; U0003; U0005; 99285-25; G0378